=== PATIENT | male | born 1955 | race Caucasian/White ===

== ENCOUNTER 2022-06-30 10:26 | Emergency (ER) | payer SELFPAY ==
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
[2022-06-30 11:45] VITALS: BP 131/86; PULSE 85; RESP 16; TEMP 36.6; O2SAT 95; BMI 30.7
== END 2022-06-30 15:53 | disposition left against medical advice (07) ==
LOC: HO.ED 15:50
PROVIDERS: Emergency Provider Emergency Medicine; PCP Internal Medicine
DX: R07.81 Pleurodynia (principal)
CPT/HCPCS: 71101; 99281; 99283

== ENCOUNTER 2022-10-11 15:57 | Inpatient (IN) | payer OTHER, SELFPAY ==
--- NOTE | ~2022-10-11 | CT_ITS ---
EXAMINATION: CT ABDOMEN AND PELVIS WITHOUT CONTRAST CLINICAL INFORMATION: Right flank pain COMPARISON: CT abdomen pelvis 04/17/2017 TECHNIQUE: Multidetector volumetric imaging was performed from the superior aspect of the liver through the pubic symphysis. Sagittal and coronal reformatted images were obtained on the technologist's workstation. This CT examination was performed using dose optimization techniques as appropriate, variously including the following: *Automated exposure control *Adjustment of mA and/or kV according to patient size (this includes techniques or standardized protocols for targeted exams where dose is matched to indication/reason for exam; i.e. extremities or head) *Use of iterative reconstruction technique DLP: 665 mGy-cm FINDINGS: LUNG BASES: The visualized lung bases are unremarkable. LIVER, GALLBLADDER, AND BILIARY TREE: The liver is normal in size, shape, and attenuation. No focal hepatic lesion or biliary ductal dilatation is present. The gallbladder is unremarkable with no evidence of radiopaque gallstones, gallbladder wall thickening, or obvious pericholecystic inflammatory changes. PANCREAS: Unremarkable. SPLEEN: Unremarkable. ADRENAL GLANDS: Unremarkable. KIDNEYS AND URETERS: Left kidney: Moderate to marked hydronephrosis of left kidney with distention renal pelvis calyces and the proximal left ureter. There is an obstructing 5 mm stone in the left ureter at about the level of the L4 vertebrae. Sagittal image 47/118 series 6. Similar findings of a left ureteral stone at L4 and hydronephrosis left kidney seen on the prior CAT scan of 04/17/2017. On the renal ultrasound exam of 04/03/2019 there was no hydronephrosis. No additional ureteral stone. There are several stones in left kidney at the mid upper pole measuring less than 1 mm. Right kidney: No renal or ureteral calculus. No hydronephrosis. Both kidneys are of normal size and contour with normal cortical thickness. BLADDER: Unremarkable. GASTROINTESTINAL TRACT: No acute abnormality. There is no bowel wall thickening /edema. There is no bowel obstruction. There is a moderate volume of stool in the colon. The appendix is normal . The small bowel loops are unremarkable. The stomach is normal. There is no hiatal hernia. ABDOMINAL WALL: No significant hernia is appreciated. LYMPH NODES: Normal. VASCULAR: Unremarkable. PELVIC VISCERA: Unremarkable. OSSEOUS STRUCTURES: Multilevel degenerative spondylosis spine. Vacuum disc phenomenon L5-S1. CT/CT abdomen pelvis wo IV con IMPRESSION: Moderate to marked hydronephrosis of left kidney due to an obstructing 5 mm stone in the left ureter. Similar findings of a left ureteral stone at L4 and hydronephrosis left kidney seen on the prior CAT scan of 04/17/2017. On the renal ultrasound exam of 04/03/2019 there was no hydronephrosis. Fleischner guidelines were followed.
--- NOTE | ~2022-10-11 | FL_ITS ---
EXAMINATION: XR FLUOROSCOPY WITH IMAGES CLINICAL INFORMATION: Left cystoscopy, ureteroscopy, retrograde. Left hydronephrosis and ureteral calculus. COMPARISON: CT abdomen noncontrast 10/11/2022. TECHNIQUE: Fluoroscopy Supervised By: Dr. Goldy Ramirez. Fluoroscopy Time: 29 seconds. Cumulative Dose: 12.4 mGy. Images: 2. FINDINGS: First fluoroscopic image shows contrast in the lower left ureter. The follow-up fluoroscopic image shows proximal end left ureteral stent in position. FL/FL guidance in OR IMPRESSION: Fluoroscopy for urologic procedures.
[2022-10-11 16:10] VITALS: BP 162/98; PULSE 101; RESP 22; TEMP 36.6; O2SAT 95; BMI 30.8
--- NOTE | 2022-10-11 16:12 | ED.GENADULT ---
HPI - General Adult General Chief complaint: Urogenital-Male <THEO Chance - Last Filed: 10/17/22 12:28> Stated complaint: catscan? <THEO Chanec - Last Filed: 10/17/22 12:28> Time Seen by Provider: 10/11/22 20:36 <THEO Chance - Last Filed: 10/17/22 12:28> Source: patient <Verónica Hackett MD - Last Filed: 10/11/22 21:14> Mode of arrival: ambulatory <Verónica Hackett MD - Last Filed: 10/11/22 21:14> History of Present Illness HPI narrative: 67-year-old male who presents with worsening left flank pain since 5 days with associated abdominal distension, dysuria, chills and nausea. [facility]. <Verónica Hackett MD - Last Filed: 10/11/22 21:14> Related Data Home medications: Home Medications Medication Instructions Recorded Confirmed atorvastatin 80 mg tablet 40 mg PO BEDTIME 10/11/22 10/11/22 fluticasone 250 mcg-salmeterol 50 1 inh inhalation BID 10/11/22 10/11/22 mcg/dose blistr powdr for inhalation (Wixela Inhub) lisinopril 2.5 mg tablet 2.5 mg PO DAILY 10/11/22 10/11/22 metformin 500 mg tablet 500 mg PO DAILY 10/11/22 10/11/22 multivitamin 1 tab PO DAILY 10/11/22 10/11/22 sertraline 100 mg tablet 100 mg PO BEDTIME 10/11/22 10/11/22 tiotropium bromide 2.5 2 puff inhalation DAILY 10/11/22 10/11/22 mcg/actuation mist for inhalation (Spiriva Respimat) trazodone 50 mg tablet 50 mg PO BEDTIME PRN Insomnia 10/11/22 10/11/22 Previous Rx's Medication Instructions Recorded phenazopyridine 100 mg tablet 100 mg PO TID PRN Spasm 4 days #12 10/12/22 (Pyridium) tabs sulfamethoxazole 800 1 tab PO BID 3 days #6 tabs 10/12/22 mg-trimethoprim 160 mg tablet (Bactrim DS) tamsulosin 0.4 mg capsule 0.4 mg PO BEDTIME 14 days #14 caps 10/12/22 tramadol 50 mg tablet 50 mg PO Q6H PRN pain (scale score 10/12/22 1-3) #8 tabs <THEO Chance - Last Filed: 10/17/22 12:28> Allergies/adverse reactions: Allergies Allergy/AdvReac Type Severity Reaction Status Date / Time No Known Allergies Allergy Verified 06/30/22 11:48 [No Known Allergies*] <THEO Chance - Last Filed: 10/17/22 12:28> Review of Systems Review of Systems: Pertinent positives and negatives as stated in HPI <Verónica Hackett MD - Last Filed: 10/11/22 21:14> PMFSH Past Medical History Source: nursing notes reviewed <Verónica Hackett MD - Last Filed: 10/11/22 21:14> Medical History: Medical History Essential hypertension Mixed hyperlipidemia Mood disorder Non-insulin dependent type 2 diabetes mellitus <THEO Chance - Last Filed: 10/17/22 12:28> Social History Social History: Social History Patient Tobacco Use Status: Former Tobacco user service: Yes Current occupational status: retired <THEO Chance - Last Filed: 10/17/22 12:28> Physical Exam ED Vital Signs: Vital Signs - 24 hr 10/11/22 16:10 10/11/22 20:37 Temperature 98 F 98.6 F Pulse Rate 101 H 94 Respiratory Rate 22 H Blood Pressure 162/98 H 140/86 H Pulse Oximetry 95 95 Oxygen Delivery Method Room Air Room Air BMI result Body Mass Index 30.8 <THEO Chance - Last Filed: 10/17/22 12:28> Vital Signs - 24 hr 10/11/22 16:10 10/11/22 20:37 Temperature 98 F 98.6 F Pulse Rate 101 H 94 Respiratory Rate 22 H Blood Pressure 162/98 H 140/86 H Pulse Oximetry 95 95 Oxygen Delivery Method Room Air Room Air BMI result Body Mass Index 30.8 VITAL SIGNS: Reviewed. GENERAL: Well developed, well nourished, in no acute distress. HEAD: Normocephalic/atraumatic EYES: PERRLA, EOMI LUNGS: Normal breath sounds. No adventitious sounds or accessory muscle use. SpO2<95> CARDIOVASCULAR: Regular rate and rhythm without noted murmurs ABDOMEN: Soft, left flank pain on palpation, non-distended with bowel sounds. MUSCULOSKELETAL: No tenderness, deformities, or effusions noted on gross inspection. EXTREMITIES: No cyanosis, clubbing or edema. SKIN: Inspection of the skin reveals no rashes NEUROLOGIC: Alert and oriented x 4. Strength and sensation to light touch were grossly intact x 4. <Verónica Hackett MD - Last Filed: 10/11/22 21:14> Course Course Course Narrative: RME: 67 yold male preesnts to the ED for Right flank pain for 1 weeks. patient has known kidney stones in right side. patient states pain has worsening. Patient states no nausea or vomitting. patient states no fever or chills. labs, UA, CT scan of abdomen ordered <THEO Chance - Last Filed: 10/17/22 12:28> Medications Administered Discontinued Medications Generic Name Dose Route Start Last Admin Trade Name Freq PRN Reason Stop Dose Admin Acetaminophen 975 mg 10/11/22 21:30 10/11/22 21:54 Acetaminophen 325 Mg Tablet PO 10/11/22 21:31 975 mg ONCE ONE Administration Fentanyl 25 mcg 10/11/22 21:00 10/11/22 21:52 Fentanyl Citrate/Pf 100 Mcg/2 Ml Vial IVPUSH 10/11/22 21:01 25 mcg ONCE ONE Administration Protocol Sodium Chloride 1,000 mls @ 999 mls/hr 10/11/22 21:00 10/11/22 22:56 Ns IV 10/11/22 22:00 Infused .Q1H1M KUMAR Infusion Ceftriaxone Sodium 1 gm/ 50 mls @ 100 mls/hr 10/11/22 22:00 10/11/22 22:25 Sodium Chloride IV Infused Q24H KUMAR Infusion Sodium Chloride 1,000 mls @ 80 mls/hr 10/11/22 21:45 10/12/22 07:18 Ns IVCONT 80 mls/hr .[id number] KUMAR Administration Insulin Human Lispro 0 unit 10/12/22 07:30 10/12/22 07:19 Insulin Lispro 100 Unit/Ml 3 Ml Vial SUBCUT Not Given QIDAS [facility] Protocol Morphine Sulfate 4 mg 10/11/22 21:13 10/12/22 08:54 Morphine Sulfate 4 Mg/Ml Cartridge IVPUSH 4 mg Q4H PRN Administration Pain, Severe (Pain Scale 7-10) Protocol Ondansetron HCl 4 mg 10/11/22 21:13 10/12/22 08:54 Ondansetron Hcl 4 Mg/2 Ml Vial IVPUSH 4 mg Q8H PRN Administration Nausea and Vomiting Sodium Chloride 3 ml 10/12/22 00:00 10/12/22 07:11 0.9 % Sodium Chloride Flush 3 Ml Syringe IVFLUSH Not Given QSTHE [facility] Trazodone HCl 50 mg 10/12/22 05:06 10/12/22 05:33 Trazodone Hcl 50 Mg Tablet PO 10/12/22 05:07 50 mg ONCE ONE Administration <THEO Chance - Last Filed: 10/17/22 12:28> Medications Administered Discontinued Medications Generic Name Dose Route Start Last Admin Trade Name Freq PRN Reason Stop Dose Admin Acetaminophen 975 mg 10/11/22 21:30 10/11/22 21:54 Acetaminophen 325 Mg Tablet PO 10/11/22 21:31 975 mg ONCE ONE Administration Fentanyl 25 mcg 10/11/22 21:00 10/11/22 21:52 Fentanyl Citrate/Pf 100 Mcg/2 Ml Vial IVPUSH 10/11/22 21:01 25 mcg ONCE ONE Administration Protocol Sodium Chloride 1,000 mls @ 999 mls/hr 10/11/22 21:00 10/11/22 22:56 Ns IV 10/11/22 22:00 Infused .Q1H1M [facility] Infusion Ceftriaxone Sodium 1 gm/ 50 mls @ 100 mls/hr 10/11/22 22:00 10/11/22 22:25 Sodium Chloride IV Infused Q24H [facility] Infusion Sodium Chloride 1,000 mls @ 80 mls/hr 10/11/22 21:45 10/12/22 07:18 Ns IVCONT 80 mls/hr .[id number] [facility] Administration Insulin Human Lispro 0 unit 10/12/22 07:30 10/12/22 07:19 Insulin Lispro 100 Unit/Ml 3 Ml Vial SUBCUT [facility] Protocol Morphine Sulfate 4 mg 10/11/22 21:13 10/12/22 08:54 Morphine Sulfate 4 Mg/Ml Cartridge IVPUSH 4 mg Q4H PRN Administration Pain, Severe (Pain Scale 7-10) Protocol Ondansetron HCl 4 mg 10/11/22 21:13 10/12/22 08:54 Ondansetron Hcl 4 Mg/2 Ml Vial IVPUSH 4 mg Q8H PRN Administration Nausea and Vomiting Sodium Chloride 3 ml 10/12/22 00:00 10/12/22 07:11 0.9 % Sodium Chloride Flush 3 Ml Syringe IVFLUSH Not Given QSHIFT [facility] Trazodone HCl 50 mg 10/12/22 05:06 10/12/22 05:33 Trazodone Hcl 50 Mg Tablet PO 10/12/22 05:07 50 mg ONCE ONE Administration <Verónica Hackett MD - Last Filed: 10/11/22 21:14> Medical Decision Making Medical Decision Making [facility] Narrative: 2104: 67-year-old male with presentation in suspicion for renal colic versus diverticulitis and on review of all investigations my interpretation is that this patient has acute obstructive uropathy with 5 mm stone associated hydronephrosis as well as pain and OSKAR with leukocytosis. Will proceed with blood cultures and antibiotics. Consultation was placed to Urology. And patient received pain medication. <Verónica Hackett MD - Last Filed: 10/11/22 21:14> Differential Diagnosis Differential Diagnoses: The differential diagnosis associated with the presentation includes <Verónica Hackett MD - Last Filed: 10/11/22 21:14> Consult Healthcare Provider Management of the patient was discussed with: Boilermaker'S Assistant <Verónica Hackett MD - Last Filed: 10/11/22 21:14> 2102: I discussed briefly with Dr. Ramirez who recommends admission and procedure in the morning as well as rehydration. 2110: I discussed case with inpatient hospitalist who accepts admission. <Verónica Hackett MD - Last Filed: 10/11/22 21:14> Lab Data [facility] Lab Attestation statement: I reviewed the patient's lab results. <Verónica Hackett MD - Last Filed: 10/11/22 21:14> Please see the discussion above <Verónica Hackett MD - Last Filed: 10/11/22 21:14> Result Diagrams: 10/11/22 16:26 10/11/22 16:26 <THEO Chance - Last Filed: 10/17/22 12:28> Labs: Lab Results 10/11/22 10/11/22 10/11/22 Range/Units 16:26 16:26 21:05 WBC 13.3 H (4.8-10.8) X10*3/uL RBC 5.07 (4.60-5.80) X10*6/uL Hgb 15.0 (14.0-18.0) g/dl Hct 43.9 (42.0-52.0) % MCV 86.6 (80.0-98.0) fL MCH 29.6 (27.0-33.0) pg MCHC 34.2 (31.0-36.0) g/dl RDW 12.9 (11.0-16.0) % Plt Count 342 (160-400) X10*3/uL MPV 10.2 (9.4-12.4) fL Immature Gran % (Auto) 0.3 (0.0-0.4) % Neut % (Auto) 77.9 H (45-73) % Lymph % (Auto) 13.2 L (20-40) % [place] % (Auto) 7.9 (2-11) % Eos % (Auto) 0.3 (0-4) % Baso % (Auto) 0.4 (0-2) % Lymph # (Auto) 1.8 (1.2-4.9) X10*3/uL [place] # (Auto) 1.1 (0.1-1.2) X10*3/uL Eos # (Auto) 0.0 (0.0-0.4) X10*3/uL Baso # (Auto) 0.1 (0.0-0.2) X10*3/uL Abs Immat Gran (auto) 0.04 H (0.00-0.03) X10*3/uL Absolute Neuts (auto) 10.4 H (2.0-8.3) x10*3/uL Absolute Nucleated RBC 0.000 (0.0-0.012) X10*3/uL Nucleated RBC % (auto) 0.0 (0.0-0.2) /100WBC Sodium 137 (135-145) mmol/L Potassium 4.5 (3.3-5.1) mmol/L Chloride 104 (96-108) mmol/L Carbon Dioxide 23 (22-29) mmol/L Anion Gap 15 (12-20) BUN 18 H (9-16) mg/dL Creatinine 1.43 H (0.5-1.4) mg/dL Estim Creat Clear Calc 56.9 Estimated GFR 49 Random Glucose 163 H (60-115) mg/dL Lactic Acid (0.5-2.0) mmol/L Calcium 9.4 (8.4-10.2) mg/dL Total Bilirubin 0.6 (0.0-1.0) mg/dL AST 23 (5-37) U/L ALT 31 (0-40) U/L Alkaline Phosphatase 80 (39-117) U/L Total Protein 7.8 (6.5-8.0) g/dL Albumin 4.4 (3.5-5.0) g/dL COVID-19 (JADEN) Negative (Negative) COVID-19 Clin Com See Note 10/11/22 Range/Units 21:05 WBC (4.8-10.8) X10*3/uL RBC (4.60-5.80) X10*6/uL Hgb (14.0-18.0) g/dl Hct (42.0-52.0) % MCV (80.0-98.0) fL MCH (27.0-33.0) pg MCHC (31.0-36.0) g/dl RDW (11.0-16.0) % Plt Count (160-400) X10*3/uL MPV (9.4-12.4) fL Immature Gran % (Auto) (0.0-0.4) % Neut % (Auto) (45-73) % Lymph % (Auto) (20-40) % [place] % (Auto) (2-11) % Eos % (Auto) (0-4) % Baso % (Auto) (0-2) % Lymph # (Auto) (1.2-4.9) X10*3/uL [place] # (Auto) (0.1-1.2) X10*3/uL Eos # (Auto) (0.0-0.4) X10*3/uL Baso # (Auto) (0.0-0.2) X10*3/uL Abs Immat Gran (auto) (0.00-0.03) X10*3/uL Absolute Neuts (auto) (2.0-8.3) x10*3/uL Absolute Nucleated RBC (0.0-0.012) X10*3/uL Nucleated RBC % (auto) (0.0-0.2) /100WBC Sodium (135-145) mmol/L Potassium (3.3-5.1) mmol/L Chloride (96-108) mmol/L Carbon Dioxide (22-29) mmol/L Anion Gap (12-20) BUN (9-16) mg/dL Creatinine (0.5-1.4) mg/dL Estim Creat Clear Calc Estimated GFR Random Glucose (60-115) mg/dL Lactic Acid 1.4 (0.5-2.0) mmol/L Calcium (8.4-10.2) mg/dL Total Bilirubin (0.0-1.0) mg/dL AST (5-37) U/L ALT (0-40) U/L Alkaline Phosphatase (39-117) U/L Total Protein (6.5-8.0) g/dL Albumin (3.5-5.0) g/dL COVID-19 (JADEN) (Negative) COVID-19 Clin Com <THEO Chance - Last Filed: 10/17/22 12:28> Lab Results 10/11/22 10/11/22 10/11/22 Range/Units 16:26 16:26 21:05 WBC 13.3 H (4.8-10.8) X10*3/uL RBC 5.07 (4.60-5.80) X10*6/uL Hgb 15.0 (14.0-18.0) g/dl Hct 43.9 (42.0-52.0) % MCV 86.6 (80.0-98.0) fL MCH 29.6 (27.0-33.0) pg MCHC 34.2 (31.0-36.0) g/dl RDW 12.9 (11.0-16.0) % Plt Count 342 (160-400) X10*3/uL MPV 10.2 (9.4-12.4) fL Immature Gran % (Auto) 0.3 (0.0-0.4) % Neut % (Auto) 77.9 H (45-73) % Lymph % (Auto) 13.2 L (20-40) % [place] % (Auto) 7.9 (2-11) % Eos % (Auto) 0.3 (0-4) % Baso % (Auto) 0.4 (0-2) % Lymph # (Auto) 1.8 (1.2-4.9) X10*3/uL [place] # (Auto) 1.1 (0.1-1.2) X10*3/uL Eos # (Auto) 0.0 (0.0-0.4) X10*3/uL Baso # (Auto) 0.1 (0.0-0.2) X10*3/uL Abs Immat Gran (auto) 0.04 H (0.00-0.03) X10*3/uL Absolute Neuts (auto) 10.4 H (2.0-8.3) x10*3/uL Absolute Nucleated RBC 0.000 (0.0-0.012) X10*3/uL Nucleated RBC % (auto) 0.0 (0.0-0.2) /100WBC Sodium 137 (135-145) mmol/L Potassium 4.5 (3.3-5.1) mmol/L Chloride 104 (96-108) mmol/L Carbon Dioxide 23 (22-29) mmol/L Anion Gap 15 (12-20) BUN 18 H (9-16) mg/dL Creatinine 1.43 H (0.5-1.4) mg/dL Estim Creat Clear Calc 56.9 Estimated GFR 49 Random Glucose 163 H (60-115) mg/dL Lactic Acid (0.5-2.0) mmol/L Calcium 9.4 (8.4-10.2) mg/dL Total Bilirubin 0.6 (0.0-1.0) mg/dL AST 23 (5-37) U/L ALT 31 (0-40) U/L Alkaline Phosphatase 80 (39-117) U/L Total Protein 7.8 (6.5-8.0) g/dL Albumin 4.4 (3.5-5.0) g/dL COVID-19 (JADEN) Negative (Negative) COVID-19 Clin Com See Note 10/11/22 Range/Units 21:05 WBC (4.8-10.8) X10*3/uL RBC (4.60-5.80) X10*6/uL Hgb (14.0-18.0) g/dl Hct (42.0-52.0) % MCV (80.0-98.0) fL MCH (27.0-33.0) pg MCHC (31.0-36.0) g/dl RDW (11.0-16.0) % Plt Count (160-400) X10*3/uL MPV (9.4-12.4) fL Immature Gran % (Auto) (0.0-0.4) % Neut % (Auto) (45-73) % Lymph % (Auto) (20-40) % [place] % (Auto) (2-11) % Eos % (Auto) (0-4) % Baso % (Auto) (0-2) % Lymph # (Auto) (1.2-4.9) X10*3/uL [place] # (Auto) (0.1-1.2) X10*3/uL Eos # (Auto) (0.0-0.4) X10*3/uL Baso # (Auto) (0.0-0.2) X10*3/uL Abs Immat Gran (auto) (0.00-0.03) X10*3/uL Absolute Neuts (auto) (2.0-8.3) x10*3/uL Absolute Nucleated RBC (0.0-0.012) X10*3/uL Nucleated RBC % (auto) (0.0-0.2) /100WBC Sodium (135-145) mmol/L Potassium (3.3-5.1) mmol/L Chloride (96-108) mmol/L Carbon Dioxide (22-29) mmol/L Anion Gap (12-20) BUN (9-16) mg/dL Creatinine (0.5-1.4) mg/dL Estim Creat Clear Calc Estimated GFR Random Glucose (60-115) mg/dL Lactic Acid 1.4 (0.5-2.0) mmol/L Calcium (8.4-10.2) mg/dL Total Bilirubin (0.0-1.0) mg/dL AST (5-37) U/L ALT (0-40) U/L Alkaline Phosphatase (39-117) U/L Total Protein (6.5-8.0) g/dL Albumin (3.5-5.0) g/dL COVID-19 (JADEN) (Negative) COVID-19 Clin Com <Verónica Hackett MD - Last Filed: 10/11/22 21:14> Radiology Impression Radiologist Impression: My interpretation is in agreement with radiology's impression of the imaging study. <Verónica Hackett MD - Last Filed: 10/11/22 21:14> Chronic Conditions Patient?s care impacted by: Diabetes and Hypertension <Verónica Hackett MD - Last Filed: 10/11/22 21:14> Critical Care Time Critical Care Time Critical Care Time: Yes <Verónica Hackett MD - Last Filed: 10/11/22 21:14> Total Critical Care Time: 30 <Verónica Hackett MD - Last Filed: 10/11/22 21:14> Attestation: I personally attest to this time spent taking care of the patient. <Verónica Hackett MD - Last Filed: 10/11/22 21:14> Discharge Plan Discharge Clinical Impression: Obstruction, uropathy, Hydronephrosis, OSKAR (acute kidney injury) <THEO Chance - Last Filed: 10/17/22 12:28> Patient Disposition: Admitted As Inpatient <THEO Chance - Last Filed: 10/17/22 12:28> Discharge Date/Time: 10/12/22 12:00 <THEO Chance - Last Filed: 10/17/22 12:28>
[2022-10-11 16:32] LABS: MANUAL DIFF FLAG NO
[2022-10-11 16:34] LABS: Basophils Absolute Auto 0.1 X10*3/uL (0.0-0.2); Basophils Percent Auto 0.4 % (0-2); Eosinophils Percent Auto 0.3 % (0-4); Hematocrit 43.9 % (42.0-52.0); Imm Gran Abs Auto 0.04 X10*3/uL (0.00-0.03); Imm Gran Pct Auto 0.3 % (0.0-0.4); Lymphocytes Absolute Auto 1.8 X10*3/uL (1.2-4.9); Lymphocytes Percent Auto 13.2 % (20-40); Mean Corpuscular HGB Conc 34.2 g/dl (31.0-36.0); Mean Corpuscular Hemoglobin 29.6 pg (27.0-33.0); Mean Corpuscular Volume 86.6 fL (80.0-98.0); Mean Platelet Volume 10.2 fL (9.4-12.4); Monocytes Absolute Auto 1.1 X10*3/uL (0.1-1.2); Monocytes Percent Auto 7.9 % (2-11); Neutrophils Absolute Auto 10.4 x10*3/uL (2.0-8.3); Neutrophils Percent Auto 77.9 % (45-73); Platelet Count 342 X10*3/uL (160-400); Red Blood Count 5.07 X10*6/uL (4.60-5.80); Red Cell Distribution Width 12.9 % (11.0-16.0); White Blood Count 13.3 X10*3/uL (4.8-10.8)
[2022-10-11 16:48] LABS: Alanine Aminotransferase 31 U/L (0-40); Albumin Level 4.4 g/dL (3.5-5.0); Alkaline Phosphatase 80 U/L (39-117); Anion Gap 15 (12-20); Aspartate Amino Transferase 23 U/L (5-37); Bilirubin Total 0.6 mg/dL (0.0-1.0); Blood Urea Nitrogen 18 mg/dL (9-16); Calcium 9.4 mg/dL (8.4-10.2); Carbon Dioxide 23 mmol/L (22-29); Chloride 104 mmol/L (96-108); Creatinine Clr Calc Pharmacy 56.9; Estimated Glomerular Filt Rate 49; Glucose Random 163 mg/dL (60-115); Potassium 4.5 mmol/L (3.3-5.1); Sodium 137 mmol/L (135-145); Total Protein 7.8 g/dL (6.5-8.0)
--- NOTE | 2022-10-11 20:00 | PC.NURSE ---
Nursing Assessment: Pt's BP is stable, pt was fibrile, and complain flank pain 8/10 x 1 week. Pt lungs sounds are clear throughout lobes bilaterally. pt's bowel sound are hypoactive 4 quadrants and distended. pt complains a constant pain on the LLQ and jarvis snot radiates. Pt denies N/V, diarrhea and constipation. +skin turgor, urine is dark and roly. IV 20 on his RAC was inserted. Labs has been drawn.
[2022-10-11 20:37] VITALS: BP 140/86; PULSE 94; TEMP 37; O2SAT 95
[2022-10-11 21:18] VITALS: TEMP 38.4
[2022-10-11 21:27] LABS: COVID-19 Test Negative (Negative); IDNOW Serial# 16C4AD1C; Lactic Acid 1.4 mmol/L (0.5-2.0)
--- NOTE | 2022-10-11 21:34 | PM.IMHP ---
History of Present Illness Date of Service: 10/11/22 Chief Complaint: Left flank pain This is a 67-year-old male with pertinent history of pkb-idvhacw-wfqxhxiyi diabetes mellitus, essential hypertension, mood disorder, mixed hyperlipidemia presents to the emergency department for evaluation left flank pain. Patient states it started about 5 days prior to presentation, with radiation to the groin. Has been progressive and associated with abdominal distention, fever, chills and nausea. Does endorse occasional dysuria. No similar symptoms in the past. Patient states he had a CT scan done at [place] which showed a kidney stone. Patient denies chest discomfort, palpitations, shortness of breath, changes in bowel habits. Also endorses poor p.o. intake In the emergency department, imaging with hydronephrosis of left kidney due to obstructing stone in the left ureter Review of Systems Constitutional: Constitutional: Reports chills, Reports fever(s), Reports lethargy and Reports malaise Cardiovascular: Cardiovascular: Reports no additional cardiovascular complaints Respiratory: Respiratory: Reports no additional respiratory complaints Gastrointestinal: Gastrointestinal: Reports abdominal pain Genitourinary: Genitourinary: Reports dysuria Neurologic: Reports system reviewed and no additional complaints, except as documented [facility] Medical History Essential hypertension Mixed hyperlipidemia Mood disorder Non-insulin dependent type 2 diabetes mellitus Functional capacity: independent ambulation Pertinent family history: No family history of CAD Social History Smoked in Last 30 Days: No Use of substances other than those prescribed or required for medical reasons: No Advance Directives: No Advance Directives Information Provided: No Meds Allergies Allergy/AdvReac Type Severity Reaction Status Date / Time No Known Allergies Allergy Verified 06/30/22 11:48 [No Known Allergies*] Active Medications: Current Medications Acetaminophen (Acetaminophen Supp 650 Mg Supp.Rect) 650 mg MN Q6H PRN PRN Reason: Pain, Mild (Pain Scale 1-3) Sodium Chloride (Ns) 1,000 mls @ 999 mls/hr IV .Q1H1M KUMAR Stop: 10/11/22 22:00 Melatonin (Melatonin 3 Mg Tablet) 6 mg PO BEDTIME PRN PRN Reason: Insomnia Morphine Sulfate (Morphine Sulfate 4 Mg/Ml Cartridge) 4 mg IVPUSH Q4H PRN; Protocol PRN Reason: Pain, Severe (Pain Scale 7-10) Ondansetron HCl (Ondansetron Hcl 4 Mg/2 Ml Vial) 4 mg IVPUSH Q8H PRN PRN Reason: Nausea and Vomiting Pharmacy Consult (Consult Rx Perform Med Rec) 1 each MISCELLANE ONCE PRN PRN Reason: Consult order Sodium Chloride (0.9 % Sodium Chloride Flush 3 Ml Syringe) 3 ml IVFLUSH QSHIFT KUMAR Physical Exam Vital Signs and Narrative: Vital Signs: Last Vital Signs Temp 101.2 F H 10/11/22 21:18 Pulse 94 10/11/22 20:37 Resp 22 H 10/11/22 16:10 BP 140/86 H 10/11/22 20:37 Pulse Ox 95 10/11/22 20:37 O2 Del Method 10/11/22 20:37 BMI result Body Mass Index 30.8 Middle-aged male lying in bed in mild distress Neck supple, no JVD Regular rate and rhythm, S1-S2 heard Regular breath sounds bilaterally, no wheezing or crackles appreciated Abdomen with left-sided CVA tenderness, no guarding, no rebound tenderness, no rigidity Patient is awake, alert and oriented to self, place, time and person ; no focal motor deficit Psych: Normal mood No pedal edema Results Labs 10/11/22 16:26 10/11/22 16:26 Labs: Laboratory Results - last 24 hr 10/11/22 10/11/22 10/11/22 16:26 16:26 21:05 MCV 86.6 MCH 29.6 MCHC 34.2 RDW 12.9 Plt Count 342 MPV 10.2 Immature Gran % (Auto) 0.3 Neut % (Auto) 77.9 H Lymph % (Auto) 13.2 L [place] % (Auto) 7.9 Eos % (Auto) 0.3 Baso % (Auto) 0.4 Lymph # (Auto) 1.8 [place] # (Auto) 1.1 Eos # (Auto) 0.0 Baso # (Auto) 0.1 Abs Immat Gran (auto) 0.04 H Absolute Neuts (auto) 10.4 H Absolute Nucleated RBC 0.000 Nucleated RBC % (auto) 0.0 Anion Gap 15 Estim Creat Clear Calc 56.9 Estimated GFR 49 Random Glucose 163 H Lactic Acid Calcium 9.4 Total Bilirubin 0.6 AST 23 ALT 31 Alkaline Phosphatase 80 Total Protein 7.8 Albumin 4.4 COVID-19 (JADEN) Negative COVID-19 Clin Com See Note 10/11/22 21:05 MCV MCH MCHC RDW Plt Count MPV Immature Gran % (Auto) Neut % (Auto) Lymph % (Auto) [place] % (Auto) Eos % (Auto) Baso % (Auto) Lymph # (Auto) [place] # (Auto) Eos # (Auto) Baso # (Auto) Abs Immat Gran (auto) Absolute Neuts (auto) Absolute Nucleated RBC Nucleated RBC % (auto) Anion Gap Estim Creat Clear Calc Estimated GFR Random Glucose Lactic Acid 1.4 Calcium Total Bilirubin AST ALT Alkaline Phosphatase Total Protein Albumin COVID-19 (JADEN) COVID-19 Clin Com Imaging Radiologist's Impressions: Impressions Abdomen/Pelvis CT 10/11/22 16:58 IMPRESSION: Moderate to marked hydronephrosis of left kidney due to an obstructing 5 mm stone in the left ureter. Similar findings of a left ureteral stone at L4 and hydronephrosis left kidney seen on the prior CAT scan of 04/17/2017. On the renal ultrasound exam of 04/03/2019 there was no hydronephrosis. Fleischner guidelines were followed. Assessment and Plan (1) Obstruction, uropathy: Status: Acute (2) Hydronephrosis: Status: Acute (3) OSKAR (acute kidney injury): Status: Acute Plan This is a 67-year-old male with pertinent history of pzi-eoljzdw-wgfzivemp diabetes mellitus, essential hypertension, mood disorder, mixed hyperlipidemia presents to the emergency department for evaluation left flank pain. #. Left-sided hydronephrosis due to obstructing left ureteral stone: Will admit patient and initiate IV opioids p.r.n. for pain control. Urology consulted from the ER, appreciate assistance. Will keep NPO from midnight for possible stent. UA pending. Treat empirically with IV antibiotics. #. Sepsis due to clinical pyelonephritis: Resuscitated with IV crystalloid in the ER. Blood culture pending. Initiated on antibiotics as above. Lactic acid obtained. #. OSKAR, prerenal stage I due to intravascular volume depletion: Monitor urine output and creatinine due to fluid resuscitation. Avoid nephrotoxins #. Fob-emddvvs-qydzfuggl diabetes mellitus: Hold metformin. Initiate Accu-Cheks with sliding scale insulin #. Essential hypertension: Lisinopril in the setting of OSKAR. #. Mood disorder: Continue home mood stabilizers Med rec pending DVT prophylaxis: Mechanical. Hold Lovenox until urology evaluation NPO after midnight Full code Admit as inpatient and will require two night minimum hospital stay for IV antibiotics. Urology evaluation pending with possible stent Time Spent With Patient Time: Total time managing care of this patient today ____ minutes. Quality Stroke Does the patient have a stroke diagnosis?: No VTE Prior VTE?: No VTE Risk Level:: Medical - moderate - high VTE Device Contraindication: N/A - Device Ordered VTE Drug Contraindication: Treatment Not Indicated
--- NOTE | 2022-10-11 21:47 | PHA.MEDREC ---
Pharmacy Consult ? Medication Reconciliation Pharmacy has completed the medication reconciliation.spoke with patient [facility] medications
[2022-10-11] MEDS: fentaNYL citrate/PF 100 MCG/2 ML VIAL 25 MCG IVPUSH (21:52)
[2022-10-11] MEDS: Acetaminophen 325 MG TABLET 975 MG PO (21:54)
[2022-10-11] MEDS: 0.9 % Sodium Chloride 1,000 ML 999 ML IV (21:55)
[2022-10-11] MEDS: cefTRIAXone sodium 1 GM in 0.9 % Sodium Chloride 50 ML IV (21:55)
[2022-10-11 22:05] LABS: Appearance Urine Clear; Color Urine Yellow; Glucose Urine UA 250 mg/dL (Negative); Leukocyte Esterase Urine Trace (Negative); Nitrite Urine Negative (Negative); PH 6.5 (5.0-9.0); Specific Gravity - Urine 1.025 (1.005-1.025); UMIC TRIGGER UACC YES; Urine Blood Moderate (2+) (Negative); Urine Ketones 15 mg/dL (Negative); Urine Protein Trace mg/dL (Neg-Trace)
[2022-10-11 22:07] LABS: Bacteria Urine None Seen (None Seen); Hyaline Casts Urine 0-2 /LPF (0-2); RBC Urine >20 /HPF (0-2); Squamous Epithelial Cell Urine 0-2 /HPF (0-2); WBC Urine 0-5 /HPF (0-5)
[2022-10-11 23:49] VITALS: BP 119/67; PULSE 78; RESP 18; TEMP 36.8; O2SAT 93
[2022-10-12] VITALS (8 sets, daily range): BP systolic 138–160; BP diastolic 74–96; PULSE 72–85; RESP 16–18; TEMP 36.4–36.9; O2SAT 91–96
[2022-10-12] MEDS: 0.9 % Sodium Chloride 1,000 ML 80 ML IVCONT ×2 (00:04→07:18)
[2022-10-12] MEDS: Morphine Sulfate 4 MG/ML CARTRIDGE IVPUSH ×3 (00:05→08:54)
[2022-10-12] MEDS: traZODone HCL 50 MG TABLET PO (05:33)
[2022-10-12 05:55] LABS: MANUAL DIFF FLAG NO
[2022-10-12 06:09] LABS: Basophils Percent Auto 0.2 % (0-2); Eosinophils Absolute Auto 0.1 X10*3/uL (0.0-0.4); Eosinophils Percent Auto 0.5 % (0-4); Hematocrit 42.3 % (42.0-52.0); Hemoglobin 14.2 g/dl (14.0-18.0); Imm Gran Abs Auto 0.06 X10*3/uL (0.00-0.03); Imm Gran Pct Auto 0.5 % (0.0-0.4); Lymphocytes Absolute Auto 2.2 X10*3/uL (1.2-4.9); Lymphocytes Percent Auto 16.9 % (20-40); Mean Corpuscular HGB Conc 33.6 g/dl (31.0-36.0); Mean Corpuscular Hemoglobin 29.4 pg (27.0-33.0); Mean Corpuscular Volume 87.6 fL (80.0-98.0); Mean Platelet Volume 10.1 fL (9.4-12.4); Monocytes Absolute Auto 1.2 X10*3/uL (0.1-1.2); Neutrophils Absolute Auto 9.3 x10*3/uL (2.0-8.3); Neutrophils Percent Auto 72.9 % (45-73); Platelet Count 307 X10*3/uL (160-400); Red Blood Count 4.83 X10*6/uL (4.60-5.80); White Blood Count 12.8 X10*3/uL (4.8-10.8)
[2022-10-12 06:24] LABS: Anion Gap 15 (12-20); Blood Urea Nitrogen 18 mg/dL (9-16); Calcium 8.9 mg/dL (8.4-10.2); Carbon Dioxide 22 mmol/L (22-29); Chloride 104 mmol/L (96-108); Creatinine Clr Calc Pharmacy 56.1; Estimated Glomerular Filt Rate 49; Glucose Random 193 mg/dL (60-115); Potassium 4.5 mmol/L (3.3-5.1); Sodium 136 mmol/L (135-145)
--- NOTE | 2022-10-12 06:58 | PC.NURSE ---
assumed care of patient, pt aox3, calm and cooperative, VSS. awaiting inpt bed
[2022-10-12 07:13] LABS: Glucose, Whole Blood 201 mg/dL (60-115)
--- NOTE | 2022-10-12 08:23 | MHC.CM.PN ---
PT REPORTS HE LIVES ALONE AND IS FULLY INDEPENDENT HE DENIES USE OF DME OR SERVICES [facility] PCP: VERONA ATWOOD [facility] + HE SAYS HIS DAUGHTER IS HIS HCP, COPY REQUESTED IMM DELIVERED, COPY SENT TO [facility] CURRENT DCP IS HOME NO SERVICES PT TO ARRANGE TRANSPORT
[2022-10-12] MEDS: ondansetron HCL 4 MG/2 ML VIAL IVPUSH (08:54)
--- NOTE | 2022-10-12 10:49 | P.PNIM_ITS ---
Subjective Subjective Date of Service: 10/12/22 Review of Systems Follow Left ureteral stone still with left flank pain denies N,V,D Physical Exam Vital Signs: Vital Signs: Last Vital Signs Temp 98.5 F 10/12/22 05:35 Pulse 72 10/12/22 07:08 Resp 16 10/12/22 07:08 BP 145/80 H 10/12/22 07:08 Pulse Ox 93 10/12/22 07:08 O2 Del Method 10/12/22 07:08 BMI result Body Mass Index 30.8 Appearing in no acute distress lung sounds are clear to auscultation heart regular rate rhythm, clear S1, S2 positive bowel sounds, abdomen is soft, nontender neuro patient is alert x3, no focal deficits Objective Data Active Medications Acetaminophen (Acetaminophen Supp 650 Mg Supp.Rect) 650 mg SD Q6H PRN PRN Reason: Pain, Mild (Pain Scale 1-3) Dextrose (Dextrose 50 % 25 Gm/50 Ml Syringe) 25 gm IVPUSH Q15M PRN; Protocol PRN Reason: per Hypoglycemia Standing Ord. Glucose (Glucose Gel 15 Gm Gel..Gram.) 15 gm PO Q15M PRN; Protocol PRN Reason: per Hypoglycemia Standing Ord. Ceftriaxone Sodium 1 gm/ (Sodium Chloride) 50 mls @ 100 mls/hr IV Q24H [facility] Last Infusion: 10/11/22 22:25 Dose: 0 mls/hr Documented By: PATRICIA Sodium Chloride (Ns) 1,000 mls @ 80 mls/hr IVCONT .[id number] [facility] Last Admin: 10/12/22 07:18 Dose: 80 mls/hr Documented By: REMINGTON Insulin Human Lispro (Insulin Lispro 100 Unit/Ml 3 Ml Vial) 0 unit SUBCUT QIDAC [facility]; Protocol Last Admin: 10/12/22 07:19 Dose: Not Given Documented By: REMINGTON Non-Admin Reason: Patient Refused Melatonin (Melatonin 3 Mg Tablet) 6 mg PO BEDTIME PRN PRN Reason: Insomnia Morphine Sulfate (Morphine Sulfate 4 Mg/Ml Cartridge) 4 mg IVPUSH Q4H PRN; P rotocol PRN Reason: Pain, Severe (Pain Scale 7-10) Last Admin: 10/12/22 08:54 Dose: 4 mg Documented By: REMINGTON Ondansetron HCl (Ondansetron Hcl 4 Mg/2 Ml Vial) 4 mg IVPUSH Q8H PRN PRN Reason: Nausea and Vomiting Last Admin: 10/12/22 08:54 Dose: 4 mg Documented By: REMINGTON Pharmacy Consult (Consult Rx Perform Med Rec) 1 each MISCELLANE ONCE PRN PRN Reason: Consult order Sodium Chloride (0.9 % Sodium Chloride Flush 3 Ml Syringe) 3 ml IVFLUSH QSHIFT [facility] Last Admin: 10/12/22 07:11 Dose: Not Given Documented By: REMINGTON Non-Admin Reason: IV Running Labs 10/12/22 05:45 10/12/22 05:45 Labs: Laboratory Results - last 24 hr 10/11/22 10/11/22 10/11/22 16:26 16:26 21:05 MCV 86.6 MCH 29.6 MCHC 34.2 RDW 12.9 Plt Count 342 MPV 10.2 Immature Gran % (Auto) 0.3 Neut % (Auto) 77.9 H Lymph % (Auto) 13.2 L [place] % (Auto) 7.9 Eos % (Auto) 0.3 Baso % (Auto) 0.4 Lymph # (Auto) 1.8 [place] # (Auto) 1.1 Eos # (Auto) 0.0 Baso # (Auto) 0.1 Abs Immat Gran (auto) 0.04 H Absolute Neuts (auto) 10.4 H Absolute Nucleated RBC 0.000 Nucleated RBC % (auto) 0.0 Anion Gap 15 Estim Creat Clear Calc 56.9 Estimated GFR 49 POC Glucose Random Glucose 163 H Lactic Acid Calcium 9.4 Total Bilirubin 0.6 AST 23 ALT 31 Alkaline Phosphatase 80 Total Protein 7.8 Albumin 4.4 Urine Color Urine Appearance Urine pH Ur Specific [place] Urine Protein Urine Glucose (UA) Urine Ketones Urine Blood Urine Nitrite Ur Leukocyte Esterase Urine RBC Urine WBC Ur Squamous Epith Cells Urine Bacteria Hyaline Casts COVID-19 (JADEN) Negative COVID-19 Clin Com See Note 10/11/22 10/11/22 10/12/22 21:05 21:58 05:45 MCV 87.6 MCH 29.4 MCHC 33.6 RDW 13.0 Plt Count 307 MPV 10.1 Immature Gran % (Auto) 0.5 H Neut % (Auto) 72.9 Lymph % (Auto) 16.9 L [place] % (Auto) 9.0 Eos % (Auto) 0.5 Baso % (Auto) 0.2 Lymph # (Auto) 2.2 [place] # (Auto) 1.2 Eos # (Auto) 0.1 Baso # (Auto) 0.0 Abs Immat Gran (auto) 0.06 H Absolute Neuts (auto) 9.3 H Absolute Nucleated RBC 0.000 Nucleated RBC % (auto) 0.0 Anion Gap Estim Creat Clear Calc Estimated GFR POC Glucose Random Glucose Lactic Acid 1.4 Calcium Total Bilirubin AST ALT Alkaline Phosphatase Total Protein Albumin Urine Color Yellow Urine Appearance Clear Urine pH 6.5 Ur Specific [place] 1.025 Urine Protein Trace Urine Glucose (UA) 250 H Urine Ketones 15 Urine Blood Moderate (2+) H Urine Nitrite Negative Ur Leukocyte Esterase Trace H Urine RBC >20 H Urine WBC 0-5 Ur Squamous Epith Cells 0-2 Urine Bacteria None Seen Hyaline Casts 0-2 COVID-19 (JADEN) COVID-19 Clin Com 10/12/22 10/12/22 05:45 07:06 MCV MCH MCHC RDW Plt Count MPV Immature Gran % (Auto) Neut % (Auto) Lymph % (Auto) [place] % (Auto) Eos % (Auto) Baso % (Auto) Lymph # (Auto) [place] # (Auto) Eos # (Auto) Baso # (Auto) Abs Immat Gran (auto) Absolute Neuts (auto) Absolute Nucleated RBC Nucleated RBC % (auto) Anion Gap 15 Estim Creat Clear Calc 56.1 Estimated GFR 49 POC Glucose 201 H Random Glucose 193 H Lactic Acid Calcium 8.9 Total Bilirubin AST ALT Alkaline Phosphatase Total Protein Albumin Urine Color Urine Appearance Urine pH Ur Specific [place] Urine Protein Urine Glucose (UA) Urine Ketones Urine Blood Urine Nitrite Ur Leukocyte Esterase Urine RBC Urine WBC Ur Squamous Epith Cells Urine Bacteria Hyaline Casts COVID-19 (JADEN) COVID-19 Clin Com Assessment and Plan (1) OSKAR (acute kidney injury): Status: Acute Plan This is a 67-year-old male with pertinent history of syl-nfkibzt-bbgkbjncv diabetes mellitus, essential hypertension, mood disorder, mixed hyperlipidemia presents to the emergency department for evaluation left flank pain. Left-sided hydronephrosis due to obstructing left ureteral stone pain management NPO for stent placement today continue Rocephin for now Sepsis due to clinical pyelonephritis Resuscitated with IV crystalloid in the ER.? Blood culture pending.?normal lactic acid Initiated on antibiotics as above. OSKAR, prerenal stage I due to intravascular volume depletion Monitor urine output and creatinine due to fluid resuscitation.? Avoid nephrotoxins Ojg-rpiatwq-gpernovrd diabetes mellitus Hold metformin.? ss, ada diet after surgery Essential hypertension Lisinopril in the setting of OSKAR. Mood disorder Continue home mood stabilizers DVT prophylaxis:? Mechanical.? Hold Lovenox until urology evaluation Attending Dr. Alvarado Full code Continued hospital stay for IV antibiotics.? Urology evaluation pending with possible stent? Time Spent With Patient Time: Total time managing care of this patient today ____ minutes. Quality Stroke Does the patient have a stroke diagnosis?: No VTE Prior VTE?: No VTE Risk Level:: Medical - moderate - high VTE Device Contraindication: N/A - Device Ordered VTE Drug Contraindication: Treatment Not Indicated
--- NOTE | 2022-10-12 11:49 | HO.ANESPROP2 ---
HPI - Anesthesia Eval Consult details Narrative: cysto, retrogrades, laser PMFSH Active Problems Active Problems: All Active Problems (Updated 10/11/22 @ 21:39 by Balta Shah MD) Obstruction, uropathy (Acute) Hydronephrosis (Acute) OSKAR (acute kidney injury) (Acute) Past Medical History Medical History Essential hypertension Mixed hyperlipidemia Mood disorder Non-insulin dependent type 2 diabetes mellitus Functional capacity: independent ambulation Family History Family history of problems with anesthesia: No Surgical History History of Problems with Anesthesia: No Social History Social History Patient Tobacco Use Status: Former Tobacco user service: Yes Current occupational status: [employer] Allergies Allergy/AdvReac Type Severity Reaction Status Date / Time No Known Allergies Allergy Verified 06/30/22 11:48 [No Known Allergies*] Active Medications: Current Medications Acetaminophen (Acetaminophen Supp 650 Mg Supp.Rect) 650 mg CA Q6H PRN PRN Reason: Pain, Mild (Pain Scale 1-3) Dextrose (Dextrose 50 % 25 Gm/50 Ml Syringe) 25 gm IVPUSH Q15M PRN; Protocol PRN Reason: per Hypoglycemia Standing Ord. Glucose (Glucose Gel 15 Gm Gel..Gram.) 15 gm PO Q15M PRN; Protocol PRN Reason: per Hypoglycemia Standing Ord. Ceftriaxone Sodium 1 gm/ (Sodium Chloride) 50 mls @ 100 mls/hr IV Q24H [facility] Last Infusion: 10/11/22 22:25 Dose: Infused Sodium Chloride (Ns) 1,000 mls @ 80 mls/hr IVCONT .[id number] [facility] Last Admin: 10/12/22 07:18 Dose: 80 mls/hr Insulin Human Lispro (Insulin Lispro 100 Unit/Ml 3 Ml Vial) 0 unit SUBCUT QIDACHS [facility]; Protocol Last Admin: 10/12/22 07:19 Dose: Not Given Melatonin (Melatonin 3 Mg Tablet) 6 mg PO BEDTIME PRN PRN Reason: Insomnia Morphine Sulfate (Morphine Sulfate 4 Mg/Ml Cartridge) 4 mg IVPUSH Q4H PRN; Protocol PRN Reason: Pain, Severe (Pain Scale 7-10) Last Admin: 10/12/22 08:54 Dose: 4 mg Ondansetron HCl (Ondansetron Hcl 4 Mg/2 Ml Vial) 4 mg IVPUSH Q8H PRN PRN Reason: Nausea and Vomiting Last Admin: 10/12/22 08:54 Dose: 4 mg Pharmacy Consult (Consult Rx Perform Med Rec) 1 each MISCELLANE ONCE PRN PRN Reason: Consult order Sodium Chloride (0.9 % Sodium Chloride Flush 3 Ml Syringe) [facility] Last Admin: 10/12/22 07:11 Dose: Not Given Home Medications Medication Instructions Recorded Confirmed Last Taken Type atorvastatin 80 mg tablet 40 mg PO BEDTIME 10/11/22 10/11/22 10/10/22 History fluticasone 250 mcg-salmeterol 50 1 inh inhalation BID 10/11/22 10/11/22 10/11/22 History mcg/dose blistr powdr for inhalation (Wixela Inhub) lisinopril 2.5 mg tablet 2.5 mg PO DAILY 10/11/22 10/11/22 10/11/22 History metformin 500 mg tablet 500 mg PO DAILY 10/11/22 10/11/22 10/11/22 History multivitamin 1 tab PO DAILY 10/11/22 10/11/22 10/11/22 History sertraline 100 mg tablet 100 mg PO BEDTIME 10/11/22 10/11/22 10/10/22 History tiotropium bromide 2.5 2 puff inhalation DAILY 10/11/22 10/11/22 10/11/22 History mcg/actuation mist for inhalation (Spiriva Respimat) trazodone 50 mg tablet 50 mg PO BEDTIME PRN Insomnia 10/11/22 10/11/22 10/10/22 History Exam Exam Date and Time: October 12, 2022 1149 Height,Weight and Vital Signs: Height 5 ft 9 in Weight 94.801 kg Last Vital Signs Temp 98.5 F 10/12/22 05:35 Pulse 72 10/12/22 07:08 Resp 16 10/12/22 07:08 BP 145/80 H 10/12/22 07:08 Pulse Ox 93 10/12/22 07:08 O2 Del Method 10/12/22 07:08 Pertinent Lab Results Pertinent Lab Results: Laboratory Tests 10/11/22 10/11/22 10/11/22 16:26 16:26 21:05 WBC 13.3 H RBC 5.07 Hgb 15.0 Hct 43.9 MCV 86.6 MCH 29.6 MCHC 34.2 RDW 12.9 Plt Count 342 MPV 10.2 Immature Gran % (Auto) 0.3 Neut % (Auto) 77.9 H Lymph % (Auto) 13.2 L [place] % (Auto) 7.9 Eos % (Auto) 0.3 Baso % (Auto) 0.4 Lymph # (Auto) 1.8 [place] # (Auto) 1.1 Eos # (Auto) 0.0 Baso # (Auto) 0.1 Abs Immat Gran (auto) 0.04 H Absolute Neuts (auto) 10.4 H Absolute Nucleated RBC 0.000 Nucleated RBC % (auto) 0.0 Sodium 137 Potassium 4.5 Chloride 104 Carbon Dioxide 23 Anion Gap 15 BUN 18 H Creatinine 1.43 H Estim Creat Clear Calc 56.9 Estimated GFR 49 POC Glucose Random Glucose 163 H Lactic Acid Calcium 9.4 Total Bilirubin 0.6 AST 23 ALT 31 Alkaline Phosphatase 80 Total Protein 7.8 Albumin 4.4 Urine Color Urine Appearance Urine pH Ur Specific [place] Urine Protein Urine Glucose (UA) Urine Ketones Urine Blood Urine Nitrite Ur Leukocyte Esterase Urine RBC Urine WBC Ur Squamous Epith Cells Urine Bacteria Hyaline Casts COVID-19 (JADEN) Negative COVID-19 Clin Com See Note 10/11/22 10/11/22 10/12/22 21:05 21:58 05:45 WBC 12.8 H RBC 4.83 Hgb 14.2 Hct 42.3 MCV 87.6 MCH 29.4 MCHC 33.6 RDW 13.0 Plt Count 307 MPV 10.1 Immature Gran % (Auto) 0.5 H Neut % (Auto) 72.9 Lymph % (Auto) 16.9 L [place] % (Auto) 9.0 Eos % (Auto) 0.5 Baso % (Auto) 0.2 Lymph # (Auto) 2.2 [place] # (Auto) 1.2 Eos # (Auto) 0.1 Baso # (Auto) 0.0 Abs Immat Gran (auto) 0.06 H Absolute Neuts (auto) 9.3 H Absolute Nucleated RBC 0.000 Nucleated RBC % (auto) 0.0 Sodium Potassium Chloride Carbon Dioxide Anion Gap BUN Creatinine Estim Creat Clear Calc Estimated GFR POC Glucose Random Glucose Lactic Acid 1.4 Calcium Total Bilirubin AST ALT Alkaline Phosphatase Total Protein Albumin Urine Color Yellow Urine Appearance Clear Urine pH 6.5 Ur Specific [place] 1.025 Urine Protein Trace Urine Glucose (UA) 250 H Urine Ketones 15 Urine Blood Moderate (2+) H Urine Nitrite Negative Ur Leukocyte Esterase Trace H Urine RBC >20 H Urine WBC 0-5 Ur Squamous Epith Cells 0-2 Urine Bacteria None Seen Hyaline Casts 0-2 COVID-19 (JADEN) COVID-19 Clin Com 10/12/22 10/12/22 05:45 07:06 WBC RBC Hgb Hct MCV MCH MCHC RDW Plt Count MPV Immature Gran % (Auto) Neut % (Auto) Lymph % (Auto) [place] % (Auto) Eos % (Auto) Baso % (Auto) Lymph # (Auto) [place] # (Auto) Eos # (Auto) Baso # (Auto) Abs Immat Gran (auto) Absolute Neuts (auto) Absolute Nucleated RBC Nucleated RBC % (auto) Sodium 136 Potassium 4.5 Chloride 104 Carbon Dioxide 22 Anion Gap 15 BUN 18 H Creatinine 1.45 H Estim Creat Clear Calc 56.1 Estimated GFR 49 POC Glucose 201 H Random Glucose 193 H Lactic Acid Calcium 8.9 Total Bilirubin AST ALT Alkaline Phosphatase Total Protein Albumin Urine Color Urine Appearance Urine pH Ur Specific [place] Urine Protein Urine Glucose (UA) Urine Ketones Urine Blood Urine Nitrite Ur Leukocyte Esterase Urine RBC Urine WBC Ur Squamous Epith Cells Urine Bacteria Hyaline Casts COVID-19 (JADEN) COVID-19 Clin Com Airway Mallampati Class: II TM Dist: >3cm Neck ROM: Full Heart: ok Lungs: ok Other: sat 94% on room air. Assessment and Plan Final Anesthetic Review Family History of Problems with Anesthesia: No History of Problems with Anesthesia: No NPO: Yes ASA Class: III Final Preanesthetic Review: No Changes in Pt Med Stat, Meds/Allgs Chart Reviewed, Consent Obtained/Reviewed and Anes Risks/Benef Reviewed Patient Risk: Intermediate Procedure Risk: Low Anesthetic Plan Anesthetic Plan: GA and Agree w/ Assess. and Plan Disposition: Standard PACU
--- NOTE | 2022-10-12 12:04 | P.CNUR_ITS ---
History of Present Illness Consult details Consult date: 10/12/22 Narrative: CC: left mid ureteric stone 67 yr male prior stone pain on left side CT 4 mm distal left ureter stone recommed uertoscopyu Review of Systems Constitutional: Constitutional: Reports as per HPI and Reports no additional constitutional complaints Cardiovascular: Cardiovascular: Reports as per HPI and Reports no additional cardiovascular complaints Respiratory: Respiratory: Reports as per HPI and Reports no additional respiratory complaints Gastrointestinal: Gastrointestinal: Reports as per HPI and Reports no additional gastrointestinal complaints Genitourinary: Genitourinary: Reports as per HPI Musculoskeletal: Musculoskeletal: Reports no additional musculoskeletal complaints and Reports as per HPI Neurologic: Reports system reviewed and no additional complaints, except as documented and Reports as per HPI [facility] Past Medical History Medical History Essential hypertension Mixed hyperlipidemia Mood disorder Non-insulin dependent type 2 diabetes mellitus Functional capacity: independent ambulation Social History Social History Patient Tobacco Use Status: Former Tobacco user service: Yes Current occupational status: [employer] Allergies Allergy/AdvReac Type Severity Reaction Status Date / Time No Known Allergies Allergy Verified 06/30/22 11:48 [No Known Allergies*] Active Medications: Current Medications Acetaminophen (Acetaminophen Supp 650 Mg Supp.Rect) 650 mg MN Q6H PRN PRN Reason: Pain, Mild (Pain Scale 1-3) Dextrose (Dextrose 50 % 25 Gm/50 Ml Syringe) 25 gm IVPUSH Q15M PRN; Protocol PRN Reason: per Hypoglycemia Standing Ord. Glucose (Glucose Gel 15 Gm Gel..Gram.) 15 gm PO Q15M PRN; Protocol PRN Reason: per Hypoglycemia Standing Ord. Ceftriaxone Sodium 1 gm/ (Sodium Chloride) 50 mls @ 100 mls/hr IV Q24H [facility] Last Infusion: 10/11/22 22:25 Dose: Infused Sodium Chloride (Ns) 1,000 mls @ 80 mls/hr IVCONT .[id number] [facility] Last Admin: 10/12/22 07:18 Dose: 80 mls/hr Insulin Human Lispro (Insulin Lispro 100 Unit/Ml 3 Ml Vial) 0 unit SUBCUT QIDACHS [facility]; Protocol Last Admin: 10/12/22 07:19 Dose: Not Given Melatonin (Melatonin 3 Mg Tablet) 6 mg PO BEDTIME PRN PRN Reason: Insomnia Morphine Sulfate (Morphine Sulfate 4 Mg/Ml Cartridge) 4 mg IVPUSH Q4H PRN; Protocol PRN Reason: Pain, Severe (Pain Scale 7-10) Last Admin: 10/12/22 08:54 Dose: 4 mg Ondansetron HCl (Ondansetron Hcl 4 Mg/2 Ml Vial) 4 mg IVPUSH Q8H PRN PRN Reason: Nausea and Vomiting Last Admin: 10/12/22 08:54 Dose: 4 mg Pharmacy Consult (Consult Rx Perform Med Rec) 1 each MISCELLANE ONCE PRN PRN Reason: Consult order Sodium Chloride (0.9 % Sodium Chloride Flush 3 Ml Syringe) [facility] Admin: 10/12/22 07:11 Dose: Not Given Home Medications Medication Instructions Recorded Confirmed Last Taken Type atorvastatin 80 mg tablet 40 mg PO BEDTIME 10/11/22 10/11/22 10/10/22 History fluticasone 250 mcg-salmeterol 50 1 inh inhalation BID 10/11/22 10/11/22 10/11/22 History mcg/dose blistr powdr for inhalation (Wixela Inhub) lisinopril 2.5 mg tablet 2.5 mg PO DAILY 10/11/22 10/11/22 10/11/22 History metformin 500 mg tablet 500 mg PO DAILY 10/11/22 10/11/22 10/11/22 History multivitamin 1 tab PO DAILY 10/11/22 10/11/22 10/11/22 History sertraline 100 mg tablet 100 mg PO BEDTIME 10/11/22 10/11/22 10/10/22 History tiotropium bromide 2.5 2 puff inhalation DAILY 10/11/22 10/11/22 10/11/22 History mcg/actuation mist for inhalation (Spiriva Respimat) trazodone 50 mg tablet 50 mg PO BEDTIME PRN Insomnia 10/11/22 10/11/22 10/10/22 History Physical Exam Vital Signs: Vital Signs: Last Vital Signs Temp 98.5 F 10/12/22 05:35 Pulse 72 10/12/22 07:08 Resp 16 10/12/22 07:08 BP 145/80 H 10/12/22 07:08 Pulse Ox 93 10/12/22 07:08 O2 Del Method 10/12/22 07:08 BMI result Body Mass Index 30.8 Const: General: cooperative, healthy appearing, comfortable and no acute distress Orientation/consciousness: patient oriented x3 HEENT: Face and sinus: Yes normal facial exam Mouth: moist mucous membranes Neck: Neck: Yes normal visual inspection, Yes full ROM and Yes trachea midline Chest: Chest palpation & inspection: normal inspection of the chest Resp: Effort & Inspection: normal respiratory effort, able to speak in complete sentences and no respiratory distress GI: Inspection: Yes normal to inspection Back/Spine/Pelvis: Cervical Spine: normal cervical lordosis Thoracic/Lumbar Spine: thoracic and lumbar spine normal to inspection Skin: General skin exam: no rashes or lesions noted Neuro: General: patient oriented x3, tone normal and moves all extremities Extrem: General: Yes normal to inspection and Yes capillary refill normal Results Labs 10/12/22 05:45 10/12/22 05:45 Labs: Abnormal lab results 10/11/22 10/11/22 10/11/22 Range/Units 16:26 16:26 21:58 WBC 13.3 H (4.8-10.8) X10*3/uL Immature Gran % (Auto) (0.0-0.4) % Neut % (Auto) 77.9 H (45-73) % Lymph % (Auto) 13.2 L (20-40) % Abs Immat Gran (auto) 0.04 H (0.00-0.03) X10*3/uL Absolute Neuts (auto) 10.4 H (2.0-8.3) x10*3/uL BUN 18 H (9-16) mg/dL Creatinine 1.43 H (0.5-1.4) mg/dL POC Glucose (60-115) mg/dL Random Glucose 163 H (60-115) mg/dL Urine Glucose (UA) 250 H (Negative) mg/dL Urine Blood Moderate (2+) H (Negative) Ur Leukocyte Esterase Trace H (Negative) Urine RBC >20 H (0-2) /HPF 10/12/22 10/12/22 10/12/22 Range/Units 05:45 05:45 07:06 WBC 12.8 H (4.8-10.8) X10*3/uL Immature Gran % (Auto) 0.5 H (0.0-0.4) % Neut % (Auto) (45-73) % Lymph % (Auto) 16.9 L (20-40) % Abs Immat Gran (auto) 0.06 H (0.00-0.03) X10*3/uL Absolute Neuts (auto) 9.3 H (2.0-8.3) x10*3/uL BUN 18 H (9-16) mg/dL Creatinine 1.45 H (0.5-1.4) mg/dL POC Glucose 201 H (60-115) mg/dL Random Glucose 193 H (60-115) mg/dL Urine Glucose (UA) (Negative) mg/dL Urine Blood (Negative) Ur Leukocyte Esterase (Negative) Urine RBC (0-2) /HPF Short CBC 10/11/22 10/12/22 Range/Units 16:26 05:45 WBC 13.3 H 12.8 H (4.8-10.8) X10*3/uL Hgb 15.0 14.2 (14.0-18.0) g/dl Hct 43.9 42.3 (42.0-52.0) % Plt Count 342 307 (160-400) X10*3/uL BMP 10/11/22 10/12/22 16:26 05:45 Sodium 137 136 Potassium 4.5 4.5 Chloride 104 104 Carbon Dioxide 23 22 BUN 18 H 18 H Creatinine 1.43 H 1.45 H Calcium 9.4 8.9 Liver Function 10/11/22 Range/Units 16:26 Total Bilirubin 0.6 (0.0-1.0) mg/dL AST 23 (5-37) U/L ALT 31 (0-40) U/L Alkaline Phosphatase 80 (39-117) U/L Albumin 4.4 (3.5-5.0) g/dL Urine 10/11/22 Range/Units 21:58 Urine Color Yellow Urine Appearance Clear Urine pH 6.5 (5.0-9.0) Ur Specific [place] 1.025 (1.005-1.025) Urine Protein Trace (Neg-Trace) mg/dL Urine Glucose (UA) 250 H (Negative) mg/dL All other labs normal. Assessment and Plan (1) Obstruction, uropathy: Status: Acute (2) Hydronephrosis: Status: Acute Plan Ureteroscopy We discussed the nature of the decision and reasonable alternatives for performing ureteroscopy. Options such as medical therapy were discussed. Interventions include chemical dissolution, ESWL, ureteroscopy with laser lithotripsy and stent placement, PCNL. The relative uncertainties and benefits related to each alternate procedure were adequately discussed. General surgical risks including, but not limited to - pain, bleeding, infection, myocardial infarction, pulmonary embolus, deep vein thrombosis and cerebrovascular accident which may result in further hospitalization were discussed. Full disclosure of the procedure as well as all major risks, benefits and complications were discussed including but not limited to damage to the urethra, bladder and kidney infection, damage to the ureter, stent migration or malposi tion, scarring to the renal pelvis, remnant stone fragments, subsequent stone passage with need for secondary procedures. The overall secondary procedure rate is approximately 10-15%. The overall clearance rate is approximately 90-95%. Success of the procedure in the short-term does not necessarily guarantee that long-term success will be maintained. Suitable follow up will need to be maintained. The patient showed understanding of discussion and wishes to proceed with - cystoscopy, retrograde, ureteroscopy, possible lithotripsy/stone basketing and stent on the left side Time Spent With Patient Time: Total time managing care of this patient today ____ minutes. Procedures Date of Service Date of Service: 10/12/22
[2022-10-12 12:15] LABS: Glucose, Whole Blood 180 mg/dL (60-115)
--- NOTE | 2022-10-12 12:23 | MHC.SHP ---
Pre-Procedural Eval Section A Date of Service: 10/12/22 The patient is an INPATIENT: Yes Changes since office visit: No Cold of Flu in the past 2 weeks, No New Medical Problems, No Changes in Medication and No Patient answered all questions The History & Physical has been completed within 30 days and I have reviewed it.: Yes Section B Chief Complaint: Left flank pain Allergies: Allergies Allergy/AdvReac Type Severity Reaction Status Date / Time No Known Allergies Allergy Verified 06/30/22 11:48 [No Known Allergies*] Plan Diagnosis/Plan: Unchanged (left retrograde, ureteroscopy, stent placement) I have reviewed the history and physical and performed a pertinent physical examination on my patient. No changes have occurred unless specified. Time Spent With Patient Time: Total time managing care of this patient today ____ minutes.
--- NOTE | 2022-10-12 13:04 | W.PM.OPN ---
Operative Note Operative Note Date of Service: 10/12/22 Narrative: PreOperative Diagnosis: left mid ureteric stone Post Operative Diagnosis: left mid ureteric stone with hydronephrosis Procedure: - cystoscopy, left retrograde - left dilatation of ureteric orifice under fluoroscopy - left ureteroscopy,, stone basketing - left stent placement Surgeon: Dr Goldy Ramirez Anesthesia: General Indications for procedure: left mid ureteric stone - hydornephrosis Procedure: After informed consent was verified the patient was brought to the operating room and placed in a supine position. Anesthesia was administered per protocol. The patient was placed in a modified dorsal lithotomy position and prepped and draped in a sterile fashion. Safety pause time-out and side of surgery were confirmed. Images were available for review. Antibiotic administration confirmed. A 22 [place] cystoscope was inserted per urethra. The urethra was without abnormality. The bladder was normal in its entirety. Both ureteric orifices were seen in normal position. The left ureteric orifice was cannulated and a retrograde examination was performed. Obstruction at mid ureter . A Sensor guidewire was placed up to the level of the renal pelvis under fluoroscopy. Debris extruded around the wire The rigid cystoscope was removed. A Adkins dilator was placed over the Sensor guidewire and used to dilate the ureteric orifice under fluoroscopy. The dilator was removed. The semi rigid ureteral scope was placed alongside the Sensor guidewire. STone encountered. Stone fragments were removed from the ureter using a zero basket. Once the fragments were removed a decision was made to place a ureteric stent. Based on the height of the patient a 6 Fr x 28 stent was used. The string was removed from the stent prior to placement The rigid cystoscope was backloaded over the wire and advanced into the bladder. A 6 [place] by 28 cm double-J stent was placed into the renal pelvis and bladder under a combination of fluoroscopy and direct visualization. The bladder was emptied. The patient tolerated the procedure well and was extubated in the operating room. They were transferred in stable condition to the recovery area. Pathology: stones Drains: Double J stent as described above
--- NOTE | 2022-10-12 14:39 | MHC.CM.PN ---
Male 67 S/P Ureteral stone removal w stent placement. Patient is discharged to home self care. Patient has arranged for transportation home.
--- NOTE | 2022-10-12 14:41 | PM.DS ---
DS: Providers Provider Date of Service: 10/12/22 Date of admission: 10/11/22 21:13 Primary care physician: Frank Sorensen Consults: 10/11/22 20:53 Consult to Urology Stat Consulting Provider: Goldy Ramirez Reason for consultation: LEFT Flank Pain, hydro 5mm stone, with OSKAR Has provider been notified: Yes Attending physician on discharge: Curly Alvarado Discharging clinician: Gwen King DS: Diagnosis Discharge Diagnosis (1) Obstruction, uropathy: Status: Acute (2) Hydronephrosis: Status: Acute DS: Summary Hospital Course Hospital Course: HP as per admitting provider This is a 67-year-old male with pertinent history of lvv-gmzdeoy-ynadzazio diabetes mellitus, essential hypertension, mood disorder, mixed hyperlipidemia presents to the emergency department for evaluation left flank pain.? Patient states it started about 5 days prior to presentation, with radiation to the groin.? Has been progressive and associated with abdominal distention, fever, chills and nausea.? Does endorse occasional dysuria.? No similar symptoms in the past.? Patient states he had a CT scan done at [place] which showed a kidney stone.? Patient denies chest discomfort, palpitations, shortness of breath, changes in bowel habits.? Also endorses poor p.o. intake In the emergency department, imaging with hydronephrosis of left kidney due to obstructing stone in the left ureter . Left-sided hydronephrosis due to obstructing left ureteral stone s/p cystoscopy with left dilatation of ureteric orifice, left ureteroscopy with stone basketing and left stent placement Surgery was unremarkable. Patient is stable for discharge Bactrim for 2 more days as per Urology Sepsis due to clinical pyelonephritis. Resolved Resuscitated with IV crystalloid in the ER.? Blood culture pending.?normal lactic acid. OSKAR, prerenal stage I due to intravascular volume depletion Fluid resuscitated Avoid nephrotoxins Aem-nbnyklg-encakjaxu diabetes mellitus Continue home medications Essential hypertension Lisinopril in the setting of OSKAR. Mood disorder Continue home mood stabilizers Time Spent with Patient Time attestation: Total time managing care of this patient today ____ minutes. Discharge coordination time: Greater than 30 minutes Quality: Safe Use of Opioids Does Pt have an Active Cancer Diagnosis on the Problem List?: No Quality: Stroke Does the patient have a stroke diagnosis?: No Physical Exam Vital Signs: Vital Signs: Last Vital Signs Temp 97.9 F 10/12/22 13:57 Pulse 85 10/12/22 13:57 Resp 18 10/12/22 13:57 BP 138/80 10/12/22 13:57 Pulse Ox 94 10/12/22 13:57 O2 Del Method 10/12/22 13:57 BMI result Body Mass Index 30.8 Appearing in no acute distress head is normocephalic atraumatic eyes pupils are PERRLA sclera is anicteric mouth throat mucous membranes are intact and moist neck is supple no lymphadenopathy, no JVD noted lung sounds are clear to auscultation heart regular rate rhythm, clear S1, S2 positive bowel sounds, abdomen is soft, nontender neuro patient is alert x3, no focal deficits DS: Data Data Completed and Pending Pending studies at discharge: Pending at discharge 10/12/22 12:59 Surgical [PTH] Routine Labs on day of discharge: Laboratory Results - last 24 hr 10/11/22 10/11/22 10/11/22 16:26 16:26 21:05 WBC 13.3 H RBC 5.07 Hgb 15.0 Hct 43.9 MCV 86.6 MCH 29.6 MCHC 34.2 RDW 12.9 Plt Count 342 MPV 10.2 Immature Gran % (Auto) 0.3 Neut % (Auto) 77.9 H Lymph % (Auto) 13.2 L [place] % (Auto) 7.9 Eos % (Auto) 0.3 Baso % (Auto) 0.4 Lymph # (Auto) 1.8 [place] # (Auto) 1.1 Eos # (Auto) 0.0 Baso # (Auto) 0.1 Abs Immat Gran (auto) 0.04 H Absolute Neuts (auto) 10.4 H Absolute Nucleated RBC 0.000 Nucleated RBC % (auto) 0.0 Sodium 137 Potassium 4.5 Chloride 104 Carbon Dioxide 23 Anion Gap 15 BUN 18 H Creatinine 1.43 H Estim Creat Clear Calc 56.9 Estimated GFR 49 POC Glucose Random Glucose 163 H Lactic Acid Calcium 9.4 Total Bilirubin 0.6 AST 23 ALT 31 Alkaline Phosphatase 80 Total Protein 7.8 Albumin 4.4 Urine Color Urine Appearance Urine pH Ur Specific [place] Urine Protein Urine Glucose (UA) Urine Ketones Urine Blood Urine Nitrite Ur Leukocyte Esterase Urine RBC Urine WBC Ur Squamous Epith Cells Urine Bacteria Hyaline Casts COVID-19 (JADEN) Negative COVID-19 Clin Com See Note 10/11/22 10/11/22 10/12/22 21:05 21:58 05:45 WBC 12.8 H RBC 4.83 Hgb 14.2 Hct 42.3 MCV 87.6 MCH 29.4 MCHC 33.6 RDW 13.0 Plt Count 307 MPV 10.1 Immature Gran % (Auto) 0.5 H Neut % (Auto) 72.9 Lymph % (Auto) 16.9 L [place] % (Auto) 9.0 Eos % (Auto) 0.5 Baso % (Auto) 0.2 Lymph # (Auto) 2.2 [place] # (Auto) 1.2 Eos # (Auto) 0.1 Baso # (Auto) 0.0 Abs Immat Gran (auto) 0.06 H Absolute Neuts (auto) 9.3 H Absolute Nucleated RBC 0.000 Nucleated RBC % (auto) 0.0 Sodium Potassium Chloride Carbon Dioxide Anion Gap BUN Creatinine Estim Creat Clear Calc Estimated GFR POC Glucose Random Glucose Lactic Acid 1.4 Calcium Total Bilirubin AST ALT Alkaline Phosphatase Total Protein Albumin Urine Color Yellow Urine Appearance Clear Urine pH 6.5 Ur Specific [place] 1.025 Urine Protein Trace Urine Glucose (UA) 250 H Urine Ketones 15 Urine Blood Moderate (2+) H Urine Nitrite Negative Ur Leukocyte Esterase Trace H Urine RBC >20 H Urine WBC 0-5 Ur Squamous Epith Cells 0-2 Urine Bacteria None Seen Hyaline Casts 0-2 COVID-19 (JADEN) COVID-19 Clin Com 10/12/22 10/12/22 10/12/22 05:45 07:06 12:11 WBC RBC Hgb Hct MCV MCH MCHC RDW Plt Count MPV Immature Gran % (Auto) Neut % (Auto) Lymph % (Auto) [place] % (Auto) Eos % (Auto) Baso % (Auto) Lymph # (Auto) [place] # (Auto) Eos # (Auto) Baso # (Auto) Abs Immat Gran (auto) Absolute Neuts (auto) Absolute Nucleated RBC Nucleated RBC % (auto) Sodium 136 Potassium 4.5 Chloride 104 Carbon Dioxide 22 Anion Gap 15 BUN 18 H Creatinine 1.45 H Estim Creat Clear Calc 56.1 Estimated GFR 49 POC Glucose 201 H 180 H Random Glucose 193 H Lactic Acid Calcium 8.9 Total Bilirubin AST ALT Alkaline Phosphatase Total Protein Albumin Urine Color Urine Appearance Urine pH Ur Specific [place] Urine Protein Urine Glucose (UA) Urine Ketones Urine Blood Urine Nitrite Ur Leukocyte Esterase Urine RBC Urine WBC Ur Squamous Epith Cells Urine Bacteria Hyaline Casts COVID-19 (JADEN) COVID-19 Clin Com Discharge Plan Discharge Anticipated Discharge Date/Time: 10/12/22 13:24 Patient Disposition: Home, Self-Care Discharge Diagnosis: ureteric stone Referrals: Frank Sorensen [Primary Care Provider] - 1 Week Discharge Medications: New phenazopyridine [Pyridium] 100 mg tablet 100 mg PO TID PRN (Reason: Spasm) 4 Days Qty: 12 0RF sulfamethoxazole-trimethoprim [Bactrim DS] 800-160 mg tablet 1 tab PO BID 3 Days Qty: 6 0RF tramadol 50 mg tablet 50 mg PO Q6H PRN (Reason: pain (scale score 1-3)) Qty: 8 0RF tamsulosin 0.4 mg capsule 0.4 mg PO BEDTIME 14 Days Qty: 14 0RF Continued multivitamin Tablet 1 tab PO DAILY metformin 500 mg Tablet 500 mg PO DAILY fluticasone propion-salmeterol [Wixela Inhub] 250-50 mcg/dose Blister With Device 1 inh INHALATION BID atorvastatin 80 mg Tablet 40 mg PO BEDTIME trazodone 50 mg Tablet 50 mg PO BEDTIME PRN (Reason: Insomnia) Rx Instructions: may repeat x1 dose sertraline 100 mg Tablet 100 mg PO BEDTIME lisinopril 2.5 mg Tablet 2.5 mg PO DAILY Spiriva Respimat 2.5 mcg/actuation Mist 2 puff INHALATION DAILY Discharge Orders: Discharge Order (Routine); Ordered 10/12/22 Ordered By: Goldy Ramirez Diet: Advance to usual diet Activity on Discharge: As tolerated Stand Alone Forms: Patient Portal Discharge page Care Plan Goals: stones Health Concerns: stones Plan of Treatment: stones Assessment: stones
[2022-10-17 15:25] LABS: Stone Source KIDNEY STONE
== END 2022-10-12 13:25 | disposition home or self-care (01) | DRG 854 ==
LOC: HO.ED 21:14 → HO.EDOVER 21:18 → HO.IMC 10-12 11:59
PROVIDERS: Physician Assistant; Urology; Admitting Provider Student in an Organized Health Care Education/Training Program; Emergency Provider Student in an Organized Health Care Education/Training Program; PCP Internal Medicine; Visit Provider Nurse Practitioner Acute Care
PROC: 0TJ98ZZ Inspection of Ureter, Via Natural or Artificial Opening Endoscopic (ICD-10-PCS; CPT 52351; principal; 2022-10-12 12:00)
DX: A41.9 Sepsis, unspecified organism (principal); N13.6 Pyonephrosis; N17.9 Acute kidney failure, unspecified; E78.2 Mixed hyperlipidemia; E11.9 Type 2 diabetes mellitus without complications; F39 Unspecified mood [affective] disorder; Z20.822 Contact with and (suspected) exposure to COVID-19; Z87.891 Personal history of nicotine dependence; Z79.84 Long term (current) use of oral hypoglycemic drugs; Z79.899 Other long term (current) drug therapy
CPT/HCPCS: 36415; 74176; 80048; 80053; 81001; 82365; 82947; 83605; 85025; 87040; 87635; 88300; 99285; C1758; C1769; C1894; C2617; J0696; J1170; J1956; J2270; J2405; J3010; Q9967

== ENCOUNTER → 2022-10-27 10:48 | Outpatient (BNVA) | payer OTHER, SELFPAY | PROVIDERS: PCP Internal Medicine; Visit Provider Urology | DX: N20.0 Calculus of kidney (principal) | CPT/HCPCS: 52310; 99212 ==

== ENCOUNTER 2023-05-18 08:55 | Inpatient (IN) | payer OTHER, SELFPAY ==
[2023-05-18] VITALS (12 sets, daily range): BP systolic 108–141; BP diastolic 55–78; PULSE 75–103; RESP 14–28; TEMP 36.7–37; O2SAT 88–96; BMI 29.3
--- NOTE | ~2023-05-18 | XR_ITS ---
EXAMINATION: XR CHEST 9:31 AM CLINICAL INFORMATION: Cough, dyspnea COMPARISON: 06/30/2022 TECHNIQUE: Frontal view of the chest was obtained. FINDINGS: There are new bilateral coarse reticulonodular opacities right worse than left, with thickened interlobular septae. No pleural effusions are evident. The cardiac silhouette is not well assessed secondary to the poor inspiratory effort XR/XR chest 1V IMPRESSION: New bilateral reticulonodular opacities, and thickened interlobular septae right slightly worse than left. Differential considerations include congestive failure, bilateral pneumonia, granulomatous disease and lymphangitic spread of tumor, amongst other etiologies. Follow-up is recommended to confirm clearing. Chest CT with contrast might be of benefit if symptoms and findings persist.
--- NOTE | ~2023-05-18 | CT_ITS ---
EXAMINATION: CT CHEST, ABDOMEN AND PELVIS WITH CONTRAST CLINICAL INFORMATION: Dyspnea. Nausea. Weight loss. COMPARISON: 10/11/2022 TECHNIQUE: Multidetector volumetric imaging was performed of the chest, abdomen and pelvis following administration of 85 mL Omnipaque 350 intravenous contrast. Oral contrast was not administered. Sagittal and coronal reformatted images were obtained on the technologist's workstation. This CT examination was performed using dose optimization techniques as appropriate, variously including the following: *Automated exposure control *Adjustment of mA and/or kV according to patient size (this includes techniques or standardized protocols for targeted exams where dose is matched to indication/reason for exam; i.e. extremities or head) *Use of iterative reconstruction technique DLP: 652 mGy-cm FINDINGS: CHEST: CHEST WALL: No acute abnormality. MEDIASTINUM: Imaged thyroid gland is unremarkable. No bulky axillary or hilar lymphadenopathy. Subcarinal lymph node measures 1.2 x 1.6 cm. Dilated right pulmonary artery. Heart size is normal. No pericardial effusion. CORONARY ARTERY CALCIFICATION: No significant coronary artery calcification appreciated on this exam. PLEURA: No pleural effusion. LUNGS: Multifocal peripheral consolidative opacities and peribronchial groundglass opacities involving all 5 lobes. Central airways are patent. ABDOMEN AND PELVIS: ABDOMINAL AND PELVIC WALL: No acute abnormality. LIVER AND BILIARY TREE: The liver is diffusely decreased in attenuation. No focal hepatic lesion. No biliary ductal dilatation. GALLBLADDER: Unremarkable. PANCREAS: No ductal dilatation. SPLEEN: Not enlarged. ADRENAL GLANDS: No adrenal mass. KIDNEYS AND URETERS: The kidneys are symmetric in size and enhancement. There are bilateral subcentimeter hypodensities that are too small to adequately characterize. There are punctate nonobstructing left renal calculi. No hydronephrosis or hydroureter. GASTROINTESTINAL TRACT: Small and large bowel loops are of normal caliber. No small bowel obstruction. VASCULAR: Normal caliber abdominal aorta. LYMPH NODES: No bulky abdominal or pelvic lymphadenopathy. FREE FLUID: No free fluid. BLADDER: No bladder calculus. PELVIC VISCERA: Mild enlargement of the prostate gland. OSSEOUS STRUCTURES: No destructive bone lesions. CT/CT abdomen pelvis w IV con IMPRESSION: Multifocal pneumonia is suspected. Advise clinical correlation and short interval follow-up imaging. Hepatic steatosis.
--- NOTE | ~2023-05-18 | XR_ITS ---
EXAMINATION: XR CHEST CLINICAL INFORMATION: Covid infection. Pneumonia. COMPARISON: Previous chest x-ray and chest CT 05/18/2023 TECHNIQUE: Frontal view of the chest was obtained. FINDINGS: The cardiac and mediastinal contours are stable. The lung volumes are low. There are coarse lung markings. There is mixed peripheral nodular and interstitial disease similar to previous exams probably related to Covid infection. No pleural effusion or pneumothorax. Bony structures are normal. XR/XR chest 1V IMPRESSION: Low lung volumes. Mixed nodular and interstitial peripheral lung disease compatible with Covid infection.
--- NOTE | 2023-05-18 09:15 | MHC.EDTECH ---
put PT vitals in and put PT on heart monitor and changed him over
--- NOTE | 2023-05-18 09:29 | ECG_ITS ---
Test Reason : dispnea Blood Pressure : / mmHG Vent. Rate : 084 BPM Atrial Rate : 084 BPM P-R Int : 168 ms QRS Dur : 086 ms QT Int : 398 ms P-R-T Axes : 028 -37 -06 degrees QTc Int : 470 ms Normal sinus rhythm Left axis deviation Nonspecific T wave abnormality Prolonged QT Abnormal ECG No previous ECGs available Referred By: Darlyn Cohn Electronically Signed By:MARIKA EWING
--- NOTE | 2023-05-18 09:35 | ED.SOB ---
HPI - SOB/Dyspnea General Chief Complaint: Dyspnea Stated Complaint: SOB Time Seen by Provider: 05/18/23 09:14 Source: patient Mode of arrival: ambulatory Limitations: no limitations History of Present Illness HPI Narrative: 67 yo male with hx of anxiety, PTSD, asthma, kidney stones notes two weeks of shortness of breath initially at start had subjective fever now has sputum production weight loss of 8lbs, he has nausea no appetite and intermittent abdominal cramps. No diarrhea, no fevesr now. He tried to take a COVID test 2 weeks ago but he thinks he did it wrong. He just doesn't feel well and feels like he cannot breathe has an INH but doesn't really need it. he does not smoke, normal colonoscopy in last 5 to 7 years. no travel no procedures. He also c/o scaling itchy rash to face for 2 weeks but no known exposures MD elicited complaint: shortness of breath and cough Pertinent past history: asthma Onset (ago): week(s) (2) Context: recent illness Timing: progressively worsening Severity: moderate Exacerbating factors: exertion and coughing Relieving factors: rest Known history of: asthma Associated symptoms: cough, sputum production, nausea/vomiting and other (weight loss abdominal cramps) Related Data Home Medications Medication Instructions Recorded Confirmed atorvastatin 80 mg tablet 40 mg PO BEDTIME 10/11/22 10/11/22 fluticasone 250 mcg-salmeterol 50 1 inh inhalation BID 10/11/22 10/11/22 mcg/dose blistr powdr for inhalation (Wixela Inhub) lisinopril 2.5 mg tablet 2.5 mg PO DAILY 10/11/22 10/11/22 metformin 500 mg tablet 500 mg PO DAILY 10/11/22 10/11/22 multivitamin 1 tab PO DAILY 10/11/22 10/11/22 sertraline 100 mg tablet 100 mg PO BEDTIME 10/11/22 10/11/22 tiotropium bromide 2.5 2 puff inhalation DAILY 10/11/22 10/11/22 mcg/actuation mist for inhalation (Spiriva Respimat) trazodone 50 mg tablet 50 mg PO BEDTIME PRN Insomnia 10/11/22 10/11/22 Previous Rx's Medication Instructions Recorded phenazopyridine 100 mg tablet 100 mg PO TID PRN Spasm 4 days #12 10/12/22 (Pyridium) tabs sulfamethoxazole 800 1 tab PO BID 3 days #6 tabs 10/12/22 mg-trimethoprim 160 mg tablet (Bactrim DS) tamsulosin 0.4 mg capsule 0.4 mg PO BEDTIME 14 days #14 caps 10/12/22 tramadol 50 mg tablet 50 mg PO Q6H PRN pain (scale score 10/12/22 1-3) #8 tabs allopurinol 100 mg tablet 100 mg PO DAILY 90 days #90 tabs 10/27/22 pyridoxine (vitamin B6) 50 mg 50 mg PO DAILY 90 days #90 tabs 10/27/22 tablet Allergies Allergy/AdvReac Type Severity Reaction Status Date / Time No Known Allergies Allergy Verified 05/18/23 08:58 [No Known Allergies*] Review of Systems Review of Systems: Constitutional : No Fever, No Chills, pos fatigue, pos ma ENT/Mouth : No Hoarseness, No sore throat, No Rhinorrhea Eyes: No Redness, No Discharge, No Vision Changes Cardiovascular : No Chest Pain, positive SOB, positive Dyspnea on Exertion, No Edema Respiratory : positive Cough, No Sputum, positive Wheezing, Gastrointestinal : No Nausea, No Vomiting, No Diarrhea, No abdominal Pain Genitourinary : No Dysuria, No Hematuria Musculoskeletal : No joint pain, No Myalgias Skin : pos rash Neuro : No Weakness, No Numbness, No Headache Psych : No anxiety, depression Heme/Lymph: No Bruising, No Bleeding Endocrine : No Polyuria, No Polydipsia All other systems reviewed and are negative [facility] Past Medical History Attestation statement: The following information was validated with the patient. Source: old records reviewed Medical History Mood disorder Non-insulin dependent type 2 diabetes mellitus Mixed hyperlipidemia Essential hypertension Social History Social History Patient Tobacco Use Status: Former Tobacco user Advance Directives: No service: Yes Current occupational status: retired Physical Exam Vital Signs: Vital Signs: Last Vital Signs Temp 98.1 F 05/18/23 09:12 Pulse 84 05/18/23 12:14 Resp 18 05/18/23 12:14 BP 131/63 05/18/23 12:14 Pulse Ox 96 05/18/23 12:14 O2 Del Method Nasal Cannula 05/18/23 12:14 O2 Flow Rate 3 05/18/23 12:14 BMI result Body Mass Index 29.3 Appearance: Alert. Oriented X3. No acute distress. Eyes: Pupils equal, round and reactive to light. ENT: Pharynx normal. Neck: Normal inspection. Neck supple. CVS: Normal heart rate and rhythm. Pulses normal. Respiratory: No respiratory distress. Breath sounds diminished and coarse bilaterally but no wheezing Abdomen: Soft and nontender. Skin: Skin warm and dry. Normal skin color. Normal skin turgor. scaling dry red rash not cellulitic on nasolabial folds bilaterally Extremities: No lower extremity edema. No calf ttp Neuro: Oriented X 3. No motor deficit. No sensory deficit. Course Course Course Narrative: given CXR and complaints I am going to obtain CT scan of chest and abdomen Reevaluation(s) Reevaluation #1: at this time CT scan concerning for multifocal pneumonia I have ordered cultures lactic acid and empiric antibiotics - infection suspected 129pm. Medications Administered Discontinued Medications Generic Name Dose Route Start Last Admin Trade Name Freq PRN Reason Stop Dose Admin Albuterol/Ipratropium 3 ml 05/18/23 09:29 05/18/23 09:46 Albuterol/Iprat 2.5/0.5mg 3 Ml Ampul.Neb INHALE 05/18/23 09:30 3 ml ONCE ONE Administration Iohexol 100 ml 05/18/23 11:32 05/18/23 11:33 Iohexol 350 Mg/Ml 100 Ml Infus..Btl IV 05/18/23 11:33 85 ml ONCE ONE Administration Methylprednisolone Sodium Succinate 60 mg 05/18/23 10:32 05/18/23 11:08 Methylprednisolone Sod Succ 125 Mg/2 Ml Vial IVPUSH 05/18/23 10:33 60 mg ONCE ONE Administration Medical Decision Making Medical Decision Making MDM Narrative: 67 yo male with hx of anxiety, PTSD, asthma, kidney stones here with 2 weeks of dyspnea, cough, malaise and nausea and weight loss unspecified nasolabial rash dermatitis. At this time I have ordered labs, CXR for mass/pneumonia, he has no abdominal pain on exam and no vomiting / diarrhea / change in stools to suggest mass. I am ordering labs if LFTs or lipase derangement I might image. I suspect more viral vs chest mass vs pneumonia. I am odered neb and IV steroids given hx of asthma. ddimer for possible VTE. Differential Diagnosis Differential Diagnoses: The differential diagnosis associated with the presentation includes COVID, asthma, pneumonia, malignancy, VTE, rash - dermatitis - hypersensitivity, zinc deficiency Admission/Observation Consideration of admission/observation: Escalation of care including admission/observation considered 88% on RA - admit for IV antibiotics and further workup. Consult Healthcare Provider Management of the patient was discussed with: Hospitalist (admit patient) Lab Data MDM Lab Attestation statement: I reviewed the patient's lab results. 05/18/23 09:49 05/18/23 09:49 Labs: Lab Results 05/18/23 Range/Units 09:49 WBC 7.3 (4.8-10.8) X10*3/uL RBC 4.68 (4.60-5.80) X10*6/uL Hgb 13.6 L (14.0-18.0) g/dl Hct 40.0 L (42.0-52.0) % MCV 85.5 (80.0-98.0) fL MCH 29.1 (27.0-33.0) pg MCHC 34.0 (31.0-36.0) g/dl RDW 12.9 (11.0-16.0) % Plt Count 406 H D (160-400) X10*3/uL MPV 9.4 (9.4-12.4) fL Immature Gran % (Auto) 0.4 (0.0-0.4) % Neut % (Auto) 69.9 (45-73) % Lymph % (Auto) 17.6 L (20-40) % [place] % (Auto) 10.6 (2-11) % Eos % (Auto) 1.4 (0-4) % Baso % (Auto) 0.1 (0-2) % Lymph # (Auto) 1.3 (1.2-4.9) X10*3/uL [place] # (Auto) 0.8 (0.1-1.2) X10*3/uL Eos # (Auto) 0.1 (0.0-0.4) X10*3/uL Baso # (Auto) 0.0 (0.0-0.2) X10*3/uL Abs Immat Gran (auto) 0.03 (0.00-0.03) X10*3/uL Absolute Neuts (auto) 5.1 (2.0-8.3) x10*3/uL Absolute Nucleated RBC 0.000 (0.0-0.012) X10*3/uL Nucleated RBC % (auto) 0.0 (0.0-0.2) /100WBC D-Dimer High Sensitivty < 150 NG/ML Sodium 138 (135-145) mmol/L Potassium 3.5 D (3.3-5.1) mmol/L Chloride 105 (96-108) mmol/L Carbon Dioxide 26 (22-29) mmol/L Anion Gap 11 L (12-20) BUN 14 (9-16) mg/dL Creatinine 0.74 (0.5-1.4) mg/dL Estim Creat Clear Calc 107.4 Estimated GFR > 60 Random Glucose 237 H (60-115) mg/dL Calcium 9.7 D (8.4-10.2) mg/dL Magnesium 1.8 (1.6-2.6) mg/dL Total Bilirubin 0.8 (0.0-1.0) mg/dL Direct Bilirubin 0.3 (0.0-0.5) mg/dL AST 30 (5-37) U/L ALT 28 (0-40) U/L Alkaline Phosphatase 50 (39-117) U/L Troponin I High Sens 7.2 (<3.5-35.0) ng/L B-Natriuretic Peptide 10 (<100) pg/mL Total Protein 7.4 (6.5-8.0) g/dL Albumin 3.7 (3.5-5.0) g/dL Lipase 20 (8-78) U/L COVID-19 (JADEN) Negative (Negative) COVID-19 Clin Com See Note Independent Interpretation I performed an independent interpretation of an: EKG, Plain X-Ray (abnormal opacities) and CT Scan (multifocal pneumonia) Interpretation: Rate: 84 Rhythm: NSR Pearson: left Normal P waves. Normal ANISHA. Normal QRS complex. ST T wave : no VELIA, nonspecific lateral ST T wave chagnes qTC: normal prior studies: no acute ischemia The study has been interpreted contemporaneously by me. . Radiology Impression Discussion of test interpretation with radiology: I have reviewed the radiologist's reading. External Record Review External record reviewed: Office record Discharge Plan Discharge Clinical Impression: Multifocal pneumonia, Hypoxia Patient Disposition: Admitted As Inpatient Prescriptions: No Action multivitamin Tablet 1 tab PO DAILY metformin 500 mg Tablet 500 mg PO DAILY fluticasone propion-salmeterol [Wixela Inhub] 250-50 mcg/dose Blister With Device 1 inh INHALATION BID atorvastatin 80 mg Tablet 40 mg PO BEDTIME trazodone 50 mg Tablet 50 mg PO BEDTIME PRN (Reason: Insomnia) Rx Instructions: may repeat x1 dose sertraline 100 mg Tablet 100 mg PO BEDTIME lisinopril 2.5 mg Tablet 2.5 mg PO DAILY Spiriva Respimat 2.5 mcg/actuation Mist 2 puff INHALATION DAILY phenazopyridine [Pyridium] 100 mg tablet 100 mg PO TID PRN (Reason: Spasm) 4 Days Qty: 12 0RF sulfamethoxazole-trimethoprim [Bactrim DS] 800-160 mg tablet 1 tab PO BID 3 Days Qty: 6 0RF tramadol 50 mg tablet 50 mg PO Q6H PRN (Reason: pain (scale score 1-3)) Qty: 8 0RF tamsulosin 0.4 mg capsule 0.4 mg PO BEDTIME 14 Days Qty: 14 0RF pyridoxine (vitamin B6) 50 mg tablet 50 mg PO DAILY 90 Days Qty: 90 1RF allopurinol 100 mg tablet 100 mg PO DAILY 90 Days Qty: 90 1RF
[2023-05-18] MEDS: Albuterol/Iprat 2.5/0.5MG 3 ML AMPUL.NEB INHALE ×2 (09:46→20:05)
[2023-05-18 09:55] LABS: MANUAL DIFF FLAG NO
--- NOTE | 2023-05-18 10:00 | MHC.EDTECH ---
Vitals, EKG, and Labs were done on PT
[2023-05-18 10:03] LABS: Basophils Percent Auto 0.1 % (0-2); Eosinophils Absolute Auto 0.1 X10*3/uL (0.0-0.4); Eosinophils Percent Auto 1.4 % (0-4); Hemoglobin 13.6 g/dl (14.0-18.0); Imm Gran Abs Auto 0.03 X10*3/uL (0.00-0.03); Imm Gran Pct Auto 0.4 % (0.0-0.4); Lymphocytes Absolute Auto 1.3 X10*3/uL (1.2-4.9); Lymphocytes Percent Auto 17.6 % (20-40); Mean Corpuscular Hemoglobin 29.1 pg (27.0-33.0); Mean Corpuscular Volume 85.5 fL (80.0-98.0); Mean Platelet Volume 9.4 fL (9.4-12.4); Monocytes Absolute Auto 0.8 X10*3/uL (0.1-1.2); Monocytes Percent Auto 10.6 % (2-11); Neutrophils Absolute Auto 5.1 x10*3/uL (2.0-8.3); Neutrophils Percent Auto 69.9 % (45-73); Platelet Count 406 X10*3/uL (160-400); Red Blood Count 4.68 X10*6/uL (4.60-5.80); Red Cell Distribution Width 12.9 % (11.0-16.0); White Blood Count 7.3 X10*3/uL (4.8-10.8)
[2023-05-18 10:10] LABS: Alanine Aminotransferase 28 U/L (0-40); Albumin Level 3.7 g/dL (3.5-5.0); Alkaline Phosphatase 50 U/L (39-117); Anion Gap 11 (12-20); Aspartate Amino Transferase 30 U/L (5-37); Bilirubin Direct 0.3 mg/dL (0.0-0.5); Bilirubin Total 0.8 mg/dL (0.0-1.0); Blood Urea Nitrogen 14 mg/dL (9-16); Calcium 9.7 mg/dL (8.4-10.2); Carbon Dioxide 26 mmol/L (22-29); Chloride 105 mmol/L (96-108); Creatinine Clr Calc Pharmacy 107.4; Estimated Glomerular Filt Rate > 60; Glucose Random 237 mg/dL (60-115); Lipase 20 U/L (8-78); Magnesium 1.8 mg/dL (1.6-2.6); Potassium 3.5 mmol/L (3.3-5.1); Sodium 138 mmol/L (135-145); Total Protein 7.4 g/dL (6.5-8.0)
[2023-05-18 10:13] LABS: D Dimer High Sensitivity < 150 NG/ML
[2023-05-18 10:16] LABS: COVID-19 Test Negative (Negative); IDNOW Serial# BCCEAD1C
[2023-05-18 10:17] LABS: Troponin-I High Sensitivity 7.2 ng/L (<3.5-35.0)
[2023-05-18] MEDS: methylPREDNISolone Sod Succ 125 MG/2 ML VIAL 60 MG IVPUSH (11:08)
[2023-05-18] MEDS: iohexoL 350 MG/ML 100 ML INFUS..BTL IV (11:33)
[2023-05-18 12:02] LABS: B Type Natriuretic Peptide 10 pg/mL (<100)
[2023-05-18] MEDS: cefTRIAXone sodium 1 GM in 0.9 % Sodium Chloride 50 ML IV (14:13)
[2023-05-18 14:19] LABS: Lactic Acid 1.6 mmol/L (0.5-2.0)
[2023-05-18 14:21] LABS: Appearance Urine Clear; Color Urine Yellow; Glucose Urine UA >=1000 mg/dL (Negative); Leukocyte Esterase Urine Negative (Negative); Nitrite Urine Negative (Negative); PH 6.5 (5.0-9.0); Specific Gravity - Urine >= 1.030 (1.005-1.025); UMIC TRIGGER UACC YES; Urine Blood Negative (Negative); Urine Ketones Negative (Negative); Urine Protein Negative (Neg-Trace)
[2023-05-18 14:26] LABS: Bacteria Urine None Seen (None Seen); Hyaline Casts Urine 0-2 /LPF (0-2); RBC Urine 0-2 /HPF (0-2); Squamous Epithelial Cell Urine 0-2 /HPF (0-2); WBC Urine 0-5 /HPF (0-5)
--- NOTE | 2023-05-18 14:28 | MHC.EDTECH ---
jimmy cultures and lactic, did [employer] swab and sent urine
[2023-05-18] MEDS: Azithromycin 500 MG in 0.9 % Sodium Chloride 250 ML 125 MG IV (15:12)
--- NOTE | 2023-05-18 15:17 | PHA.MEDREC ---
Pharmacy Consult ? Medication Reconciliation Pharmacy has completed the medication reconciliation. Metformin increased to 1000mg. Sertraline discontinued and lexapro started stacia
[2023-05-18 16:03] LABS: Adenovirus PCR Not Detected (Not Detect.); Bordetella parapertussis PCR Not Detected (Not Detect.); Bordetella pertussis PCR Not Detected (Not Detect.); Chlamydia pneumoniae PCR Not Detected (Not Detect.); Coronavirus 229E PCR Not Detected (Not Detect.); Coronavirus HKU1 PCR Not Detected (Not Detect.); Coronavirus NL63 PCR Not Detected (Not Detect.); Coronavirus OC43 PCR Not Detected (Not Detect.)
[2023-05-18 16:04] LABS: Human metapneumovirus PCR Not Detected (Not Detect.); Influenza A PCR Not Detected (Not Detect.); Influenza B PCR Not Detected (Not Detect.); Mycoplasma pneumoniae PCR Not Detected (Not Detect.); Parainfluenza 1 PCR Not Detected (Not Detect.); Parainfluenza 2 PCR Not Detected (Not Detect.); Parainfluenza 3 PCR Not Detected (Not Detect.); Parainfluenza 4 PCR Not Detected (Not Detect.); RSV PCR Not Detected (Not Detect.); Rhino/Enterovirus PCR Not Detected (Not Detect.); SARS-CoV-2 PCR Detected (Not Detect.)
--- NOTE | 2023-05-18 16:21 | PC.NURSE ---
Pt is resting comfortably in fowlers position, pt has nonlabored resps @ 16 with clear bronchail and vesicular ls. pt is nsr on monitor with wpd skin. pt is awaiting admission and is updated as to plan of care.
--- NOTE | 2023-05-18 17:49 | P.HPHOSP_ITS ---
History of Present Illness Date of Service: 05/18/23 Attending physician on admission: Simon Ivan Chief Complaint: SOB, generalized weakness Pt is a 67-year-old male with a PMH significant for?non-insulin dependent diabetes type 2, HTN, HLD, and mild intermittent asthma who presents to the ED with?increasing shortness of breath and generalized weakness. Patient states that 10 days ago he felt like he had the flu with body aches and subjective fever. A few days later patient then developed shortness of breath and cough occasionally productive of yellowish phlegm. Patient denies nausea, vomiting but states that his stomach felt crampy and he did not feel like eating. Endorses a 10 lb weight loss in the last 10 days. Patient did not present earlier to the ED because he says he is ?stubborn? and thought his symptoms would be resolved by now. Patient denies chest pain/pressure, palpitations. Patient with a remote occasional history of smoking but quit more than 10 years ago. Has a diagnosis of mild intermittent asthma, states he uses his rescue inhaler maybe once or twice a month. In the ED patient was afebrile but tachycardic up to 103, tachypneic up to 28, and setting as low as 88% O2 on RA. Labs were significant for H&H of 13.6/40.0. No leukocytosis. D-dimer negative. Electrolytes WNL hepatic function WNL. Renal function WNL. BNP negative. Troponin 7.2. UA negative for UTI. Patient also tested positive for COVID. CXR showed new bilateral reticulonodular opacities and thickened interlobular septae. CT?of chest and abdomen and pelvis suggestive of multifocal pneumonia, also showed hepatic steatosis. EKG demonstrated normal sinus rhythm with nonspecific T-wave inversion in lead II and prolonged QTc of 470. Pt was treated with DuoNeb, Solu-Medrol 60 mg IV push, ceftriaxone, and azithromycin. Pt will be admitted to the hospital and treated for acute hypoxic respiratory failure in the setting of community-acquired pneumonia. Review of Systems 2 Review of Systems: Fever, chills, myalgias Shortness of breath Productive cough Generalized fatigue Anorexia Denies chest pain/pressure, palpitations No nausea, vomiting, abdominal pain Yes all other systems are reviewed and are negative [facility] Medical History Mood disorder Non-insulin dependent type 2 diabetes mellitus Mixed hyperlipidemia Essential hypertension Social History Patient Tobacco Use Status: Former Tobacco user Smoked in Last 30 Days: No Use of substances other than those prescribed or required for medical reasons: No Advance Directives: No service: Yes Current occupational status: retired Meds Allergies Allergy/AdvReac Type Severity Reaction Status Date / Time No Known Allergies Allergy Verified 05/18/23 08:58 [No Known Allergies*] Home Medications Medication Instructions Recorded Confirmed Last Taken Type atorvastatin 80 mg tablet 40 mg PO BEDTIME 10/11/22 05/18/23 10/10/22 History fluticasone 250 mcg-salmeterol 50 1 inh inhalation BID 10/11/22 05/18/23 10/11/22 History mcg/dose blistr powdr for inhalation (Wixela Inhub) lisinopril 2.5 mg tablet 2.5 mg PO DAILY 10/11/22 05/18/23 10/11/22 History metformin 500 mg tablet 1,000 mg PO DAILY 10/11/22 05/18/23 10/11/22 History multivitamin 1 tab PO DAILY 10/11/22 05/18/23 10/11/22 History tiotropium bromide 2.5 2 puff inhalation DAILY 10/11/22 05/18/23 10/11/22 History mcg/actuation mist for inhalation (Spiriva Respimat) trazodone 50 mg tablet 50 mg PO BEDTIME PRN Insomnia 10/11/22 05/18/23 10/10/22 History escitalopram oxalate 5 mg tablet 5 mg PO DAILY 05/18/23 05/18/23 Unknown History Physical Exam 2 Vital Signs and Narrative: Vital Signs: Last Vital Signs Temp 98.1 F 05/18/23 09:12 Pulse 84 05/18/23 17:27 Resp 19 05/18/23 17:27 BP 113/55 L 05/18/23 17:27 Pulse Ox 94 05/18/23 17:27 O2 Del Method Room Air 05/18/23 17:27 O2 Flow Rate 3 05/18/23 14:05 BMI result Body Mass Index 29.3 Constitutional: Alert, in no acute distress. Mental Status: Oriented to person, place and time. Eyes: Pupils are equal, round, and reactive to light. Ear, Nose, and Throat: Oropharynx clear, mucous membranes moist. Ears and nose without deformities. Trachea midline. Respiratory: Mild wheezing bilaterally. Able to talk in complete sentences, but with extra work of breathing. Cardiovascular: S1, S2 regular. No murmurs, rubs, or gallops. Gastrointestinal: Abdomen soft, non-tender, non-distended. Normal bowel sounds. Neurologic: Cranial nerves II-XII are grossly intact bilaterally. No focal neurological deficits. Moves all extremities spontaneously. Skin: No rashes or lesions noted. Musculoskeletal: No cyanosis or clubbing. Extremities: No edema. Psychiatric: Normal mood and affect. Results Labs 05/18/23 09:49 05/18/23 09:49 Labs: Laboratory Results - last 24 hr 05/18/23 05/18/23 05/18/23 09:49 13:54 13:56 MCV 85.5 MCH 29.1 MCHC 34.0 RDW 12.9 Plt Count 406 H D MPV 9.4 Immature Gran % (Auto) 0.4 Neut % (Auto) 69.9 Lymph % (Auto) 17.6 L [place] % (Auto) 10.6 Eos % (Auto) 1.4 Baso % (Auto) 0.1 Lymph # (Auto) 1.3 [place] # (Auto) 0.8 Eos # (Auto) 0.1 Baso # (Auto) 0.0 Abs Immat Gran (auto) 0.03 Absolute Neuts (auto) 5.1 Absolute Nucleated RBC 0.000 Nucleated RBC % (auto) 0.0 D-Dimer High Sensitivty < 150 Anion Gap 11 L Estim Creat Clear Calc 107.4 Estimated GFR > 60 Random Glucose 237 H Lactic Acid 1.6 Calcium 9.7 D Magnesium 1.8 Total Bilirubin 0.8 Direct Bilirubin 0.3 AST 30 ALT 28 Alkaline Phosphatase 50 B-Natriuretic Peptide 10 Total Protein 7.4 Albumin 3.7 Lipase 20 Urine Color Yellow Urine Appearance Clear Urine pH 6.5 Ur Specific [place] >= 1.030 H Urine Protein Negative Urine Glucose (UA) >=1000 H Urine Ketones Negative Urine Blood Negative Urine Nitrite Negative Ur Leukocyte Esterase Negative Urine RBC 0-2 Urine WBC 0-5 Ur Squamous Epith Cells 0-2 Urine Bacteria None Seen Hyaline Casts 0-2 Respiratory Panel Sol[place] Adenovirus (Rapid PCR) B.pert (TEM-PCR) B.parapertussis DNA PCR C. pneumoniae DNA (PCR) Coronavirus OC43 (PCR) Coronavirus HKU1 (PCR) Coronavirus 229E (PCR) COVID-19 (JADEN) Negative COVID-19 Clin Com See Note Coronavirus NL63 (PCR) Human Metapneumovir PCR Influenza A (RT-PCR) Influenza B (RT-PCR) M. pneumoniae (PCR) Parainfluenza 1 (PCR) Parainfluenza 2 (PCR) Parainfluenza 3 (PCR) Parainfluenza 4 (PCR) RSV (PCR) Entero/Rhino (PCR) SARS-CoV-2 RNA (RT-PCR) 05/18/23 14:24 MCV MCH MCHC RDW Plt Count MPV Immature Gran % (Auto) Neut % (Auto) Lymph % (Auto) [place] % (Auto) Eos % (Auto) Baso % (Auto) Lymph # (Auto) [place] # (Auto) Eos # (Auto) Baso # (Auto) Abs Immat Gran (auto) Absolute Neuts (auto) Absolute Nucleated RBC Nucleated RBC % (auto) D-Dimer High Sensitivty Anion Gap Estim Creat Clear Calc Estimated GFR Random Glucose Lactic Acid Calcium Magnesium Total Bilirubin Direct Bilirubin AST ALT Alkaline Phosphatase B-Natriuretic Peptide Total Protein Albumin Lipase Urine Color Urine Appearance Urine pH Ur Specific [place] Urine Protein Urine Glucose (UA) Urine Ketones Urine Blood Urine Nitrite Ur Leukocyte Esterase Urine RBC Urine WBC Ur Squamous Epith Cells Urine Bacteria Hyaline Casts Respiratory Panel Soliz See Note Adenovirus (Rapid PCR) Not Detected B.pert (TEM-PCR) Not Detected B.parapertussis DNA PCR Not Detected C. pneumoniae DNA (PCR) Not Detected Coronavirus OC43 (PCR) Not Detected Coronavirus HKU1 (PCR) Not Detected Coronavirus 229E (PCR) Not Detected COVID-19 (JADEN) COVID-19 Clin Com Coronavirus NL63 (PCR) Not Detected Human Metapneumovir PCR Not Detected Influenza A (RT-PCR) Not Detected Influenza B (RT-PCR) Not Detected M. pneumoniae (PCR) Not Detected Parainfluenza 1 (PCR) Not Detected Parainfluenza 2 (PCR) Not Detected Parainfluenza 3 (PCR) Not Detected Parainfluenza 4 (PCR) Not Detected RSV (PCR) Not Detected Entero/Rhino (PCR) Not Detected SARS-CoV-2 RNA (RT-PCR) Detected A Imaging Radiologist's Impressions: Impressions Chest X-Ray 05/18/23 09:40 IMPRESSION: New bilateral reticulonodular opacities, and thickened interlobular septae right slightly worse than left. Differential considerations include congestive failure, bilateral pneumonia, granulomatous disease and lymphangitic spread of tumor, amongst other etiologies. Follow-up is recommended to confirm clearing. Chest CT with contrast might be of benefit if symptoms and findings persist. Abdomen/Pelvis CT 05/18/23 11:36 IMPRESSION: Multifocal pneumonia is suspected. Advise clinical correlation and short interval follow-up imaging. Hepatic steatosis. Chest CT 05/18/23 11:36 IMPRESSION: Multifocal pneumonia is suspected. Advise clinical correlation and short interval follow-up imaging. Hepatic steatosis. Assessment and Plan (1) Hypoxia: Status: Acute (2) Multifocal pneumonia: Status: Acute (3) COVID: Status: Acute Plan Pt is a 67-year-old male with a PMH significant for?non-insulin dependent diabetes type 2, HTN, HLD, and mild intermittent asthma who presents to the ED with?increasing shortness of breath and generalized weakness. Pt will be admitted to the hospital and treated for acute hypoxic respiratory failure in the setting of community-acquired multifocal pneumonia. Acute hypoxic respiratory failure in the setting of community-acquired multi focal pneumonia and COVID infection Patient with increased SOB, productive cough, generalized weakness, anorexia x10 days Patient satting as low as 88% on RA, not on home O2, chest CT suggestive of multifocal pneumonia Patient tested positive for COVID-19 Meets sepsis criteria: Pneumonia, tachycardia, tachypnea; lactic acid WNL at 1.6 Will cover with IV antibiotics: Ceftriaxone, azithromycin, started 05/18/2023 Dexamethasone 6 mg DuoNebs Titrate supplemental O2 >92, wean as tolerated Non-insulin dependent diabetes type [address] on sliding scale insulin Diabetic diet HTN Acceptable control on current therapy Continue home meds HLD Continue statin Full Code Attending:?Dr. Ivan DVT Prophylaxis: Lovenox Pt will require a hospitalization of at least two nights for treatment of?acute hypoxic respiratory failure in the setting of multifocal pneumonia and COVID infection. Time Spent With Patient Time: Total time managing care of this patient today ____ minutes. Quality Stroke Does the patient have a stroke diagnosis?: No VTE Prior VTE?: No VTE Risk Level:: Medical - moderate - high VTE Device Contraindication: Treatment Not Indicated VTE Drug Contraindication: N/A - Med Ordered
[2023-05-18] MEDS: Enoxaparin Sodium 40 MG/0.4 ML SYRINGE SUBCUT (21:24)
[2023-05-18] MEDS: Atorvastatin Calcium 40 MG TABLET PO (22:43)
[2023-05-18 22:49] LABS: Glucose, Whole Blood 433 mg/dL (60-115)
[2023-05-18 22:49] LABS: Glucose, Whole Blood 407 mg/dL (60-115)
[2023-05-18] MEDS: Insulin Lispro 100 UNIT/ML 3 ML VIAL SUBCUT (22:54)
[2023-05-19] VITALS (7 sets, daily range): BP systolic 140–144; BP diastolic 66–75; PULSE 67–84; RESP 15–18; TEMP 36.2–36.7; O2SAT 92–94
[2023-05-19 07:43] LABS: Glucose, Whole Blood 272 mg/dL (60-115)
[2023-05-19] MEDS: Albuterol/Iprat 2.5/0.5MG 3 ML AMPUL.NEB INHALE ×3 (08:15→19:42)
[2023-05-19] MEDS: dexAMETHasone sod phosphate 4 MG/ML VIAL 6 MG IVPUSH (08:23)
[2023-05-19] MEDS: Pyridoxine HCl (Vitamin B6) 50 MG TABLET PO (08:23)
[2023-05-19] MEDS: Escitalopram Oxalate 5 MG TABLET PO (08:23)
[2023-05-19] MEDS: Multivitamin TABLET 1 TAB PO (08:23)
[2023-05-19] MEDS: lisinopriL 2.5 MG TABLET PO (08:23)
[2023-05-19] MEDS: Insulin Lispro 100 UNIT/ML 3 ML VIAL SUBCUT ×4 (08:24→21:16)
[2023-05-19] MEDS: 0.9 % Sodium Chloride Flush 3 ML SYRINGE IVFLUSH ×2 (08:25→21:17)
--- NOTE | 2023-05-19 09:53 | MHC.CM.PN ---
PT ADMITTED, COVID-19 POSITIVE. 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
[2023-05-19 11:40] LABS: Glucose, Whole Blood 248 mg/dL (60-115)
[2023-05-19] MEDS: cefTRIAXone sodium 1 GM in 0.9 % Sodium Chloride 50 ML IV (14:47)
--- NOTE | 2023-05-19 15:28 | P.PNIM_ITS ---
Subjective Subjective Date of Service: 05/19/23 Interval History: SOB, generalized weakness Review of Systems sob seems similar to yesterday has cough no fevers Physical Exam 2 Vital Signs: Vital Signs: Last Vital Signs Temp 97.6 F 05/19/23 07:51 Pulse 70 05/19/23 12:17 Resp 18 05/19/23 12:17 BP 144/75 H 05/19/23 07:51 Pulse Ox 93 05/19/23 07:51 O2 Del Method Nasal Cannula 05/19/23 07:51 O2 Flow Rate 2 05/19/23 07:51 BMI result Body Mass Index 29.3 Appearance: Alert.? Oriented X3.? sob. cvs: rrr, [id number] , no murmur res: air entry similar to yesterday,has mild wheezin abd: no rebound or guarding ,nt, bs present. ext pulses present , no cyanosis. neuro: axo3 , nonfocal. Objective Data Active Medications Acetaminophen (Acetaminophen 325 Mg Tablet) 650 mg PO Q6H PRN PRN Reason: Pain, Mild (Pain Scale 1-3) Albuterol/Ipratropium (Albuterol/Iprat 2.5/0.5mg 3 Ml Ampul.Neb) 3 ml INHALE RQ4H WHILE AWAKE [facility] Last Admin: 05/19/23 12:17 Dose: 3 ml Documented By: CLAUDETTE Atorvastatin Calcium (Atorvastatin Calcium 40 Mg Tablet) 40 mg PO BEDTIME [facility] Last Admin: 05/18/23 22:43 Dose: 40 mg Documented By: CARRIE Dexamethasone Sodium Phosphate (Dexamethasone Sod Phosphate 4 Mg/Ml Vial) 6 mg IVPUSH DAILY [facility] Last Admin: 05/19/23 08:23 Dose: 6 mg Documented By: ADI Dextrose (Dextrose 50 % 25 Gm/50 Ml Syringe) 25 gm IVPUSH Q15M PRN; Protocol PRN Reason: per Hypoglycemia Standing Ord. Docusate Sodium (Docusate Sodium 100 Mg Capsule) 100 mg PO DAILY PRN PRN Reason: Constipation Enoxaparin Sodium (Enoxaparin Sodium 40 Mg/0.4 Ml Syringe) 40 mg SUBCUT Q24H [facility] Last Admin: 05/18/23 21:24 Dose: 40 mg Documented By: MELINDA Escitalopram Oxalate (Escitalopram Oxalate 5 Mg Tablet) 5 mg PO DAILY [facility] Last Admin: 05/19/23 08:23 Dose: 5 mg Documented By: ADI Fluticasone/Vilanterol (Fluticasone/Vilanterol 100/25 Blst.W.Dev) 1 puff INHALE RDAILY [facility] Last Admin: 05/19/23 08:10 Dose: Not Given Documented By: CLAUDETTE Non-Admin Reason: pharmacy called Glucose (Glucose Gel 15 Gm Gel..Gram.) 15 gm PO Q15M PRN; Protocol PRN Reason: per Hypoglycemia Standing Ord. Ceftriaxone Sodium 1 gm/ (Sodium Chloride) 50 mls @ 100 mls/hr IV Q24H [facility] Last Admin: 05/19/23 14:47 Dose: 100 mls/hr Documented By: ADI Azithromycin 500 mg/ Sodium (Chloride) 250 mls @ 125 mls/hr IV Q24H [facility] Insulin Human Lispro (Insulin Lispro 100 Unit/Ml 3 Ml Vial) 0 unit SUBCUT QIDACHS [facility]; Protocol Last Admin: 05/19/23 12:38 Dose: 4 unit Documented By: ADI Lisinopril (Lisinopril 2.5 Mg Tablet) 2.5 mg PO DAILY [facility]; Protocol Last Admin: 05/19/23 08:23 Dose: 2.5 mg Documented By: ADI Multivitamins/Vitamin C (Multivitamin Tablet) 1 tab PO DAILY [facility] Last Admin: 05/19/23 08:23 Dose: 1 tab Documented By: ADI Pyridoxine HCl (Pyridoxine Hcl (Vitamin B6) 50 Mg Tablet) 50 mg PO DAILY [facility] Last Admin: 05/19/23 08:23 Dose: 50 mg Documented By: ADI Sodium Chloride (0.9 % Sodium Chloride Flush 3 Ml Syringe) 3 ml IVFLUSH QSHIFT [facility] Last Admin: 05/19/23 08:25 Dose: 3 ml Documented By: ADI Tiotropium [place] (Tiotropium [place] 2.5 Mcg Inhaler) 2 puff INHALE RDAILY [facility] Last Admin: 05/19/23 08:10 Dose: Not Given Documented By: CLAUDETTE Non-Admin Reason: pharmacy called Trazodone HCl (Trazodone Hcl 50 Mg Tablet) 50 mg PO BEDTIME PRN PRN Reason: Insomnia Labs 05/18/23 09:49 05/18/23 09:49 Labs: Laboratory Results - last 24 hr 05/18/23 05/18/23 05/18/23 14:24 22:39 22:42 POC Glucose 433 H* 407 H* Respiratory Panel Soliz See Note Adenovirus (Rapid PCR) Not Detected B.pert (TEM-PCR) Not Detected B.parapertussis DNA PCR Not Detected C. pneumoniae DNA (PCR) Not Detected Coronavirus OC43 (PCR) Not Detected Coronavirus HKU1 (PCR) Not Detected Coronavirus 229E (PCR) Not Detected Coronavirus NL63 (PCR) Not Detected Human Metapneumovir PCR Not Detected Influenza A (RT-PCR) Not Detected Influenza B (RT-PCR) Not Detected M. pneumoniae (PCR) Not Detected Parainfluenza 1 (PCR) Not Detected Parainfluenza 2 (PCR) Not Detected Parainfluenza 3 (PCR) Not Detected Parainfluenza 4 (PCR) Not Detected RSV (PCR) Not Detected Entero/Rhino (PCR) Not Detected SARS-CoV-2 RNA (RT-PCR) Detected A 05/19/23 05/19/23 07:39 11:37 POC Glucose 272 H 248 H Respiratory Panel Soliz Adenovirus (Rapid PCR) B.pert (TEM-PCR) B.parapertussis DNA PCR C. pneumoniae DNA (PCR) Coronavirus OC43 (PCR) Coronavirus HKU1 (PCR) Coronavirus 229E (PCR) Coronavirus NL63 (PCR) Human Metapneumovir PCR Influenza A (RT-PCR) Influenza B (RT-PCR) M. pneumoniae (PCR) Parainfluenza 1 (PCR) Parainfluenza 2 (PCR) Parainfluenza 3 (PCR) Parainfluenza 4 (PCR) RSV (PCR) Entero/Rhino (PCR) SARS-CoV-2 RNA (RT-PCR) Assessment and Plan (1) COVID: Status: Acute (2) Hypoxia: Status: Acute (3) Multifocal pneumonia: Status: Acute Plan 67-year-old male with a PMH significant for?non-insulin dependent diabetes type 2, HTN, HLD, and mild intermittent asthma who presents to the ED with?increasing shortness of breath and generalized weakness. Pt will be admitted to the hospital and treated for acute hypoxic respiratory failure in the setting of community-acquired multifocal pneumonia. Acute hypoxic respiratory failure in the setting of community-acquired multi focal pneumonia and COVID infection Patient with increased SOB, productive cough, generalized weakness, anorexia x10 days positive for COVID-19 Patient satting as low as 88% on RA, not on home O2, chest CT suggestive of multifocal pneumonia tachycardia, tachypnea improving ; lactic acid WNL at 1.6 continue IV antibiotics: Ceftriaxone, azithromycin, started 05/18/2023,Dexamethasone 6 mg,DuoNebs,Titrate supplemental O2 >92, wean as tolerated Non-insulin dependent diabetes type 2 with hyperglycemia (possible steriod related) Hold home meds add Hba1c levels Place on sliding scale insulin Diabetic diet HTN Acceptable control on current therapy Continue home meds HLD Continue statin Full Code DVT Prophylaxis: Lovenox ongoing continued hospitalization need -multifocal pneumonia and COVID infection- need iv antibiotics ,steriods ,also repiratory sttaus not optimal yet, blood cultures also pending. Time Spent With Patient Time: Total time managing care of this patient today ____ minutes. Quality Stroke Does the patient have a stroke diagnosis?: No VTE Prior VTE?: No VTE Risk Level:: Medical - moderate - high VTE Device Contraindication: Treatment Not Indicated VTE Drug Contraindication: N/A - Med Ordered
[2023-05-19] MEDS: Azithromycin 500 MG in 0.9 % Sodium Chloride 250 ML 125 MG IV (15:36)
[2023-05-19 15:42] LABS: Glucose, Whole Blood 469 mg/dL (60-115)
[2023-05-19 15:42] LABS: Glucose, Whole Blood 489 mg/dL (60-115)
[2023-05-19 16:44] LABS: Estimated Average Glucose 226 mg/dL; Hemoglobin A1c % 9.5 % (<6.0)
[2023-05-19 17:15] LABS: Anion Gap 14 (12-20); Blood Urea Nitrogen 18 mg/dL (9-16); Calcium 9.8 mg/dL (8.4-10.2); Carbon Dioxide 21 mmol/L (22-29); Chloride 105 mmol/L (96-108); Creatinine Clr Calc Pharmacy 69.1; Estimated Glomerular Filt Rate > 60; Glucose Random 512 mg/dL (60-115); Potassium 4.4 mmol/L (3.3-5.1); Sodium 136 mmol/L (135-145)
[2023-05-19] MEDS: Enoxaparin Sodium 40 MG/0.4 ML SYRINGE SUBCUT (18:31)
[2023-05-19 18:50] LABS: Glucose, Whole Blood 395 mg/dL (60-115)
[2023-05-19] MEDS: Insulin Glargine,Hum.rec.anlog 100 UNIT/ML 10 ML VIAL SUBCUT (20:17)
[2023-05-19] MEDS: Atorvastatin Calcium 40 MG TABLET PO (21:16)
--- NOTE | 2023-05-19 22:51 | W.PM.IDCN ---
History of Present Illness Data of Consult Service Date: 05/19/23 Requesting physician: Simon Ivan Primary Care Provider: Frank JOLLY Reason for consult: shortness of breath He presents with two weeks shortness of breath and now some sputum production. He is 88% on RA. He has groundglass all five lobes lung. He has positive COVID test. Review of Systems Review of Systems: Yes all other systems are reviewed and are negative PMFSH Past Medical History Medical History Mood disorder Non-insulin dependent type 2 diabetes mellitus Mixed hyperlipidemia Essential hypertension Family History Family history: reviewed and not pertinent Social History Social History Household Members: None Housing: Apartment Do you presently have visiting nurse or other home services: No Patient Tobacco Use Status: Former Tobacco user Smoked in Last 30 Days: No Use of substances other than those prescribed or required for medical reasons: No Currently Displaying Signs/Symptoms of Drug Intoxication Withdrawal: No Have you been hit, kicked, punched, or otherwise hurt by someone within the past year? If so, by whom?: No Do you feel safe in your current relationship?: Yes Is there a partner from a previous relationship who is making you feel unsafe now?: No Are you made to feel afraid or neglected: No Advance Directives: No Do you have thoughts of harming others: None Do you have a plan to hurt others: No Plan Recently lost weight without trying: Yes How much weight loss: 2-13 pounds Eating poorly because of decreased appetite: Yes Nutrition screen score: 4 Nutrition Risks: Poor intake 0-25% >4 days Poor oral hygiene: No service: Yes Current occupational status: retired [employer] Allergies Allergy/AdvReac Type Severity Reaction Status Date / Time No Known Allergies Allergy Verified 05/18/23 08:58 [No Known Allergies*] Active Medications: Current Medications Acetaminophen (Acetaminophen 325 Mg Tablet) 650 mg PO Q6H PRN PRN Reason: Pain, Mild (Pain Scale 1-3) Albuterol/Ipratropium (Albuterol/Iprat 2.5/0.5mg 3 Ml Ampul.Neb) 3 ml INHALE RQ4H WHILE AWAKE [facility] Last Admin: 05/19/23 19:42 Dose: 3 ml Atorvastatin Calcium (Atorvastatin Calcium 40 Mg Tablet) 40 mg PO BEDTIME [facility] Last Admin: 05/19/23 21:16 Dose: 40 mg Dexamethasone Sodium Phosphate (Dexamethasone Sod Phosphate 4 Mg/Ml Vial) 6 mg IVPUSH DAILY [facility] Last Admin: 05/19/23 08:23 Dose: 6 mg Dextrose (Dextrose 50 % 25 Gm/50 Ml Syringe) 25 gm IVPUSH Q15M PRN; Protocol PRN Reason: per Hypoglycemia Standing Ord. Docusate Sodium (Docusate Sodium 100 Mg Capsule) 100 mg PO DAILY PRN PRN Reason: Constipation Enoxaparin Sodium (Enoxaparin Sodium 40 Mg/0.4 Ml Syringe) 40 mg SUBCUT Q24H [facility] Last Admin: 05/19/23 18:31 Dose: 40 mg Escitalopram Oxalate (Escitalopram Oxalate 5 Mg Tablet) 5 mg PO DAILY [facility] Last Admin: 05/19/23 08:23 Dose: 5 mg Fluticasone/Vilanterol (Fluticasone/Vilanterol 100/25 Blst.W.Dev) 1 puff INHALE RDAILY [facility] Last Admin: 05/19/23 08:10 Dose: Not Given Glucose (Glucose Gel 15 Gm Gel..Gram.) 15 gm PO Q15M PRN; Protocol PRN Reason: per Hypoglycemia Standing Ord. Ceftriaxone Sodium 1 gm/ (Sodium Chloride) 50 mls @ 100 mls/hr IV Q24H [facility] Last Infusion: 05/19/23 15:34 Dose: Infused Azithromycin 500 mg/ Sodium (Chloride) 250 mls @ 125 mls/hr IV Q24H [facility] Last Infusion: 05/19/23 17:43 Dose: Infused Insulin Human Lispro (Insulin Lispro 100 Unit/Ml 3 Ml Vial) 0 unit SUBCUT QIDACHS [facility]; Protocol Last Admin: 05/19/23 21:16 Dose: 16 unit Lisinopril (Lisinopril 2.5 Mg Tablet) 2.5 mg PO DAILY [facility]; Protocol Last Admin: 05/19/23 08:23 Dose: 2.5 mg Multivitamins/Vitamin C (Multivitamin Tablet) 1 tab PO DAILY [facility] Last Admin: 05/19/23 08:23 Dose: 1 tab Pyridoxine HCl (Pyridoxine Hcl (Vitamin B6) 50 Mg Tablet) 50 mg PO DAILY [facility] Last Admin: 05/19/23 08:23 Dose: 50 mg Sodium Chloride (0.9 % Sodium Chloride Flush 3 Ml Syringe) 3 ml IVFLUSH QSHIFT [facility] Last Admin: 05/19/23 21:17 Dose: 3 ml Tiotropium [place] (Tiotropium [place] 2.5 Mcg Inhaler) 2 puff INHALE RDAILY [facility] Last Admin: 05/19/23 08:10 Dose: Not Given Trazodone HCl (Trazodone Hcl 50 Mg Tablet) 50 mg PO BEDTIME PRN PRN Reason: Insomnia Home Medications Medication Instructions Recorded Confirmed Last Taken Type atorvastatin 80 mg tablet 40 mg PO BEDTIME 10/11/22 05/18/23 10/10/22 History fluticasone 250 mcg-salmeterol 50 1 inh inhalation BID 10/11/22 05/18/23 10/11/22 History mcg/dose blistr powdr for inhalation (Wixela Inhub) lisinopril 2.5 mg tablet 2.5 mg PO DAILY 10/11/22 05/18/23 10/11/22 History metformin 500 mg tablet 1,000 mg PO DAILY 10/11/22 05/18/23 10/11/22 History multivitamin 1 tab PO DAILY 10/11/22 05/18/23 10/11/22 History tiotropium bromide 2.5 2 puff inhalation DAILY 10/11/22 05/18/23 10/11/22 History mcg/actuation mist for inhalation (Spiriva Respimat) trazodone 50 mg tablet 50 mg PO BEDTIME PRN Insomnia 10/11/22 05/18/23 10/10/22 History escitalopram oxalate 5 mg tablet 5 mg PO DAILY 05/18/23 05/18/23 Unknown History Physical Exam Vital Signs: Vital Signs: Last Vital Signs Temp 97.2 F 05/19/23 19:30 Pulse 83 05/19/23 19:42 Resp 15 05/19/23 19:42 BP 144/66 H 05/19/23 19:30 Pulse Ox 93 05/19/23 19:30 O2 Del Method Room Air 05/19/23 19:30 O2 Flow Rate 2 05/19/23 15:32 BMI result Body Mass Index 29.3 Const: General: cooperative HEENT: Head: Yes normal to inspection Resp: Effort & Inspection: normal respiratory effort Cardio: Rate: regular rate Rhythm: regular rhythm GI: Inspection: Yes normal to inspection Results Labs 05/18/23 09:49 05/19/23 16:26 Labs: BMP 05/19/23 16:26 Sodium 136 Potassium 4.4 D Chloride 105 Carbon Dioxide 21 L BUN 18 H Creatinine 1.15 Calcium 9.8 Microbiology Microbiology Results: Microbiology 05/18/23 13:54 Blood - Venous Blood Culture - Preliminary No growth after 24 hours. 05/18/23 13:54 Blood - Venous Blood Culture - Preliminary No growth after 24 hours. Assessment and Plan (1) COVID: Status: Acute This is most likely resolving COVID pneumonia with pulmonary fibrosis post COVID. He is at risk for long COVID. He has hypoxia but no lobar pneumonia or clear indication bacterial pneumonia. (2) Hypoxia: Status: Acute (3) Multifocal pneumonia: Status: Acute Plan Steroids such as Dexamethasone until becomes less hypoxic over 94%,probable 10 d Check HIV test. Hold antibiotics as doesnt look like bacterial lobar pneumonia. Time Spent With Patient Time: Total time managing care of this patient today ____ minutes.
[2023-05-20] VITALS (7 sets, daily range): BP systolic 122–140; BP diastolic 62–89; PULSE 62–94; RESP 16–20; TEMP 36.3–37.2; O2SAT 92–94
[2023-05-20 00:11] LABS: Glucose, Whole Blood 377 mg/dL (60-115)
[2023-05-20 00:29] LABS: Procalcitonin 0.03 ng/mL
[2023-05-20 06:22] LABS: Glucose, Whole Blood 185 mg/dL (60-115)
[2023-05-20 07:28] LABS: Glucose, Whole Blood 175 mg/dL (60-115)
[2023-05-20] MEDS: Fluticasone/Vilanterol 100/25 BLST.W.DEV 1 PUFF INHALE (08:26)
[2023-05-20] MEDS: Albuterol/Iprat 2.5/0.5MG 3 ML AMPUL.NEB INHALE ×3 (08:28→20:02)
[2023-05-20] MEDS: dexAMETHasone sod phosphate 4 MG/ML VIAL 6 MG IVPUSH (08:30)
[2023-05-20] MEDS: Pyridoxine HCl (Vitamin B6) 50 MG TABLET PO (08:30)
[2023-05-20] MEDS: Multivitamin TABLET 1 TAB PO (08:30)
[2023-05-20] MEDS: Escitalopram Oxalate 5 MG TABLET PO (08:30)
[2023-05-20] MEDS: Insulin Lispro 100 UNIT/ML 3 ML VIAL SUBCUT ×4 (08:30→21:13)
[2023-05-20] MEDS: 0.9 % Sodium Chloride Flush 3 ML SYRINGE IVFLUSH ×3 (08:31→21:14)
[2023-05-20] MEDS: Insulin Glargine,Hum.rec.anlog 100 UNIT/ML 10 ML VIAL 8 UNIT SUBCUT (08:31)
[2023-05-20 09:39] LABS: HIV AB/AG Nonreactive (Nonreactive); HIV Num 1 0.04 S/CO (0.00-0.99)
[2023-05-20 10:57] LABS: Glucose, Whole Blood 296 mg/dL (60-115)
--- NOTE | 2023-05-20 16:06 | P.PNIM_ITS ---
Subjective Subjective Date of Service: 05/20/23 Interval History: SOB, generalized weakness Review of Systems shortness of breath with minimum exertion, still feels generalized weak. No fever or chills Encouraged to get out of bed Physical Exam 2 Vital Signs: Vital Signs: Last Vital Signs Temp 98.3 F 05/20/23 15:28 Pulse 94 05/20/23 15:28 Resp 18 05/20/23 15:28 BP 140/69 H 05/20/23 15:28 Pulse Ox 93 05/20/23 15:28 O2 Del Method Nasal Cannula 05/20/23 15:28 O2 Flow Rate 2 05/20/23 15:28 BMI result Body Mass Index 29.3 Appearance: Alert.? Oriented X3.? sob. cvs: rrr, [id number] , no murmur res: air entry similar to yesterday,has mild wheezin abd: no rebound or guarding ,nt, bs present. ext pulses present , no cyanosis. neuro: axo3 , nonfocal. Objective Data Active Medications Acetaminophen (Acetaminophen 325 Mg Tablet) 650 mg PO Q6H PRN PRN Reason: Pain, Mild (Pain Scale 1-3) Albuterol/Ipratropium (Albuterol/Iprat 2.5/0.5mg 3 Ml Ampul.Neb) 3 ml INHALE RQ4H WHILE AWAKE [facility] Last Admin: 05/20/23 15:12 Dose: Not Given Documented By: CLAUDETTE Non-Admin Reason: Patient Asleep Atorvastatin Calcium (Atorvastatin Calcium 40 Mg Tablet) 40 mg PO BEDTIME [facility] Last Admin: 05/19/23 21:16 Dose: 40 mg Documented By: KVNG Dexamethasone Sodium Phosphate (Dexamethasone Sod Phosphate 4 Mg/Ml Vial) 6 mg IVPUSH DAILY [facility] Last Admin: 05/20/23 08:30 Dose: 6 mg Documented By: DOMENICA Dextrose (Dextrose 50 % 25 Gm/50 Ml Syringe) 25 gm IVPUSH Q15M PRN; Protocol PRN Reason: per Hypoglycemia Standing Ord. Docusate Sodium (Docusate Sodium 100 Mg Capsule) 100 mg PO DAILY PRN PRN Reason: Constipation Enoxaparin Sodium (Enoxaparin Sodium 40 Mg/0.4 Ml Syringe) 40 mg SUBCUT Q24H [facility] Last Admin: 05/19/23 18:31 Dose: 40 mg Documented By: ADI Escitalopram Oxalate (Escitalopram Oxalate 5 Mg Tablet) 5 mg PO DAILY [facility] Last Admin: 05/20/23 08:30 Dose: 5 mg Documented By: DOMENICA Fluticasone/Vilanterol (Fluticasone/Vilanterol 100/25 Blst.W.Dev) 1 puff INHALE RDAILY [facility] Last Admin: 05/20/23 08:26 Dose: 1 puff Documented By: CLAUDETTE Glucose (Glucose Gel 15 Gm Gel..Gram.) 15 gm PO Q15M PRN; Protocol PRN Reason: per Hypoglycemia Standing Ord. Insulin Glargine (Insulin Glargine,Hum.Rec.Anlog 100 Unit/Ml 10 Ml Vial) 8 unit SUBCUT DAILY [facility] Last Admin: 05/20/23 08:31 Dose: 8 unit Documented By: DOMENICA Insulin Human Lispro (Insulin Lispro 100 Unit/Ml 3 Ml Vial) 0 unit SUBCUT QIDACHS [facility]; Protocol Last Admin: 05/20/23 14:25 Dose: 8 unit Documented By: DOMENICA Multivitamins/Vitamin C (Multivitamin Tablet) 1 tab PO DAILY [facility] Last Admin: 05/20/23 08:30 Dose: 1 tab Documented By: DOMENICA Pyridoxine HCl (Pyridoxine Hcl (Vitamin B6) 50 Mg Tablet) 50 mg PO DAILY [facility] Last Admin: 05/20/23 08:30 Dose: 50 mg Documented By: DOMENICA Sodium Chloride (0.9 % Sodium Chloride Flush 3 Ml Syringe) [facility] Last Admin: 05/20/23 08:31 Dose: 3 ml Documented By: DOMENICA Tiotropium [place] (Tiotropium [place] 2.5 Mcg Inhaler) 2 [facility] Last Admin: 05/20/23 08:26 Dose: 2 puff Documented By: CLAUDETTE Trazodone HCl (Trazodone Hcl 50 Mg Tablet) 50 mg PO BEDTIME PRN PRN Reason: Insomnia Labs 05/18/23 09:49 05/19/23 16:26 Labs: Laboratory Results - last 24 hr 05/19/23 05/19/23 05/19/23 16:26 18:45 21:15 Anion Gap 14 Estim Creat Clear Calc 69.1 Estimated GFR > 60 POC Glucose 395 H* 377 H* Random Glucose 512 H* Estimat Average Glucose 226 Hemoglobin A1c % 9.5 H Calcium 9.8 Procalcitonin HIV 1&2 Ab/P24 Ag 4thGn 05/19/23 05/20/23 05/20/23 23:33 06:10 07:21 Anion Gap Estim Creat Clear Calc Estimated GFR POC Glucose 185 H 175 H Random Glucose Estimat Average Glucose Hemoglobin A1c % Calcium Procalcitonin 0.03 HIV 1&2 Ab/P24 Ag 4thGn Nonreactive 05/20/23 10:49 Anion Gap Estim Creat Clear Calc Estimated GFR POC Glucose 296 H Random Glucose Estimat Average Glucose Hemoglobin A1c % Calcium Procalcitonin HIV 1&2 Ab/P24 Ag 4thGn Microbiology Microbiology Results: Microbiology 05/18/23 13:54 Blood Culture - Preliminary Blood - Venous No growth after 48 hours. 05/18/23 13:54 Blood Culture - Preliminary Blood - Venous No growth after 48 hours. Assessment and Plan (1) COVID: Status: Acute (2) Hypoxia: Status: Acute (3) Multifocal pneumonia: Status: Acute Plan 67-year-old male with a PMH significant for?non-insulin dependent diabetes type 2, HTN, HLD, and mild intermittent asthma who presents to the ED with?increasing shortness of breath and generalized weakness. Pt will be admitted to the hospital and treated for acute hypoxic respiratory failure in the setting of community-acquired multifocal pneumonia. Acute hypoxic respiratory failure in the setting of community-acquired multi focal pneumonia and COVID infection Patient with increased SOB, productive cough, generalized weakness, anorexia x10 days positive for COVID-19 Patient satting as low as 88% on RA, not on home O2, chest CT suggestive of multifocal pneumonia tachycardia, tachypnea improving ; lactic acid WNL at 1.6 continue IV antibiotics: Ceftriaxone, azithromycin, started 05/18/2023,Dexamethasone 6 mg,DuoNebs,Titrate supplemental O2 >92, wean as tolerated Non-insulin dependent diabetes type 2 with hyperglycemia (possible steriod related) Hold home meds Hba1c levels 9.[address] on sliding scale insulin,added lantus Diabetic diet HTN Acceptable control on current therapy Continue home meds HLD Continue statin Full Code DVT Prophylaxis: Lovenox ongoing continued hospitalization need -multifocal pneumonia and COVID infection- need iv antibiotics ,steriods ,also repiratory sttaus not optimal yet, blood cultures also pending. Time Spent With Patient Time: Total time managing care of this patient today ____ minutes. Quality Stroke Does the patient have a stroke diagnosis?: No VTE Prior VTE?: No VTE Risk Level:: Medical - moderate - high VTE Device Contraindication: Treatment Not Indicated VTE Drug Contraindication: N/A - Med Ordered
[2023-05-20 16:20] LABS: Glucose, Whole Blood 438 mg/dL (60-115)
[2023-05-20 20:48] LABS: Glucose, Whole Blood 367 mg/dL (60-115)
[2023-05-20] MEDS: Enoxaparin Sodium 40 MG/0.4 ML SYRINGE SUBCUT (21:13)
[2023-05-20] MEDS: Loratadine 10 MG TABLET PO (21:13)
[2023-05-20] MEDS: Atorvastatin Calcium 40 MG TABLET PO (21:13)
[2023-05-21 03:45] VITALS: BP 124/84; PULSE 94; RESP 18; TEMP 36.8; O2SAT 94
[2023-05-21 05:24] LABS: Glucose, Whole Blood 277 mg/dL (60-115)
[2023-05-21 07:14] VITALS: BP 138/84; PULSE 67; RESP 20; TEMP 36.7; O2SAT 94
[2023-05-21 07:15] LABS: Glucose, Whole Blood 246 mg/dL (60-115)
[2023-05-21] MEDS: Insulin Lispro 100 UNIT/ML 3 ML VIAL SUBCUT ×4 (08:06→20:54)
[2023-05-21] MEDS: dexAMETHasone sod phosphate 4 MG/ML VIAL 6 MG IVPUSH (08:08)
[2023-05-21] MEDS: Insulin Glargine,Hum.rec.anlog 100 UNIT/ML 10 ML VIAL 10 UNIT SUBCUT (08:08)
[2023-05-21] MEDS: Multivitamin TABLET 1 TAB PO (08:09)
[2023-05-21] MEDS: Escitalopram Oxalate 5 MG TABLET PO (08:09)
[2023-05-21] MEDS: Loratadine 10 MG TABLET PO (08:09)
[2023-05-21] MEDS: Pyridoxine HCl (Vitamin B6) 50 MG TABLET PO (08:09)
[2023-05-21] MEDS: Fluticasone/Vilanterol 100/25 BLST.W.DEV 1 PUFF INHALE (08:55)
[2023-05-21] MEDS: Albuterol/Iprat 2.5/0.5MG 3 ML AMPUL.NEB INHALE ×2 (08:56→19:01)
[2023-05-21 08:57] VITALS: PULSE 77; RESP 16; O2SAT 95
[2023-05-21] MEDS: guaiFENesin 200 MG/10 ML 10 ML LIQUID PO ×2 (09:32→12:27)
[2023-05-21] MEDS: 0.9 % Sodium Chloride Flush 3 ML SYRINGE IVFLUSH ×2 (09:32→16:15)
[2023-05-21 11:03] LABS: Glucose, Whole Blood 449 mg/dL (60-115)
--- NOTE | 2023-05-21 13:16 | HO.PM.IMPN ---
Subjective Subjective Date of Service: 05/21/23 Interval History: SOB, generalized weakness Review of Systems shortness of breath similar to yesterday. No fever or chills Encouraged to get out of bed has cough Physical Exam Vital Signs: Vital Signs: Last Vital Signs Temp 98.0 F 05/21/23 07:14 Pulse 77 05/21/23 08:57 Resp 16 05/21/23 08:57 BP 138/84 05/21/23 07:14 Pulse Ox 94 05/21/23 07:14 O2 Del Method Room Air 05/21/23 07:14 O2 Flow Rate 2 05/20/23 15:28 BMI result Body Mass Index 29.3 Appearance: Alert.? Oriented X3.? sob. cvs: [id number], [id number] , no murmur res: air entry similar to yesterday,has mild wheezin abd: no rebound or guarding ,nt, bs present. ext pulses present , no cyanosis. neuro: axo3 , nonfocal. Objective Data Active Medications Acetaminophen (Acetaminophen 325 Mg Tablet) 650 mg PO Q6H PRN PRN Reason: Pain, Mild (Pain Scale 1-3) Albuterol/Ipratropium (Albuterol/Iprat 2.5/0.5mg 3 Ml Ampul.Neb) 3 ml INHALE RQ4H WHILE AWAKE [facility] Last Admin: 05/21/23 12:04 Dose: Not Given Documented By: CLAUDETTE Non-Admin Reason: Patient Asleep Atorvastatin Calcium (Atorvastatin Calcium 40 Mg Tablet) 40 mg PO BEDTIME [facility] Last Admin: 05/20/23 21:13 Dose: 40 mg Documented By: KVNG Dexamethasone Sodium Phosphate (Dexamethasone Sod Phosphate 4 Mg/Ml Vial) 6 mg IVPUSH DAILY [facility] Last Admin: 05/21/23 08:08 Dose: 6 mg Documented By: DOMENICA Dextrose (Dextrose 50 % 25 Gm/50 Ml Syringe) 25 gm IVPUSH Q15M PRN; Protocol PRN Reason: per Hypoglycemia Standing Ord. Docusate Sodium (Docusate Sodium 100 Mg Capsule) 100 mg PO DAILY PRN PRN Reason: Constipation Enoxaparin Sodium (Enoxaparin Sodium 40 Mg/0.4 Ml Syringe) 40 mg SUBCUT Q24H [facility] Last Admin: 05/20/23 21:13 Dose: 40 mg Documented By: KVNG Escitalopram Oxalate (Escitalopram Oxalate 5 Mg Tablet) 5 mg PO DAILY [facility] Last Admin: 05/21/23 08:09 Dose: 5 mg Documented By: DOMENICA Fluticasone/Vilanterol (Fluticasone/Vilanterol 100/25 Blst.W.Dev) 1 puff INHALE RDAILY [facility] Last Admin: 05/21/23 08:55 Dose: 1 puff Documented By: CLAUDETTE Glucose (Glucose Gel 15 Gm Gel..Gram.) 15 gm PO Q15M PRN; Protocol PRN Reason: per Hypoglycemia Standing Ord. Guaifenesin (Guaifenesin 200 Mg/10 Ml 10 Ml Liquid) 10 ml PO Q4H [facility] Last Admin: 05/21/23 12:27 Dose: 10 ml Documented By: DOMENICA Insulin Glargine (Insulin Glargine,Hum.Rec.Anlog 100 Unit/Ml 10 Ml Vial) 10 unit SUBCUT DAILY [facility] Last Admin: 05/21/23 08:08 Dose: 10 unit Documented By: DOMENICA Insulin Human Lispro (Insulin Lispro 100 Unit/Ml 3 Ml Vial) 0 unit SUBCUT QIDACHS [facility]; Protocol Last Admin: 05/21/23 12:26 Dose: 16 unit Documented By: DOMENICA Loratadine (Loratadine 10 Mg Tablet) 10 mg PO DAILY [facility] Last Admin: 05/21/23 08:09 Dose: 10 mg Documented By: DOMENICA Multivitamins/Vitamin C (Multivitamin Tablet) 1 tab PO DAILY [facility] Last Admin: 05/21/23 08:09 Dose: 1 tab Documented By: DOMENICA Pyridoxine HCl (Pyridoxine Hcl (Vitamin B6) 50 Mg Tablet) 50 mg PO DAILY [facility] Last Admin: 05/21/23 08:09 Dose: 50 mg Documented By: DOMENICA Sodium Chloride (0.9 % Sodium Chloride Flush 3 Ml Syringe) [facility] Last Admin: 05/21/23 09:32 Dose: 3 ml Documented By: DOMENICA Tiotropium [place] (Tiotropium [place] 2.5 Mcg Inhaler) 2 puff INHALE RDAILY [facility] Last Admin: 05/21/23 08:55 Dose: 2 puff Documented By: CLAUDETTE Trazodone HCl (Trazodone Hcl 50 Mg Tablet) 50 mg PO BEDTIME PRN PRN Reason: Insomnia Labs 05/18/23 09:49 05/19/23 16:26 Labs: Laboratory Results - last 24 hr 05/20/23 05/20/23 05/21/23 16:11 20:43 05:16 POC Glucose 438 H* 367 H* 277 H 05/21/23 05/21/23 07:01 10:54 POC Glucose 246 H 449 H* Microbiology Microbiology Results: Microbiology 05/18/23 13:54 Blood Culture - Preliminary Blood - Venous No growth after 48 hours. 05/18/23 13:54 Blood Culture - Preliminary Blood - Venous No growth after 48 hours. Assessment and Plan (1) Multifocal pneumonia: Status: Acute (2) Hypoxia: Status: Acute (3) COVID: Status: Acute Plan 67-year-old male with a PMH significant for?non-insulin dependent diabetes type 2, HTN, HLD, and mild intermittent asthma who presents to the ED with?increasing shortness of breath and generalized weakness. Pt will be admitted to the hospital and treated for acute hypoxic respiratory failure in the setting of community-acquired multifocal pneumonia. Acute hypoxic respiratory failure in the setting of community-acquired multi focal pneumonia and COVID infection Patient with increased SOB, productive cough, generalized weakness, anorexia x10 days positive for COVID-19 Patient satting as low as 88% on RA, not on home O2, chest CT suggestive of multifocal pneumonia tachycardia, tachypnea improving ; lactic acid WNL at 1.6 continue IV antibiotics: Ceftriaxone, azithromycin, started 05/18/2023,Dexamethasone 6 mg,DuoNebs,Titrate supplemental O2 >92, wean as tolerated Non-insulin dependent diabetes type 2 with hyperglycemia (possible steriod related) Hold home meds Hba1c levels 9.[address] on sliding scale insulin,adjusted lantus 10 units. Diabetic diet HTN Acceptable control on current therapy Continue home meds HLD Continue statin Full Code DVT Prophylaxis: Lovenox ongoing continued hospitalization need -multifocal pneumonia and COVID infection- need iv antibiotics ,steriods ,also repiratory status not optimal yet, blood cultures also pending. Time Spent With Patient Time: Total time managing care of this patient today ____ minutes. Quality Stroke Does the patient have a stroke diagnosis?: No VTE Prior VTE?: No VTE Risk Level:: Medical - moderate - high VTE Device Contraindication: Treatment Not Indicated VTE Drug Contraindication: N/A - Med Ordered
[2023-05-21 15:26] VITALS: BP 129/61; PULSE 89; RESP 18; TEMP 36.7; O2SAT 91
[2023-05-21 15:55] LABS: Glucose, Whole Blood 457 mg/dL (60-115)
[2023-05-21 19:04] VITALS: PULSE 65; RESP 18; O2SAT 92
[2023-05-21] MEDS: Enoxaparin Sodium 40 MG/0.4 ML SYRINGE SUBCUT (19:36)
[2023-05-21 19:49] VITALS: BP 142/73; PULSE 85; RESP 18; TEMP 37; O2SAT 91
[2023-05-21 20:14] LABS: Glucose, Whole Blood 339 mg/dL (60-115)
[2023-05-21] MEDS: Atorvastatin Calcium 40 MG TABLET PO (20:54)
[2023-05-22] VITALS (7 sets, daily range): BP systolic 112–134; BP diastolic 58–90; PULSE 67–75; RESP 16–20; TEMP 36.1–36.8; O2SAT 92–94
[2023-05-22] MEDS: 0.9 % Sodium Chloride Flush 3 ML SYRINGE IVFLUSH ×4 (00:41→20:46)
[2023-05-22 07:39] LABS: Glucose, Whole Blood 215 mg/dL (60-115)
[2023-05-22] MEDS: Albuterol/Iprat 2.5/0.5MG 3 ML AMPUL.NEB INHALE ×2 (08:04→18:49)
[2023-05-22] MEDS: Fluticasone/Vilanterol 100/25 BLST.W.DEV 1 PUFF INHALE (08:04)
[2023-05-22] MEDS: Multivitamin TABLET 1 TAB PO (08:25)
[2023-05-22] MEDS: dexAMETHasone sod phosphate 4 MG/ML VIAL 6 MG IVPUSH (08:25)
[2023-05-22] MEDS: Loratadine 10 MG TABLET PO (08:25)
[2023-05-22] MEDS: Insulin Glargine,Hum.rec.anlog 100 UNIT/ML 10 ML VIAL 15 UNIT SUBCUT (08:25)
[2023-05-22] MEDS: Pyridoxine HCl (Vitamin B6) 50 MG TABLET PO (08:25)
[2023-05-22] MEDS: Escitalopram Oxalate 5 MG TABLET PO (08:25)
[2023-05-22] MEDS: Insulin Lispro 100 UNIT/ML 3 ML VIAL SUBCUT ×4 (08:25→21:58)
[2023-05-22 11:22] LABS: Glucose, Whole Blood 298 mg/dL (60-115)
[2023-05-22] MEDS: polyethylene glycoL 3350 17 GM POWD.PACK PO (11:38)
--- NOTE | 2023-05-22 11:46 | MHC.CM.PN ---
PER MD ROUNDS, PT NOT YET READY TO DC DCP TBD PENDING PTS RECOVERY/DECOMPENSATION ? PT EVAL
--- NOTE | 2023-05-22 15:49 | P.PNIM_ITS ---
Subjective Subjective Date of Service: 05/22/23 Interval History: SOB, Review of Systems shortness of breath slightly improving. No fever or chills Encouraged to get out of bed has cough Physical Exam 2 Vital Signs: Vital Signs: Last Vital Signs Temp 98.2 F 05/22/23 15:28 Pulse 68 05/22/23 15:28 Resp 16 05/22/23 15:28 BP 134/73 05/22/23 15:28 Pulse Ox 92 05/22/23 15:28 O2 Del Method Room Air 05/22/23 15:28 O2 Flow Rate 2 05/20/23 15:28 BMI result Body Mass Index 29.3 Appearance: Alert.? Oriented X3.? sob. cvs: rrr, [id number] , no murmur res: air entry similar to yesterday,has mild wheezin abd: no rebound or guarding ,nt, bs present. ext pulses present , no cyanosis. neuro: axo3 , nonfocal. Objective Data Active Medications Acetaminophen (Acetaminophen 325 Mg Tablet) 650 mg PO Q6H PRN PRN Reason: Pain, Mild (Pain Scale 1-3) Albuterol/Ipratropium (Albuterol/Iprat 2.5/0.5mg 3 Ml Ampul.Neb) 3 ml INHALE RQ4H WHILE AWAKE [facility] Last Admin: 05/22/23 15:33 Dose: Not Given Documented By: FUNMILAYO Non-Admin Reason: pt refused pt will call when want neb Atorvastatin Calcium (Atorvastatin Calcium 40 Mg Tablet) 40 mg PO BEDTIME [facility] Last Admin: 05/21/23 20:54 Dose: 40 mg Documented By: CARRIE Dexamethasone Sodium Phosphate (Dexamethasone Sod Phosphate 4 Mg/Ml Vial) 6 mg IVPUSH DAILY [facility] Last Admin: 05/22/23 08:25 Dose: 6 mg Documented By: LUCINDA Dextrose (Dextrose 50 % 25 Gm/50 Ml Syringe) 25 gm IVPUSH Q15M PRN; Protocol PRN Reason: per Hypoglycemia Standing Ord. Docusate Sodium (Docusate Sodium 100 Mg Capsule) 100 mg PO DAILY PRN PRN Reason: Constipation Enoxaparin Sodium (Enoxaparin Sodium 40 Mg/0.4 Ml Syringe) 40 mg SUBCUT Q24H [facility] Last Admin: 05/21/23 19:36 Dose: 40 mg Documented By: CARRIE Escitalopram Oxalate (Escitalopram Oxalate 5 Mg Tablet) 5 mg PO DAILY [facility] Last Admin: 05/22/23 08:25 Dose: 5 mg Documented By: LUCINDA Fluticasone/Vilanterol (Fluticasone/Vilanterol 100/25 Blst.W.Dev) 1 puff INHALE RDAILY [facility] Last Admin: 05/22/23 08:04 Dose: 1 puff Documented By: FUNMILAYO Glucose (Glucose Gel 15 Gm Gel..Gram.) 15 gm PO Q15M PRN; Protocol PRN Reason: per Hypoglycemia Standing Ord. Guaifenesin (Guaifenesin 200 Mg/10 Ml 10 Ml Liquid) 10 ml PO Q4H [facility] Last Admin: 05/22/23 13:51 Dose: Not Given Documented By: LUCINDA Non-Admin Reason: Patient Refused Insulin Glargine (Insulin Glargine,Hum.Rec.Anlog 100 Unit/Ml 10 Ml Vial) 15 unit SUBCUT DAILY [facility] Last Admin: 05/22/23 08:25 Dose: 15 unit Documented By: LUCINDA Insulin Human Lispro (Insulin Lispro 100 Unit/Ml 3 Ml Vial) 0 unit SUBCUT QIDACHS [facility]; Protocol Last Admin: 05/22/23 11:38 Dose: 10 unit Documented By: LUCINDA Loratadine (Loratadine 10 Mg Tablet) 10 mg PO DAILY [facility] Last Admin: 05/22/23 08:25 Dose: 10 mg Documented By: LUCINDA Multivitamins/Vitamin C (Multivitamin Tablet) 1 tab PO DAILY [facility] Last Admin: 05/22/23 08:25 Dose: 1 tab Documented By: LUCINDA Pyridoxine HCl (Pyridoxine Hcl (Vitamin B6) 50 Mg Tablet) 50 mg PO DAILY [facility] Last Admin: 05/22/23 08:25 Dose: 50 mg Documented By: LUCINDA Sodium Chloride (0.9 % Sodium Chloride Flush 3 Ml Syringe) [facility] Last Admin: 05/22/23 08:26 Dose: 3 ml Documented By: LUCINDA Tiotropium [place] (Tiotropium [place] 2.5 Mcg Inhaler) 2 puff INHALE RDAILY [facility] Last Admin: 09/11/23 08:04 Dose: 2 puff Documented By: FUNMILAYO Trazodone HCl (Trazodone Hcl 50 Mg Tablet) 50 mg PO BEDTIME PRN PRN Reason: Insomnia Labs 05/18/23 09:49 05/19/23 16:26 Labs: Laboratory Results - last 24 hr 05/21/23 05/21/23 05/22/23 15:25 19:48 07:29 POC Glucose 457 H* 339 H 215 H 05/22/23 11:11 POC Glucose 298 H Assessment and Plan (1) Multifocal pneumonia: Status: Acute (2) Hypoxia: Status: Acute (3) COVID: Status: Acute Plan 67-year-old male with a PMH significant for?non-insulin dependent diabetes type 2, HTN, HLD, and mild intermittent asthma who presents to the ED with?increasing shortness of breath and generalized weakness. Pt will be admitted to the hospital and treated for acute hypoxic respiratory failure in the setting of community-acquired multifocal pneumonia. Acute hypoxic respiratory failure in the setting of community-acquired multi focal pneumonia and COVID infection Patient with increased SOB, productive cough, generalized weakness, anorexia x10 days positive for COVID-[address](05/18/23) suggestive of multifocal pneumonia cxr done today-finding unchanged. continue IV antibiotics: Ceftriaxone, azithromycin, started 05/18/2023,Dexamethasone 6 mg(05/18/23),DuoNebs,Titrate supplemental O2 >92, wean as tolerated Non-insulin dependent diabetes type 2 with hyperglycemia (possible steriod related) Hold home meds Hba1c levels 9.[address] on sliding scale insulin,adjusted lantus 10 units. Diabetic diet HTN Acceptable control on current therapy Continue home meds HLD Continue statin Full Code DVT Prophylaxis: Lovenox ongoing continued hospitalization need -multifocal pneumonia and COVID infection- need iv antibiotics ,steriods ,also repiratory status not optimal yet, blood cultures @48hrs. Time Spent With Patient Time: Total time managing care of this patient today ____ minutes. Quality Stroke Does the patient have a stroke diagnosis?: No VTE Prior VTE?: No VTE Risk Level:: Medical - moderate - high VTE Device Contraindication: Treatment Not Indicated VTE Drug Contraindication: N/A - Med Ordered
[2023-05-22 16:55] LABS: Glucose, Whole Blood 415 mg/dL (60-115)
[2023-05-22] MEDS: Enoxaparin Sodium 40 MG/0.4 ML SYRINGE SUBCUT (20:45)
[2023-05-22] MEDS: Atorvastatin Calcium 40 MG TABLET PO (20:45)
[2023-05-22 20:53] LABS: Glucose, Whole Blood 246 mg/dL (60-115)
[2023-05-22] MEDS: traZODone HCL 50 MG TABLET PO (21:58)
[2023-05-23 03:03] VITALS: BP 103/62; PULSE 65; RESP 18; TEMP 36.5; O2SAT 94
[2023-05-23 07:39] LABS: Strep Pneumo Ag urine Not Detected (Not Detected)
[2023-05-23 07:50] LABS: Glucose, Whole Blood 213 mg/dL (60-115)
[2023-05-23 07:54] VITALS: BP 127/88; PULSE 75; RESP 16; TEMP 36.7; O2SAT 93
[2023-05-23] MEDS: Albuterol/Iprat 2.5/0.5MG 3 ML AMPUL.NEB INHALE (08:11)
[2023-05-23] MEDS: Fluticasone/Vilanterol 100/25 BLST.W.DEV 1 PUFF INHALE (08:11)
[2023-05-23 08:13] VITALS: PULSE 75; RESP 16; O2SAT 93
[2023-05-23] MEDS: Loratadine 10 MG TABLET PO (08:34)
[2023-05-23] MEDS: Escitalopram Oxalate 5 MG TABLET PO (08:34)
[2023-05-23] MEDS: Pyridoxine HCl (Vitamin B6) 50 MG TABLET PO (08:34)
[2023-05-23] MEDS: Multivitamin TABLET 1 TAB PO (08:34)
[2023-05-23] MEDS: dexAMETHasone sod phosphate 4 MG/ML VIAL 6 MG IVPUSH (08:36)
[2023-05-23] MEDS: Insulin Lispro 100 UNIT/ML 3 ML VIAL SUBCUT (08:39)
[2023-05-23] MEDS: Insulin Glargine,Hum.rec.anlog 100 UNIT/ML 10 ML VIAL 15 UNIT SUBCUT (08:40)
[2023-05-23] MEDS: 0.9 % Sodium Chloride Flush 3 ML SYRINGE IVFLUSH (08:41)
--- NOTE | 2023-05-23 09:50 | MHC.CM.PN ---
PT MEDICALLY CLEARED FRO D/C HOME SELF-CARE, PT TO ARRANGE TRANSPORT.
[2023-05-24 05:39] LABS: Legionella Ag Urine Not Detected (Not Detected)
--- NOTE | 2023-05-24 10:22 | PM.DS ---
DS: Providers Provider Date of Service: 05/23/23 Date of admission: 05/18/23 18:33 Primary care physician: Frank Sorensen Consults: 05/19/23 08:26 Consult to Infectious Diseases Routine Consulting Provider: [facility] [place] Infectious Disease Reason for consultation: pneumonia/covid Has provider been notified: No DS: Diagnosis Discharge Diagnosis (1) Multifocal pneumonia: Status: Acute (2) Hypoxia: Status: Acute (3) COVID: Status: Acute DS: Summary Hospital Course Hospital Course: Attending physician on admission: Simon Ivan Chief Complaint: SOB, generalized weakness Pt is a 67-year-old male with a PMH significant for?non-insulin dependent diabetes type 2, HTN, HLD, and mild intermittent asthma who presents to the ED with?increasing shortness of breath and generalized weakness. Patient states that 10 days ago he felt like he had the flu with body aches and subjective fever. A few days later patient then developed shortness of breath and cough occasionally productive of yellowish phlegm. Patient denies nausea, vomiting but states that his stomach felt crampy and he did not feel like eating. Endorses a 10 lb weight loss in the last 10 days. Patient did not present earlier to the ED because he says he is ?stubborn? and thought his symptoms would be resolved by now. Patient denies chest pain/pressure, palpitations. Patient with a remote occasional history of smoking but quit more than 10 years ago. Has a diagnosis of mild intermittent asthma, states he uses his rescue inhaler maybe once or twice a month. In the ED patient was afebrile but tachycardic up to 103, tachypneic up to 28, and setting as low as 88% O2 on RA. Labs were significant for H&H of 13.6/40.0. No leukocytosis. D-dimer negative. Electrolytes WNL hepatic function WNL. Renal function WNL. BNP negative. Troponin 7.2. UA negative for UTI. Patient also tested positive for COVID. CXR showed new bilateral reticulonodular opacities and thickened interlobular septae. CT?of chest and abdomen and pelvis suggestive of multifocal pneumonia, also showed hepatic steatosis. EKG demonstrated normal sinus rhythm with nonspecific T-wave inversion in lead II and prolonged QTc of 470. Pt was treated with DuoNeb, Solu-Medrol 60 mg IV push, ceftriaxone, and azithromycin. Pt will be admitted to the hospital and treated for acute hypoxic respiratory failure in the setting of community-acquired pneumonia. Hospital course: Patient was asdmitted due to sob, weakness and found to have covid with no signficant hypoxia and was treated with dexamehtasone, at the time of discharge, he was doing well, no sob, no hypoxia, no fever. He was to complete a total of 10 daysof dexamahasone Time Spent with Patient Time attestation: Total time managing care of this patient today ____ minutes. Discharge coordination time: Greater than 30 minutes Quality: Safe Use of Opioids Does Pt have an Active Cancer Diagnosis on the Problem List?: No Quality: Stroke Does the patient have a stroke diagnosis?: No Physical Exam Vital Signs: Vital Signs: Last Vital Signs Temp 98.1 F 05/23/23 07:54 Pulse 75 05/23/23 08:13 Resp 16 05/23/23 08:13 BP 127/88 05/23/23 07:54 Pulse Ox 93 05/23/23 07:54 O2 Del Method Room Air 05/23/23 07:54 O2 Flow Rate 2 05/20/23 15:28 BMI result Body Mass Index 29.3 DS: Data Data Completed and Pending Completed studies during hospitalization [Text1]: Procedures Dilation of Left Ureter with Intraluminal Device, Via Natural or Artificial Opening Endoscopic (10/11/22) Extirpation of Matter from Left Ureter, Via Natural or Artificial Opening Endoscopic (10/11/22) Fluoroscopy of Left Kidney, Ureter and Bladder (10/11/22) Labs on day of discharge: Laboratory Results - last 24 hr 05/18/23 14:24 Ur L.pneumophila Ag Not Detected Discharge Plan Discharge Anticipated Discharge Date/Time: 05/23/23 09:37 Patient Disposition: Home, Self-Care Discharge Diagnosis: Covid pneumonia Referrals: Frank Sorensen [Primary Care Provider] - 1 Week Discharge Medications: New dexamethasone 6 mg tablet 6 mg PO DAILY Qty: 5 0RF Continued multivitamin Tablet 1 tab PO DAILY metformin 500 mg Tablet 1,000 mg PO DAILY fluticasone propion-salmeterol [Wixela Inhub] 250-50 mcg/dose Blister With Device 1 inh INHALATION BID atorvastatin 80 mg Tablet 40 mg PO BEDTIME trazodone 50 mg Tablet 50 mg PO BEDTIME PRN (Reason: Insomnia) Rx Instructions: may repeat x1 dose lisinopril 2.5 mg Tablet 2.5 mg PO DAILY Spiriva Respimat 2.5 mcg/actuation Mist 2 puff INHALATION DAILY escitalopram oxalate 5 mg Tablet 5 mg PO DAILY pyridoxine (vitamin B6) 50 mg tablet 50 mg PO DAILY 90 Days Qty: 90 1RF Discharge Orders: Discharge Order (Routine); Ordered 05/23/23 Ordered By: Ovi Hallman Diet: Advance to usual diet Activity on Discharge: As tolerated Stand Alone Forms: Patient Portal Discharge page Care Plan Goals: recovery from covid Health Concerns: covid pneumonia Plan of Treatment: Take dexamethasone as recommended and follow up with your doctor within a week isolate for at for 5 more days and if you have go in public for essential needs, wear a mask Assessment: as above Discharge Date/Time: 05/23/23 11:49
== END 2023-05-23 11:49 | disposition home or self-care (01) | DRG 177 ==
LOC: HO.ED 13:39 → HO.EDOVER 18:40 → HO.IMC 20:48
PROVIDERS: Internal Medicine; Admitting Provider Student in an Organized Health Care Education/Training Program; Emergency Provider Emergency Medicine; PCP Internal Medicine; Visit Provider Internal Medicine
DX: U07.1 COVID-19 (principal); J18.9 Pneumonia, unspecified organism; J96.01 Acute respiratory failure with hypoxia; J45.20 Mild intermittent asthma, uncomplicated; F43.10 Post-traumatic stress disorder, unspecified; I10 Essential (primary) hypertension; E11.65 Type 2 diabetes mellitus with hyperglycemia; Z87.891 Personal history of nicotine dependence; Z79.51 Long term (current) use of inhaled steroids; Z79.84 Long term (current) use of oral hypoglycemic drugs; Z79.899 Other long term (current) drug therapy
CPT/HCPCS: 36415; 71045; 71260; 74177; 80048; 80076; 81001; 82947; 83036; 83605; 83690; 83735; 83880; 84145; 84484; 85025; 85379; 87040; 87389; 87449; 87633; 87635; 87899; 93005; 94640; 99285; J0456; J0696; J1100; J1650; J2930; Q9967

== ENCOUNTER → 2023-05-18 18:33 | Outpatient (BNV) | payer OTHER, SELFPAY | PROVIDERS: Admitting Provider Student in an Organized Health Care Education/Training Program; Emergency Provider Emergency Medicine; PCP Internal Medicine; Visit Provider Internal Medicine | DX: U07.1 COVID-19 (principal); R09.02 Hypoxemia; J18.9 Pneumonia, unspecified organism | CPT/HCPCS: 99222 ==

== ENCOUNTER → 2023-05-18 18:33 | Outpatient (BNV) | payer OTHER, SELFPAY | PROVIDERS: Admitting Provider Student in an Organized Health Care Education/Training Program; Emergency Provider Emergency Medicine; PCP Internal Medicine; Visit Provider Student in an Organized Health Care Education/Training Program | DX: J18.9 Pneumonia, unspecified organism (principal); J96.01 Acute respiratory failure with hypoxia; U07.1 COVID-19 | CPT/HCPCS: 99223; 99232; 99239 ==

== ENCOUNTER 2024-01-23 20:57 | Emergency (ER) | payer OTHER, SELFPAY ==
--- NOTE | ~2024-01-23 | CT_ITS ---
EXAMINATION: CT HEAD WITHOUT CONTRAST CT CERVICAL SPINE WITHOUT CONTRAST CT MAXILLOFACIAL WITHOUT CONTRAST CLINICAL INFORMATION: Neck trauma. Facial trauma. Fall. Head trauma. COMPARISON: None. TECHNIQUE: Multidetector volumetric imaging of the head was performed without the administration of intravenous contrast. Images were also obtained with through the cervical spine as well as the facial bones from the frontal sinuses through the mandible. Multiplanar reconstructed images in coronal and sagittal orientations were submitted. This CT examination was performed using dose optimization techniques as appropriate, variously including the following: *Automated exposure control *Adjustment of mA and/or kV according to patient size (this includes techniques or standardized protocols for targeted exams where dose is matched to indication/reason for exam; i.e. extremities or head) *Use of iterative reconstruction technique DOSE: 1530 mGy-cm FINDINGS: HEAD: There is no evidence of acute intracranial hemorrhage or territorial infarction. No abnormal mass-effect or midline shift. No extra-axial fluid collections. Coyne to white matter differentiation is well preserved. The ventricles are normal in size and configuration. There is no abnormal attenuation within the brain parenchyma. There is a thin (0.6 cm) subgaleal hematoma overlying the right frontal bone in the supraorbital region. Mild mucosal thickening of the left maxillary sinus. Paranasal sinuses otherwise clear. MAXILLOFACIAL: There is a mildly comminuted fracture of the nasal bone with depression of the more anterior fragments. The mandible, maxilla, pterygoid plates, zygomatic arches, paranasal sinus rock, and bony orbits are intact. Dental caries are evident at the left maxillary bicuspids with apical periodontitis at the second maxillary bicuspid. Numerous teeth are absent. Globes are symmetric. No retrobulbar abnormalities. Extra ocular muscles are normal. As noted above, there is mucosal thickening in the left maxillary sinus, likely odontogenic in origin given the adjacent apical periodontitis. CERVICAL SPINE: Vertebral body heights are normal. No fractures of the vertebral bodies or posterior elements. Reversal of the normal cervical lordosis is likely positional or degenerative. No vertebral body or posterior element subluxation. Degenerative osteophytes and sclerosis are present at the atlantodental articulation, though normal alignment is maintained. Craniocervical junction is normal. Mild to moderate degenerative disc disease at C4-C5, C5-C6, and C6-C7 with uncovertebral osteophytes. Mild multilevel facet arthropathy Posterior disc osteophyte complex at C5-C6 produces [id number] central canal narrowing. Uncovertebral osteophytes produce neural foraminal encroachment on the right C5-C6 and C6-C7. No significant paravertebral soft tissue swelling. Cervical soft tissues are unremarkable. Imaged portions of the lung apices are clear. CT/CT facial bones wo IV con IMPRESSION: 1. No acute intracranial pathology. Thin subgaleal hematoma over the right frontal bone. 2. Mildly comminuted and depressed nasal bone fracture. No additional facial fractures. 3. No acute fracture or malalignment in the cervical spine. 4. Left maxillary odontogenic sinusitis. 5. Mild to moderate degenerative spondylosis in the cervical spine.
--- NOTE | ~2024-01-23 | CT_ITS ---
EXAMINATION: CT HEAD WITHOUT CONTRAST CT CERVICAL SPINE WITHOUT CONTRAST CT MAXILLOFACIAL WITHOUT CONTRAST CLINICAL INFORMATION: Neck trauma. Facial trauma. Fall. Head trauma. COMPARISON: None. TECHNIQUE: Multidetector volumetric imaging of the head was performed without the administration of intravenous contrast. Images were also obtained with through the cervical spine as well as the facial bones from the frontal sinuses through the mandible. Multiplanar reconstructed images in coronal and sagittal orientations were submitted. This CT examination was performed using dose optimization techniques as appropriate, variously including the following: *Automated exposure control *Adjustment of mA and/or kV according to patient size (this includes techniques or standardized protocols for targeted exams where dose is matched to indication/reason for exam; i.e. extremities or head) *Use of iterative reconstruction technique DOSE: 1530 mGy-cm FINDINGS: HEAD: There is no evidence of acute intracranial hemorrhage or territorial infarction. No abnormal mass-effect or midline shift. No extra-axial fluid collections. Coyne to white matter differentiation is well preserved. The ventricles are normal in size and configuration. There is no abnormal attenuation within the brain parenchyma. There is a thin (0.6 cm) subgaleal hematoma overlying the right frontal bone in the supraorbital region. Mild mucosal thickening of the left maxillary sinus. Paranasal sinuses otherwise clear. MAXILLOFACIAL: There is a mildly comminuted fracture of the nasal bone with depression of the more anterior fragments. The mandible, maxilla, pterygoid plates, zygomatic arches, paranasal sinus orck, and bony orbits are intact. Dental caries are evident at the left maxillary bicuspids with apical periodontitis at the second maxillary bicuspid. Numerous teeth are absent. Globes are symmetric. No retrobulbar abnormalities. Extra ocular muscles are normal. As noted above, there is mucosal thickening in the left maxillary sinus, likely odontogenic in origin given the adjacent apical periodontitis. CERVICAL SPINE: Vertebral body heights are normal. No fractures of the vertebral bodies or posterior elements. Reversal of the normal cervical lordosis is likely positional or degenerative. No vertebral body or posterior element subluxation. Degenerative osteophytes and sclerosis are present at the atlantodental articulation, though normal alignment is maintained. Craniocervical junction is normal. Mild to moderate degenerative disc disease at C4-C5, C5-C6, and C6-C7 with uncovertebral osteophytes. Mild multilevel facet arthropathy Posterior disc osteophyte complex at C5-C6 produces [id number] central canal narrowing. Uncovertebral osteophytes produce neural foraminal encroachment on the right C5-C6 and C6-C7. No significant paravertebral soft tissue swelling. Cervical soft tissues are unremarkable. Imaged portions of the lung apices are clear. CT/CT cervical spine wo IV con IMPRESSION: 1. No acute intracranial pathology. Thin subgaleal hematoma over the right frontal bone. 2. Mildly comminuted and depressed nasal bone fracture. No additional facial fractures. 3. No acute fracture or malalignment in the cervical spine. 4. Left maxillary odontogenic sinusitis. 5. Mild to moderate degenerative spondylosis in the cervical spine.
[2024-01-23 21:11] VITALS: BP 120/80; PULSE 96; O2SAT 97
[2024-01-23 21:14] VITALS: BP 135/75; PULSE 95; RESP 20; O2SAT 96; BMI 33.3
--- NOTE | 2024-01-23 21:18 | ECG_ITS ---
Test Reason : SYNCOPE Blood Pressure : / mmHG Vent. Rate : 087 BPM Atrial Rate : 087 BPM P-R Int : 170 ms QRS Dur : 086 ms QT Int : 378 ms P-R-T Axes : 036 -43 015 degrees QTc Int : 454 ms Normal sinus rhythm Left axis deviation Abnormal ECG When compared with ECG of 18-MAY-2023 09:55, No significant change was found Referred By: Darlyn Cohn Electronically Signed By:SHILPA OCAMPO MD
--- NOTE | 2024-01-23 21:20 | ED_ITS ---
HPI - Fall General Chief Complaint: Fall Stated Complaint: FELL 1 HR AGO NOSE PAIN Time Seen by Provider: 01/23/24 21:06 Source: patient and old records reviewed Mode of arrival: EMS Limitations: no limitations History of Present Illness HPI Narrative: 68 yo male wtih PMH of HLD, kidney stones, HTN,, mood disorder drank today had a few beers and shots of vokda does not normally drink and tried to walk home fell x 2 struck elbows scraped them no LOC. At home states he fell again and hit face + LOC unsure how long he was on ground woke up with blood all over his face. He is not on blood thinners. He was alone. complaint: fall Onset (ago): hour(s) (in last couple of hours) Fall from: standing Fall witnessed: no Place fall occurred: home and street Loss of consciousness: yes Prolonged down time: unclear Symptoms prior to fall: other (ETOH intoxication) Context: tripped/slipped and alcohol use Location of injury: head and face Severity: moderate Quality: dull and aching Associated symptoms (after fall): other (facial pain and epistaxis) Related Data Home Medications ?Medication ?Instructions ?Recorded ?Confirmed atorvastatin 80 mg tablet 40 mg PO BEDTIME 10/11/22 05/18/23 fluticasone 250 mcg-salmeterol 50 1 inh inhalation BID 10/11/22 05/18/23 mcg/dose blistr powdr for inhalation (Wixela Inhub) lisinopril 2.5 mg tablet 2.5 mg PO DAILY 10/11/22 05/18/23 metformin 500 mg tablet 1,000 mg PO DAILY 10/11/22 05/18/23 multivitamin 1 tab PO DAILY 10/11/22 05/18/23 tiotropium bromide 2.5 2 puff inhalation DAILY 10/11/22 05/18/23 mcg/actuation mist for inhalation (Spiriva Respimat) trazodone 50 mg tablet 50 mg PO BEDTIME PRN Insomnia 10/11/22 05/18/23 escitalopram oxalate 5 mg tablet 5 mg PO DAILY 05/18/23 05/18/23 Previous Rx's ?Medication ?Instructions ?Recorded pyridoxine (vitamin B6) 50 mg 50 mg PO DAILY 90 days #90 tabs 10/27/22 tablet dexamethasone 6 mg tablet 6 mg PO DAILY #5 tabs 05/23/23 amoxicillin 875 mg-potassium 1 tab PO BID #10 tabs 01/24/24 clavulanate 125 mg tablet Allergies Allergy/AdvReac Type Severity Reaction Status Date / Time No Known Allergies Allergy Verified 01/23/24 21:18 [No Known Allergies*] Review of Systems 2 Review of Systems: Constitutional : No Fever, No Chills, No Fatigue ENT/Mouth : No sore throat, No Rhinorrhea Eyes: No Eye Pain, No Swelling, No Redness Cardiovascular : No Chest Pain, No SOB, No Dyspnea on Exertion Respiratory : No Cough, No Sputum Gastrointestinal : No Nausea, No Vomiting, No Diarrhea, No abdominal Pain Genitourinary : No Dysuria, No Urinary Frequency, No Hematuria, Musculoskeletal : No joint pain, No Myalgias, No Joint Swelling Skin : No Skin Lesions, No rash Neuro : No Weakness, No Numbness, No Dizziness, positive Headache Psych : No Anxiety/Panic, No Depression Heme/Lymph: No Bruising, No Bleeding,No Lymphadenopathy Endocrine : No Polyuria, No Polydipsia All other systems reviewed and are negative [facility] Past Medical History Attestation statement: The following information was validated with the patient. Source: old records reviewed Medical History Mood disorder Non-insulin dependent type 2 diabetes mellitus Mixed hyperlipidemia Essential hypertension Social History Social History Household Members: None Housing: Apartment Do you presently have visiting nurse or other home services: No Alcohol intake: current Alcohol intake frequency: does not drink Patient Tobacco Use Status: Former Tobacco user Smoked in Last 30 Days: No Use of substances other than those prescribed or required for medical reasons: No Advance Directives: No Advance Directives Information Provided: No Do you have a plan to hurt others: No Plan service: Yes Current occupational status: retired Physical Exam 2 Vital Signs: Vital Signs: Last Vital Signs Pulse 77 01/23/24 23:28 Resp 13 01/23/24 23:28 BP 126/72 01/23/24 23:28 Pulse Ox 94 01/23/24 23:28 O2 Del Method Room Air 01/23/24 23:28 BMI result Body Mass Index 33.3 Appearance: Alert. Oriented X3. No acute distress. Eyes: Pupils equal, round and reactive to light. ENT: Pharynx normal. contusion to nasal bridge no nasal septal hematoma no raccoon eyes no white sign - has contusion to R forehead Neck: Normal inspection. Neck supple. has mild bilateral trapezius ttp CVS: Normal heart rate and rhythm. Pulses normal. Chest wall: no ttp Respiratory: No respiratory distress. Breath sounds normal. Abdomen: Soft and non-tender. Skin: Skin warm and dry. Normal skin color. Normal skin turgor. Extremities: No lower extremity edema. Neuro: Oriented X 3. No motor deficit. No sensory deficit. Medications Administered Discontinued Medications Generic Name Dose Route Start Last Admin Trade Name Freq PRN Reason Stop Dose Admin Acetaminophen 650 mg 01/23/24 21:18 01/23/24 22:13 Acetaminophen 325 Mg Tablet PO 01/23/24 21:19 650 mg ONCE ONE Administration Ondansetron HCl 4 mg 01/23/24 21:18 01/23/24 22:13 Ondansetron Odt 4 Mg Tab.Rapdis TRANSLINGU 01/23/24 21:19 4 mg ONCE ONE Administration Oxycodone HCl 5 mg 01/23/24 21:18 01/23/24 22:13 Oxycodone Hcl Immed Release 5 Mg Tablet PO 01/23/24 21:19 5 mg ONCE ONE Administration Medical Decision Making Medical Decision Making [facility] Narrative: 68 yo male wtih PMH of HLD, kidney stones, HTN,, mood disorder here with c/o facial trauma, head trauma, minor scrapes after repeat falls while drinking ETOH at this time will need EKG, basic labs, CT head/cspine, facial bones - PO pain control no signs of nasal septal hematoma of basilar skull fracture. Suspect falls due to intoxication Differential Diagnosis Differential Diagnoses: The differential diagnosis associated with the presentation includes facial trauma, intoxication, fracture Admission/Observation Consideration of admission/observation: Escalation of care including admission/observation considered he is GCS 15 once medically cleared he will be stable for DC will ambulate and anticipate steady gait he is eating and drinking Lab Data [facility] Lab Attestation statement: I reviewed the patient's lab results. 01/23/24 21:54 01/23/24 21:54 Labs: Lab Results 01/23/24 Range/Units 21:54 WBC 13.7 H (4.8-10.8) X10*3/uL RBC 4.69 (4.60-5.80) X10*6/uL Hgb 14.2 (14.0-18.0) g/dl Hct 41.9 L (42.0-52.0) % MCV 89.3 (80.0-98.0) fL MCH 30.3 (27.0-33.0) pg MCHC 33.9 (31.0-36.0) g/dl RDW 13.1 (11.0-16.0) % Plt Count 285 D (160-400) X10*3/uL MPV 10.6 (9.4-12.4) fL Immature Gran % (Auto) 0.6 H (0.0-0.4) % Neut % (Auto) 85.2 H (45-73) % Lymph % (Auto) 9.5 L (20-40) % Calvert % (Auto) 4.5 (2-11) % Eos % (Auto) 0.0 (0-4) % Baso % (Auto) 0.2 (0-2) % Lymph # (Auto) 1.3 (1.2-4.9) X10*3/uL [place] # (Auto) 0.6 (0.1-1.2) X10*3/uL Eos # (Auto) 0.0 (0.0-0.4) X10*3/uL Baso # (Auto) 0.0 (0.0-0.2) X10*3/uL Abs Immat Gran (auto) 0.08 H (0.00-0.03) X10*3/uL Absolute Neuts (auto) 11.7 H (2.0-8.3) x10*3/uL Absolute Nucleated RBC 0.000 (0.0-0.012) X10*3/uL Nucleated RBC % (auto) 0.0 (0.0-0.2) /100WBC PT 13.3 (11.1-13.3) SEC INR 1.1 (0.9-1.1) Sodium 140 (135-145) mmol/L Potassium 3.8 (3.3-5.1) mmol/L Chloride 104 (96-108) mmol/L Carbon Dioxide 20 L (22-29) mmol/L Anion Gap 20 (12-20) BUN 15 (9-16) mg/dL Creatinine 1.00 (0.5-1.4) mg/dL Estim Creat Clear Calc 83.3 Estimated GFR > 60 Random Glucose 285 H (60-115) mg/dL Calcium 9.5 (8.4-10.2) mg/dL Magnesium 1.9 (1.6-2.6) mg/dL Total Bilirubin 0.4 (0.0-1.0) mg/dL Direct Bilirubin 0.1 (0.0-0.5) mg/dL AST 24 (5-37) U/L ALT 29 (0-40) U/L Alkaline Phosphatase 64 (39-117) U/L Total Creatine Kinase 335 H (38-174) U/L Troponin I High Sens 5.2 (<3.5-35.0) ng/L Total Protein 7.9 (6.5-8.0) g/dL Albumin 4.3 (3.5-5.0) g/dL Ethyl Alcohol 59 mg/dL Independent Interpretation I performed an independent interpretation of an: EKG and CT Scan (nasal bone fracture otherwise negative) Interpretation: Rate: 87 Rhythm: NSR [place]: left Normal P waves. Normal ANISHA. Normal QRS complex. ST T wave : no VELIA qTC: 454 prior studies: no acute ischemia The study has been interpreted contemporaneously by me. . Radiology Impression Discussion of test interpretation with radiology: I have reviewed the radiologist's reading. Independent Historian Clinical information obtained from an independent historian. History obtained from or confirmed by: EMS External Record Review External record reviewed: Inpatient record Prescription Management I considered prescription management with: Pain Medication, Antibiotic and Other Discharge Plan Discharge Clinical Impression: Closed fracture nasal bone, Head injury, Contusion of face, Falls Patient Disposition: Home, Self-Care Instructions: Nasal Fracture (ED), Head Injury (ED), Facial Contusion (ED) Additional Instructions: DO NOT DRINK ALCOHOL YOU HAVE A FRACTURE OF YOUR NASAL BONE YOU NEED TO FOLLOW UP WITH AN ENT IN THE NEXT TWO WEEKS AFTER SWELLING GOES DOWN - DURING THAT TIME AVOID ASPIRIN, BLOWING THE NOSE IN THE NEXT TWO WEEKS IF PERSISTENT NOSE BLEED HAPPENS PLEASE SEEK MEDICAL CARE RETURN FOR WORSENING HEADACHES, CONFUSION, VOMITING OR ANY OTHER CONCERNS ANTIBIOTICS ORDERED GIVEN FRACTURE AND SINUS DISEASE SEEN ON CT SCAN NO BRAIN BLEED NO FRACTURE OF SPINE IN YOUR NECK Prescriptions: New amoxicillin-pot clavulanate 875-125 mg tablet 1 tab PO BID Qty: 10 0RF No Action multivitamin Tablet 1 tab PO DAILY metformin 500 mg Tablet 1,000 mg PO DAILY fluticasone propion-salmeterol [Wixela Inhub] 250-50 mcg/dose Blister With Device 1 inh INHALATION BID atorvastatin 80 mg Tablet 40 mg PO BEDTIME trazodone 50 mg Tablet 50 mg PO BEDTIME PRN (Reason: Insomnia) Rx Instructions: may repeat x1 dose lisinopril 2.5 mg Tablet 2.5 mg PO DAILY Spiriva Respimat 2.5 mcg/actuation Mist 2 puff INHALATION DAILY escitalopram oxalate 5 mg Tablet 5 mg PO DAILY dexamethasone 6 mg tablet 6 mg PO DAILY Qty: 5 0RF pyridoxine (vitamin B6) 50 mg tablet 50 mg PO DAILY 90 Days Qty: 90 1RF Print Language: Wolof
--- OUTSIDE RECORDS SUMMARY | 2024-01-23 21:44 | XMS_ITS | Continuity of Care Document ---
Author Organization [facility] ter Address [address] [place] [id number] Care Team Providers Care Sheet Rock Applicator Name Role Phone Jaime Abreu Primary Care Physician [phone] Encounter [facility] Date(s): 06/23/22 - 06/23/[address] [id number]- Discharge Disposition: A-D/C Walkout Attending Physician: Not on Staff, Attending MD Admitting Physician: Not on Staff, Admitting MD Referring Physician: Not on Staff, Referring MD Allergies, Adverse Reactions, Alerts No Known Allergies Medications Flomax 0.4 mg oral capsule 0.4 mg, 1, capsule, By Mouth, Daily, # 7 tablet, Refills 0, Tot. Refills 0, Maintenance, 12/02/18 19:44:02 EDT, Print Requisition Start Date: 12/02/18 Status: Ordered metFORMIN 500 mg oral tablet 1 tablet = 500 mg, By Mouth, Daily, with meals, # 30 tablet, 0 Refills, Maintenance, 12/04/18 6:42:31 EDT, Tablet Start Date: 12/04/18 Status: Ordered Omeprazole By Mouth, Daily, 0 Refills, Maintenance, 06/27/18 13:13:13 EDT Start Date: 06/27/18 Status: Ordered Percocet-5/325 325 mg-5 mg oral tablet 2, tablet, By Mouth, Every 6 hours, PRN, partial fill at patients request, # 24 tablet, Refills 0, Tot. Refills 0, Maintenance, for pain, 12/02/18 19:43:55 EDT, Print Requisition, Tablet Start Date: 12/02/18 Status: Ordered Ranitidine 0 Refills, Maintenance, 06/27/18 13:13:44 EDT Start Date: 06/27/18 Status: Ordered Sertraline By Mouth, Daily, 0 Refills, Maintenance, 06/27/18 13:13:21 EDT Start Date: 06/27/18 Status: Ordered Tamsulosin 0.4 mg, By Mouth, Daily, Refills 0, Maintenance, 06/27/18 13:13:28 EDT Start Date: 06/27/18 Status: Ordered Trazodone By Mouth, 0 Refills, Maintenance, 06/27/18 13:13:35 EDT Start Date: 06/27/18 Status: Ordered Zofran ODT 4 mg oral tablet, disintegrating 1 tablet = 4 mg, By Mouth, 3 times a day, # 9 tablet, 0 Refills, Maintenance, 12/02/18 19:43:50 EDT Start Date: 12/02/18 Stop Date: 12/05/18 Status: Ordered Problem List Condition Confirmation Course Effective Dates Status Health St atus Informant Obese class I Confirmed Active Vital Signs Most recent to oldest [Reference Range]: 1 2 Height 175 cm (06/23/22:38 AM) 175 cm (06/23/22 AM) Weight 92 kg (06/23/22:38 AM) 92 kg (06/23/22 AM) Oxygen Saturation [94-100 %] 94 % (06/23/22 AM) Pulse Rate [55-90 bpm] 93 bpm *H* (06/23/22 AM) Body Mass Index [18.5-24.99 kg/m2] 30.04 kg/m2 *>HHI* (06/23/22 AM) Blood Pressure [90-138/55-84 mm Hg] 127/ 85mm Hg (06/23/22 AM) Respiratory Rate [16-30 br/min] 18 br/mi n (06/23/22 AM) Temperature [96.8-100.4 DegF] 98 DegF (06/23/22 AM) Mode of Delivery (Oxygen) Room air (06/23/22: AM) Blood pressure sites Arm, right (06/23/22:31 AM) Temperature Route Oral (06/23/22 AM) Dry Weight 92 kg (10/13/22 11:38 AM) 92 kg (06/23/22 11:31 AM) Weight Obtained Via Standing scale (06/23/22 11:31 AM) Dry Weight Obtained Via Standing scale (06/23/22 11:31 AM) Social History Social History Type Response Tobacco Use: stopped smoking 1 week ago 10/08/18. Type: Cigarettes. Sex Patient Care team information Personnel Name: Jaime Abreu Address: Address: [address] [place] [id number]
[2024-01-23 21:59] LABS: MANUAL DIFF FLAG NO
[2024-01-23 22:02] LABS: Basophils Percent Auto 0.2 % (0-2); Hematocrit 41.9 % (42.0-52.0); Hemoglobin 14.2 g/dl (14.0-18.0); Imm Gran Abs Auto 0.08 X10*3/uL (0.00-0.03); Imm Gran Pct Auto 0.6 % (0.0-0.4); Lymphocytes Absolute Auto 1.3 X10*3/uL (1.2-4.9); Lymphocytes Percent Auto 9.5 % (20-40); Mean Corpuscular HGB Conc 33.9 g/dl (31.0-36.0); Mean Corpuscular Hemoglobin 30.3 pg (27.0-33.0); Mean Corpuscular Volume 89.3 fL (80.0-98.0); Mean Platelet Volume 10.6 fL (9.4-12.4); Monocytes Absolute Auto 0.6 X10*3/uL (0.1-1.2); Monocytes Percent Auto 4.5 % (2-11); Neutrophils Absolute Auto 11.7 x10*3/uL (2.0-8.3); Neutrophils Percent Auto 85.2 % (45-73); Platelet Count 285 X10*3/uL (160-400); Red Blood Count 4.69 X10*6/uL (4.60-5.80); Red Cell Distribution Width 13.1 % (11.0-16.0); White Blood Count 13.7 X10*3/uL (4.8-10.8)
[2024-01-23 22:09] LABS: INTERNATIONAL NORM RATIO 1.1 (0.9-1.1); Prothrombin Time 13.3 SEC (11.1-13.3)
[2024-01-23] MEDS: Ondansetron ODT 4 MG TAB.RAPDIS TRANSLINGU (22:13)
[2024-01-23] MEDS: Acetaminophen 325 MG TABLET 650 MG PO (22:13)
[2024-01-23] MEDS: oxyCODONE HCl Immed Release 5 MG TABLET PO (22:13)
--- NOTE | 2024-01-23 22:17 | PC.NURSE ---
Pt ca&ox4, no signs of distress. IV placed. Labs drawn and sent. Pt medicated per nov. Plan of care ongoing.
[2024-01-23 22:18] LABS: Alanine Aminotransferase 29 U/L (0-40); Albumin Level 4.3 g/dL (3.5-5.0); Alkaline Phosphatase 64 U/L (39-117); Anion Gap 20 (12-20); Aspartate Amino Transferase 24 U/L (5-37); Bilirubin Direct 0.1 mg/dL (0.0-0.5); Bilirubin Total 0.4 mg/dL (0.0-1.0); Blood Urea Nitrogen 15 mg/dL (9-16); Calcium 9.5 mg/dL (8.4-10.2); Carbon Dioxide 20 mmol/L (22-29); Chloride 104 mmol/L (96-108); Creatinine Clr Calc Pharmacy 83.3; Estimated Glomerular Filt Rate > 60; Ethanol 59 mg/dL; Glucose Random 285 mg/dL (60-115); Magnesium 1.9 mg/dL (1.6-2.6); Potassium 3.8 mmol/L (3.3-5.1); Sodium 140 mmol/L (135-145); Total Protein 7.9 g/dL (6.5-8.0)
[2024-01-23 22:25] LABS: Troponin-I High Sensitivity 5.2 ng/L (<3.5-35.0)
[2024-01-23 22:39] VITALS: BP 135/75; PULSE 95; RESP 20; O2SAT 96
[2024-01-23 23:28] VITALS: BP 126/72; PULSE 77; RESP 13; O2SAT 94
--- NOTE | 2024-01-23 23:45 | PC.NURSE ---
Pt requested and given drink approved by MD Cohn. Plan of care ongoing.
[2024-01-24 03:59] VITALS: BP 126/72; PULSE 77; RESP 13; TEMP -17.7; TEMP 0; O2SAT 94
--- NOTE | 2024-01-24 04:01 | PC.NURSE ---
pt has been sleeping, and when awake pt stands at his bedside with a steady gait. no s/s of distress.
== END 2024-01-24 04:03 | disposition home or self-care (01) ==
PROVIDERS: Emergency Provider Emergency Medicine
DX: S00.83XA Contusion of other part of head, initial encounter (principal); S02.2XXA Fracture of nasal bones, initial encounter for closed fracture; S09.90XA Unspecified injury of head, initial encounter; W19.XXXA Unspecified fall, initial encounter; F10.920 Alcohol use, unspecified with intoxication, uncomplicated; Y90.2 Blood alcohol level of 40-59 mg/100 ml; I10 Essential (primary) hypertension; E11.9 Type 2 diabetes mellitus without complications; E78.2 Mixed hyperlipidemia; Y93.9 Activity, unspecified; Y92.410 Unspecified street and highway as the place of occurrence of the external cause; Y99.9 Unspecified external cause status; Z79.02 Long term (current) use of antithrombotics/antiplatelets; Z79.84 Long term (current) use of oral hypoglycemic drugs; Z87.891 Personal history of nicotine dependence
CPT/HCPCS: 36415; 70450; 70486; 72125; 80048; 80076; 80307; 82550; 83735; 84484; 85025; 85610; 93005; 99284; 99285

== ENCOUNTER → 2024-01-23 21:18 | Outpatient (BNV) | payer OTHER, SELFPAY | PROVIDERS: Emergency Provider Emergency Medicine; Visit Provider Internal Medicine Cardiovascular Disease | DX: I44.4 Left anterior fascicular block (principal); R94.31 Abnormal electrocardiogram [ECG] [EKG] | CPT/HCPCS: 93010 ==